=== PATIENT | female | born 1940 | race Caucasian/White ===

== ENCOUNTER 2020-06-13 22:33 | Observation (INO) ==
--- OUTSIDE RECORDS SUMMARY | 2020-06-13 22:36 | External Medical Summary | Continuity of Care Document ---
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 Start: 11-Apr-2016 Refills: 0 Aspirin 81 MG TABS; TAKE 1 TABLET DAILY. , M.D. Start: 04-Aug-2014 Refills: 0 Multi-Day Oral Tablet; TAKE 1 TABLET DAILY. , M.D. Start: 04-Aug-2014 Refills: 0 Calcium 600 MG Oral Tablet; Take 1 tablet daily , M.D. Start: 04-Aug-2014 Refills: 0 Feosol 45 MG TABS; Take 1 tablet daily , M.D. S tart: 04-Aug-2014 Refills: 0 Lexapro 20 MG Oral Tablet; TAKE 1 TABLET DAILY. , M.D. Start: 04-Aug-2014 Refills: 0 Atenolol 100 MG Oral Tablet; TAKE 1 TABLET DAILY DIRECTED . , M.D. Start: 04-Aug-2014 Refills: 0 hydroCHLOROthiazide 25 MG Oral Tablet; TAKE 1 TABLET DAILY A S DIRECTED. , M.D. Start: 04-Aug-2014 Refills: 0 Fenofibrate Micronized 67 MG Oral Capsule; TAKE 1 CAPSULE DA LINETTE. M.D. Start: 04-Aug-2014 Refills: 0 Levothyroxine Sodium 150 MCG Oral Tablet ; TAKE 1 TABLET DAILY DIRECTED. FIRST THING IN THE AM ON EMPTY STOMACH WITH GLASS OF H2O WTIH NOTHING TO EAT FOR 30 MIN. CAN Nicholson Start: 15-Dec-2015 Quantity: 90 Refills: 3 Procedures Procedures not documented Immunizations Immunizations not documented Family History Mother No pertinent family history (V49.89) (Z78.9) Status: Active Social History - Smoking Status Never smoked tobacco Plan of Treatment Planned Observations Planned Goals not documented Results No Known Results Results not documented
[2020-06-13] MEDS ORDERED: PIPERACILL/TAZOBAC CONSULT ACTIVE PRN (22:44)
[2020-06-13] MEDS ORDERED: VANCOMYCIN CONSULT ACTIVE PRN (22:44)
[2020-06-13] MEDS ORDERED: PIPERACILLIN/TAZOBACTAM 4.5 GM/120 ML BAG IV ONE (22:44)
[2020-06-13] MEDS ORDERED: VANCOMYCIN HCL 1,500 MG in SODIUM CHLORIDE 0.9% 500 ML IV SCH (22:45)
[2020-06-13 22:53] LABS: Basophils # (auto) 0.02 K/uL (0-0.2); Basophils % (auto) 0.2 %; Eosinophils # (auto) 0.05 K/uL (0-0.5); Eosinophils % (auto) 0.4 %; Hematocrit (blood only) 27.8 % (37-47); Hemoglobin 9.9 g/dL (12.0-16.0); Immature Granulocytes # (auto) 0.04 K/uL (0.00-0.02); Immature Granulocytes % (auto) 0.3 %; Lymphocytes # (auto) 1.07 K/uL (1.2-3.4); Lymphocytes % (auto) 9.2 %; Mean Corpuscular Hemoglobin 31.2 pg (25-34); Mean Corpuscular Hgb Conc 35.6 g/dL (32-36); Mean Corpuscular Volume 87.7 fL (80-100); Mean Platelet Volume 9.1 fL (7.4-10.4); Monocytes # (auto) 0.75 K/uL (0.11-0.59); Monocytes % (auto) 6.5 %; Neutrophils # (auto) 9.67 K/uL (1.4-6.5); Neutrophils % (auto) 83.4 %; Platelet Count 269 K/uL (130-400); RDW Standard Deviation 45.1 fL (36.4-46.3); Red Blood Count 3.17 M/uL (4.2-5.4)
[2020-06-13 23:02] LABS: INR 1.1 (0.9-1.1); Partial Thromboplastin Ratio 0.8; Partial Thromboplastin Time 21.3 Seconds (21.0-31.0); Prothrombin Time 11.9 Seconds (9.0-12.0)
[2020-06-13 23:14] LABS: Alanine Aminotransferase 22 U/L (12-78); Albumin Level 3.4 gm/dl (3.4-5.0); Aspartate Aminotransferase 21 U/L (15-37); BUN Creatinine Ratio 18.9 (10-20); Blood Urea Nitrogen 22 mg/dl (7-18); Calcium 9.1 mg/dl (8.5-10.1); Carbon Dioxide 25 mmol/L (21-32); Chloride 110 mmol/L (98-107); Est GFR (African American) 50.1; Est GFR (Non-African American) 43.2; Glucose 135 mg/dl (70-99); Magnesium 1.7 mg/dl (1.8-2.4); Potassium 3.7 mmol/L (3.5-5.1); Sodium 142 mmol/L (136-145)
[2020-06-13 23:19] LABS: Alkaline Phosphatase 57 U/L (45-117); Bilirubin,Total 0.3 mg/dl (0.2-1); Globulin 3.5 gm/dl (2.5-4.0); Total Protein 6.9 gm/dl (6.4-8.2); Troponin I < 0.015 ng/ml (0-0.045)
[2020-06-13 23:36] LABS: Appearance Urine Clear (Clear); Bacteria Urine Automated 2+ (Negative); Bilirubin Urine Negative (Negative); Blood Urine Negative (Negative); Cast Urine Automated 0 /lpf (0-5); Color Urine Yellow; Glucose Urine UA Negative (Negative); Ketones Urine Negative (Negative); Leukocyte Esterase Urine Trace (Negative); Nitrite Urine Negative (Negative); Protein Urine Negative (Negative); RBC Urine Automated 0-4 /hpf (0-4); Specific Gravity Urine 1.017 (1.000-1.030); Urobilinogen Urine Negative (Negative)
--- NOTE | 2020-06-14 00:39 | Emergency Department Note ---
Impression & Plan Fever, Productive cough, Abdominal pain, LLQ, Leukocytosis, Diverticulitis large intestine ED Provider Note INFORMANT: Patient EMS ED PROVIDER(S): Stepan Ojeda MD CHIEF COMPLAINT: Illness PLAN: Disposition: Admitted Condition: Good MEDICAL DECISION MAKING: Patient presented to emerge department because of illness. She was febrile. She stated she was profoundly weak and had a productive cough. Chest imaging was performed and showed some mild perihilar congestion on the left. She had a mild leukocytosis on CBC. Chemistry panel was unremarkable. Urinalysis did show some bacteriuria. The patient had a negative rapid COVID test performed. She did have abdominal pain on examination in the left lower quadrant. CT imaging was performed and did reveal colonic diverticulitis. She was treated with Zosyn and vancomycin initially because of concerns for sepsis. This will cover the diverticulitis well. Given the profound weakness I discussed further management in the hospital. Family was very much in agreement. The patient was as well. Consultation was made with the hospitalist service, Dr. Jerrod mcclain. The patient was evaluated by the team in the ER and admitted. Triage Nursing notes reviewed and agree them. Additional history obtained from EMS and family Vital Signs: reviewed and remarkable for fever Differential diagnosis: Viral syndrome, colitis, diverticulitis, pharyngitis, pneumonia, influenza, meningitis, urinary tract infection, sepsis, bacteremia, as well as other pathologies. Diagnostics interpreted by me: ECG: Rate: 88 Rhythm:Normal sinus [place]:Normal QRS:Normal ST segements:No elevation or depression Other:No PACs or PVCs Cardiac Monitoring: Cardiac monitoring ordered by me: The patient was placed on continuous cardiac monitoring and observed. It revealed a normal sinus rhythm at 92 beats per minute without ectopy or evidence of dysrhythmia. Imaging studies: Chest x-ray shows perihilar congestion. No pneumothorax or free air. CT imaging of the abdomen pelvis reveals mild diverticulitis of the distal colon. Diverticulosis of the sigmoid noted. I refer you to the EMR for further details. Consultation(s): [facility] service HPI: The patient is a 79 year old female who presents to the Emergency Room with complaints of fever. This started a few days ago and is worsening. The patient also notes the following associated symptoms, productive cough and generalized weakness. The patient has found no relieving factors. Patient notes that she has some mild left lower quadrant burning abdominal pain. This has been going on for several days as well. Over a week ago she started with having diarrhea and had some nausea and vomiting. The nausea, vomiting diarrhea has since resolved. She does note several family members that have been sick with flulike symptoms. Her granddaughter was tested negative for coronavirus. Pt denies LOC, headache, diaphoresis, visual changes, neck pain, chest pain, back pain, melena, hematochezia, urinary symptoms, numbness, lymphadenopathy, rash, or other complaints. ROS: See above HPI for pertinent positives & negatives. A total of 10 systems reviewed and were otherwise negative. PAST MEDICAL HISTORY:See Below hypertension, C. difficile PAST SURGICAL HISTORY:See Below thyroidectomy FAMILY HISTORY:See Below SOCIAL HISTORY:See Below lives with family HOME MEDICATIONS:See Below ALLERGIES:See Below VITALS:See Below PHYSICAL EXAMINATION: GENERAL: Awake, alert, mildly ill-appearing, in no distress HENT: Normocephalic, atraumatic. Oropharynx unremarkable. EYES: Normal conjunctiva. Sclera non-icteric. NECK: Inspection normal. Non-tender. Supple. No nuchal rigidity. FROM. No masses. RESPIRATORY: Diminished in the bases otherwise clear to auscultation. No wheezes. No rales. Mild increased respiratory effort. CARDIAC: Normal rate. Normal rhythm. No murmurs. No rubs. Extremities warm and well perfused. Pulses equal. No JVD. GI: Soft, non-distended. Left lower quadrant tenderness to palpation. No rebound or guarding. No masses. RECTAL: Deferred. MUSCULOSKELETAL: Atraumatic. Chest examination reveals no tenderness. The back is symmetrical on inspection without obvious abnormality. There is no CVA tenderness to palpation. No joint edema. LOWER EXTREMITIES: Calves are equal size bilaterally and non-tender. No edema. No discoloration. NEURO: Normal sensorium. No sensory or motor deficits noted. SKIN: No rash or jaundice noted. ED COURSE: Critical Care: None Stepan Ojeda MD Past Med/Surg History Social History Smoking Status: Never smoker Feels Safe at Home: Yes Allergies Allergies Allergy/AdvReac Type Severity Reaction Status Date / Time No Known Allergies Allergy Unverified 06/13/20 23:45 Home Meds Home Medications Medication Instructions Recorded Confirmed amlodipine 5 mg PO DAILY 06/13/20 06/13/20 aspirin [Aspirin Low-Strength] 81 mg PO DAILY 06/13/20 06/13/20 carvedilol 25 mg PO BID 06/13/20 06/13/20 escitalopram oxalate 20 mg PO DAILY 06/13/20 06/13/20 fenofibrate micronized 134 mg PO DAILY 06/13/20 06/13/20 fluocinonide 1 applic TOPICAL BID 06/13/20 06/13/20 furosemide 20 mg PO DAILY 06/13/20 06/13/20 hydralazine 50 mg PO TID 06/13/20 06/13/20 ketoconazole 1 applic TOPICAL UD 06/13/20 06/13/20 levothyroxine 175 mcg PO DAILY 06/13/20 06/13/20 lisinopril 20 mg PO BID 06/13/20 06/13/20 multivitamin [Multiple Vitamin] 1 tab PO DAILY 06/13/20 06/13/20 phenytoin sodium extended 200 mg PO DAILY 06/13/20 06/13/20 phenytoin sodium extended 300 mg PO AMHS 06/13/20 06/13/20 Results & Data (ED) Vital Signs Vital Signs - 24 hr 06/13/20 22:40 06/13/20 23:00 06/13/20 23:18 Temperature 37.6 C H Temperature Source Oral Pulse Rate 90 87 83 Pulse Rate from SpO2 Sensor 91 H 86 Respiratory Rate 31 H 24 23 Respiratory Effort / Characteristics Non-Labored Spontaneous Respiratory Depth Normal Blood Pressure 166/67 H 159/55 H 159/55 H Blood Pressure Mean 98 100 89 Pulse Oximetry 95 97 95 Oxygen Delivery Method Room Air Room Air Room Air Sepsis Recent Fever Within 48 Hours Yes Sepsis New/Unexplained Change in Mental Status No Sepsis Action Taken by Nursing No Action Required 06/13/20 23:30 06/13/20 23:35 06/14/20 00:00 Temperature Temperature Source Pulse Rate 80 78 Pulse Rate from SpO2 Sensor 81 Respiratory Rate 24 24 Respiratory Effort / Characteristics Respiratory Depth Blood Pressure 123/63 122/48 L Blood Pressure Mean 97 77 Pulse Oximetry 96 96 Oxygen Delivery Method Room Air Room Air Sepsis Recent Fever Within 48 Hours Sepsis New/Unexplained Change in Mental Status Sepsis Action Taken by Nursing 06/14/20 00:30 06/14/20 01:03 Temperature Temperature Source Pulse Rate 76 82 Pulse Rate from SpO2 Sensor Respiratory Rate 24 24 Respiratory Effort / Characteristics Respiratory Depth Blood Pressure 119/66 168/79 H Blood Pressure Mean 91 120 Pulse Oximetry 94 98 Oxygen Delivery Method Sepsis Recent Fever Within 48 Hours Sepsis New/Unexplained Change in Mental Status Sepsis Action Taken by Nursing Laboratory Data Result diagrams: 06/13/20 22:42 06/13/20 22:42 Lab Results 06/13/20 06/13/20 06/13/20 Range/Units 22:42 22:42 22:42 WBC 11.60 H (4.8-10.8) K/uL RBC 3.17 L (4.2-5.4) M/uL Hgb 9.9 L (12.0-16.0) g/dL Hct 27.8 L (37-47) % MCV 87.7 (80-100) fL MCH 31.2 (25-34) pg MCHC 35.6 (32-36) g/dL RDW Std Deviation 45.1 (36.4-46.3) fL RDW Coeff of Gee 14.0 (11.5-14.5) % Plt Count 269 (130-400) K/uL MPV 9.1 (7.4-10.4) fL Immature Gran % (Auto) 0.3 % Neut % (Auto) 83.4 % Lymph % (Auto) 9.2 % [place] % (Auto) 6.5 % Eos % (Auto) 0.4 % Baso % (Auto) 0.2 % Neut # (Auto) 9.67 H (1.4-6.5) K/uL Lymph # (Auto) 1.07 L (1.2-3.4) K/uL [place] # (Auto) 0.75 H (0.11-0.59) K/uL Eos # (Auto) 0.05 (0-0.5) K/uL Baso # (Auto) 0.02 (0-0.2) K/uL Immature Gran # (Auto) 0.04 H (0.00-0.02) K/uL PT 11.9 (9.0-12.0) Seconds INR 1.1 (0.9-1.1) APTT 21.3 (21.0-31.0) Seconds PTT Ratio 0.8 Sodium 142 (136-145) mmol/L Potassium 3.7 (3.5-5.1) mmol/L Chloride 110 H (98-107) mmol/L Carbon Dioxide 25 (21-32) mmol/L Anion Gap 7.0 (3-11) BUN 22 H (7-18) mg/dl Creatinine 1.18 (0.6-1.2) mg/dl Est Cr Clr Drug Dosing Not Reportable Est GFR ( Amer) 50.1 Est GFR (Non-Af Amer) 43.2 BUN/Creatinine Ratio 18.9 (10-20) Glucose 135 H (70-99) mg/dl Lactate (0.4-2.0) mmol/L Calcium 9.1 (8.5-10.1) mg/dl Magnesium 1.7 L (1.8-2.4) mg/dl Total Bilirubin 0.3 (0.2-1) mg/dl AST 21 (15-37) U/L ALT 22 (12-78) U/L Alkaline Phosphatase 57 (45-117) U/L Troponin I < 0.015 (0-0.045) ng/ml Total Protein 6.9 (6.4-8.2) gm/dl Albumin 3.4 (3.4-5.0) gm/dl Globulin 3.5 (2.5-4.0) gm/dl Albumin/Globulin Ratio 1.0 (0.9-2) Procalcitonin (0-0.5) ng/ml Urine Color Urine Appearance (Clear) Urine pH (4.5-7.5) Ur Specific [place] (1.000-1.030) Urine Protein (Negative) Urine Glucose (UA) (Negative) Urine Ketones (Negative) Urine Blood (Negative) Urine Nitrite (Negative) Urine Bilirubin (Negative) Urine Urobilinogen (Negative) Ur Leukocyte Esterase (Negative) Urine WBC (Auto) (0-5) /hpf Urine RBC (Auto) (0-4) /hpf U Hyaline Cast (Auto) (0-5) /lpf U Epithel Cells (Auto) (0-5) /lpf Urine Bacteria (Auto) (Negative) COVID-19 Eval Order COVID-19 PCR (Negative) 06/13/20 06/13/20 06/13/20 Range/Units 22:42 22:45 22:50 WBC (4.8-10.8) K/uL RBC (4.2-5.4) M/uL Hgb (12.0-16.0) g/dL Hct (37-47) % MCV (80-100) fL MCH (25-34) pg MCHC (32-36) g/dL RDW Std Deviation (36.4-46.3) fL RDW Coeff of Gee (11.5-14.5) % Plt Count (130-400) K/uL MPV (7.4-10.4) fL Immature Gran % (Auto) % Neut % (Auto) % Lymph % (Auto) % [place] % (Auto) % Eos % (Auto) % Baso % (Auto) % Neut # (Auto) (1.4-6.5) K/uL Lymph # (Auto) (1.2-3.4) K/uL [place] # (Auto) (0.11-0.59) K/uL Eos # (Auto) (0-0.5) K/uL Baso # (Auto) (0-0.2) K/uL Immature Gran # (Auto) (0.00-0.02) K/uL PT (9.0-12.0) Seconds INR (0.9-1.1) APTT (21.0-31.0) Seconds PTT Ratio Sodium (136-145) mmol/L Potassium (3.5-5.1) mmol/L Chloride (98-107) mmol/L Carbon Dioxide (21-32) mmol/L Anion Gap (3-11) BUN (7-18) mg/dl Creatinine (0.6-1.2) mg/dl Est Cr Clr Drug Dosing Est GFR ( Amer) Est GFR (Non-Af Amer) BUN/Creatinine Ratio (10-20) Glucose (70-99) mg/dl Lactate (0.4-2.0) mmol/L Calcium (8.5-10.1) mg/dl Magnesium (1.8-2.4) mg/dl Total Bilirubin (0.2-1) mg/dl AST (15-37) U/L ALT (12-78) U/L Alkaline Phosphatase (45-117) U/L Troponin I (0-0.045) ng/ml Total Protein (6.4-8.2) gm/dl Albumin (3.4-5.0) gm/dl Globulin (2.5-4.0) gm/dl Albumin/Globulin Ratio (0.9-2) Procalcitonin < 0.05 (0-0.5) ng/ml Urine Color Yellow Urine Appearance Clear (Clear) Urine pH 8.0 H (4.5-7.5) Ur Specific [place] 1.017 (1.000-1.030) Urine Protein Negative (Negative) Urine Glucose (UA) Negative (Negative) Urine Ketones Negative (Negative) Urine Blood Negative (Negative) Urine Nitrite Negative (Negative) Urine Bilirubin Negative (Negative) Urine Urobilinogen Negative (Negative) Ur Leukocyte Esterase Trace H (Negative) Urine WBC (Auto) 1-5 (0-5) /hpf Urine RBC (Auto) 0-4 (0-4) /hpf U Hyaline Cast (Auto) 0 (0-5) /lpf U Epithel Cells (Auto) 5-10 H (0-5) /lpf Urine Bacteria (Auto) 2+ H (Negative) COVID-19 Eval Order Covid19 Done at [facility] COVID-19 PCR (Negative) 06/13/20 06/13/20 Range/Units 22:50 23:10 WBC (4.8-10.8) K/uL RBC (4.2-5.4) M/uL Hgb (12.0-16.0) g/dL Hct (37-47) % MCV (80-100) fL MCH (25-34) pg MCHC (32-36) g/dL RDW Std Deviation (36.4-46.3) fL RDW Coeff of Gee (11.5-14.5) % Plt Count (130-400) K/uL MPV (7.4-10.4) fL Immature Gran % (Auto) % Neut % (Auto) % Lymph % (Auto) % [place] % (Auto) % Eos % (Auto) % Baso % (Auto) % Neut # (Auto) (1.4-6.5) K/uL Lymph # (Auto) (1.2-3.4) K/uL [place] # (Auto) (0.11-0.59) K/uL Eos # (Auto) (0-0.5) K/uL Baso # (Auto) (0-0.2) K/uL Immature Gran # (Auto) (0.00-0.02) K/uL PT (9.0-12.0) Seconds INR (0.9-1.1) APTT (21.0-31.0) Seconds PTT Ratio Sodium (136-145) mmol/L Potassium (3.5-5.1) mmol/L Chloride (98-107) mmol/L Carbon Dioxide (21-32) mmol/L Anion Gap (3-11) BUN (7-18) mg/dl Creatinine (0.6-1.2) mg/dl Est Cr Clr Drug Dosing Est GFR ( Amer) Est GFR (Non-Af Amer) BUN/Creatinine Ratio (10-20) Glucose (70-99) mg/dl Lactate 1.1 (0.4-2.0) mmol/L Calcium (8.5-10.1) mg/dl Magnesium (1.8-2.4) mg/dl Total Bilirubin (0.2-1) mg/dl AST (15-37) U/L ALT (12-78) U/L Alkaline Phosphatase (45-117) U/L Troponin I (0-0.045) ng/ml Total Protein (6.4-8.2) gm/dl Albumin (3.4-5.0) gm/dl Globulin (2.5-4.0) gm/dl Albumin/Globulin Ratio (0.9-2) Procalcitonin (0-0.5) ng/ml Urine Color Urine Appearance (Clear) Urine pH (4.5-7.5) Ur Specific [place] (1.000-1.030) Urine Protein (Negative) Urine Glucose (UA) (Negative) Urine Ketones (Negative) Urine Blood (Negative) Urine Nitrite (Negative) Urine Bilirubin (Negative) Urine Urobilinogen (Negative) Ur Leukocyte Esterase (Negative) Urine WBC (Auto) (0-5) /hpf Urine RBC (Auto) (0-4) /hpf U Hyaline Cast (Auto) (0-5) /lpf U Epithel Cells (Auto) (0-5) /lpf Urine Bacteria (Auto) (Negative) COVID-19 Eval Order COVID-19 PCR NEGATIVE (Negative) Administered Medications Vancomycin HCl 1,500 mg/ (Sodium Chloride) 530 mls @ 200 mls/hr IV UD ELISABETH Stop: 06/15/20 22:44 Last Admin: 06/13/20 23:21 Dose: 200 mls/hr Documented by: [id number] Discontinued Medications Piperacillin Sod/Tazobactam Sod (Zosyn) 4.5 gm in 120 mls @ 240 mls/hr IV NOW ONE Stop: 06/13/20 23:13 Last Infusion: 06/13/20 23:51 Dose: 0 mls/hr Documented by: [id number] Admin: 06/13/20 23:21 Dose: 240 mls/hr Documented by: [id number] Discharge Plan Visit Data Chief Complaint: Illness Stated Complaint: FLU LIKE SX, COUGH, FEVER, CHILLS, DIARRHEA, ED Provider: Stepan Ojeda Discharge Problem: Fever, Productive cough, Abdominal pain, LLQ, Leukocytosis, Diverticulitis large intestine Forms Stand Alone Forms: [facility] Prescriptions Prescriptions: No Action levothyroxine 175 mcg tablet 175 mcg PO DAILY RF: 0 lisinopril 20 mg tablet 20 mg PO BID RF: 0 amlodipine 5 mg tablet 5 mg PO DAILY RF: 0 aspirin [Aspirin Low-Strength] 81 mg Tablet,Delayed Release (Dr/Ec) 81 mg PO DAILY RF: 0 carvedilol 25 mg tablet 25 mg PO BID RF: 0 fenofibrate micronized 134 mg capsule 134 mg PO DAILY RF: 0 escitalopram oxalate 20 mg tablet 20 mg PO DAILY RF: 0 ketoconazole 2 % shampoo 1 applic TOPICAL UD RF: 0 phenytoin sodium extended 100 mg capsule 300 mg PO AMHS RF: 0 phenytoin sodium extended 100 mg capsule 200 mg PO DAILY RF: 0 hydralazine 50 mg tablet 50 mg PO TID RF: 0 furosemide 20 mg tablet 20 mg PO DAILY RF: 0 fluocinonide 0.05 % solution 1 applic TOPICAL BID RF: 0 multivitamin [Multiple Vitamin] Tablet 1 tab PO DAILY RF: 0
--- NOTE | 2020-06-14 02:06 | History & Physical Report ---
Date of Service June 14, 2020 Assessment & Plan (1) Fever: (2) Abdominal pain, LLQ: Leia is an 79-year-old female with a past medical history of hypertension, hyperlipidemia, depression, carotid artery stenosis, mitral regurg, history of seizures during on anticonvulsants without seizures in the last 5 years who presents with weakness and left lower quadrant abdominal pain. Diverticulitis CT-Ab shows of lower quadrant thickening of the distal left colon consistent with colitis vs diverticulitis. Followup for resolution recommended by radiology. -Patient reportedly febrile to 100.0 prior to admission Leukocytosis to 11.6 - Rocephin 2 g IV daily plus Flagyl 500 mg every 8 hours - Clear liquid diet - Follow clinically. Chronic anemia Patient with chronic iron deficiency anemia Hemoglobin 9.9 Hold iron in the setting of GI illness Hypertension Continue amlodipine Continue carvedilol Continue lisinopril Hyperlipidemia, carotid artery stenosis Continue fenofibrate Patient not on statin therapy History of seizures without recent seizure - Continue home dosing of phenytoin 300mg PO AM/HS + 200mg daily - No recent seizures Asymptomatic bacteriuria Patient without dysuria, new symptoms. 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 She says she recently had a colonoscopy which shoed Slowly worsening. Chills x1 day. Was told she had a fever to 100.[address] ambulance [address] the way over. Her appetite is decreased for a few days, althoguh she notes she 'lives by myself and don't eat alot, just enough.' Decreased po intake 3-4 days. Usually has constipation, but had some loose bowels 1 week ago. Last BM this morning was soft but not liquid, no blood. Her bowel movements are normally black because she takes oral iron. No lightheadedness, dizziness normally but when she had diarrhea she was a little lightheaded on the commode. No chest pain or chest pressure. The pain in her belly seem sto be saying about the same as when it started, has been coming or going throughout the day. History of UTIs which felt similar, but which were lower down. No recent polyuria/incontinence/dysuria. MEdHx: Reviewed. Hx of seizures, no seizures in 7 years. Meds: Reviewed SHx: Reviewed Social: No EtoH, tobacco, or recreational drug use. Allergies: NKDA. CODE STATUS: Full Code Allergies Allergy/AdvReac Type Severity Reaction Status Date / Time No Known Allergies Allergy Unverified 06/13/20 23:45 Home Medications Home Medications Medication Instructions Recorded Confirmed Type amlodipine 5 mg PO DAILY 06/13/20 06/13/20 History aspirin [Aspirin Low-Strength] 81 mg PO DAILY 06/13/20 06/13/20 History carvedilol 25 mg PO BID 06/13/20 06/13/20 History escitalopram oxalate 20 mg PO DAILY 06/13/20 06/13/20 History fenofibrate micronized 134 mg PO DAILY 06/13/20 06/13/20 History fluocinonide 1 applic TOPICAL BID 06/13/20 06/13/20 History furosemide 20 mg PO DAILY 06/13/20 06/13/20 History hydralazine 50 mg PO TID 06/13/20 06/13/20 History ketoconazole 1 applic TOPICAL UD 06/13/20 06/13/20 History levothyroxine 175 mcg PO DAILY 06/13/20 06/13/20 History lisinopril 20 mg PO BID 06/13/20 06/13/20 History multivitamin [Multiple Vitamin] 1 tab PO DAILY 06/13/20 06/13/20 History phenytoin sodium extended 200 mg PO DAILY 06/13/20 06/13/20 History phenytoin sodium extended 300 mg PO AMHS 06/13/20 06/13/20 History Past Med/Surg History Social History Smoking Status: Never smoker Second Hand Exposure: No; Do You Dip or Chew Tobacco: No; Tobacco Cessation Education Requested by Patient: No Hx Alcohol Use: No Hx Substance Use: No Preferred Language: Portuguese Communication Ability: Effective Locomotive Firer/Fireman Required: No Beliefs That Will Affect Care: None Current Living Situation: Alone Other Information That Helps Us Care for You: No Feels Safe at Home: Yes Safety Concerns: Feels Safe At This Time Review of Systems Review of Systems: All systems reviewed & are unremarkable except as noted in HPI & below Physical Exam Physical Exam: General: A&Ox3. NAD. Cooperative. HEENT: Atraumatic, normocephalic. Pulm: CTAB A&P. -wheezes, -rales, -rhonchi. Symmetrical chest rise. No increase work of breathing. No respiratory distress. Cardiac: RRR, +systolic murmer, -rg. Radial pulses intact and symmetrical. Abdominal: LLQ TTP. Otherwise NT, no rebound, soft, ND. Extremities: No ankle edema. Extremities warm, dry. Bench Assembly Inspector strength, ankle plantar flexion/dorsiflexion 5/5. PT pulses intact bilaterally and symmetrical. Results & Data Results & Data ([facility]) Vital Signs (Past 12 Hours) Vital Signs Temp Pulse Resp BP Pulse Ox 06/14/20 01:03 82 24 168/79 H 98 06/14/20 00:30 76 24 119/66 94 06/14/20 00:00 78 24 122/48 L 96 06/13/20 23:30 80 24 123/63 96 06/13/20 23:18 37.6 C H 83 23 159/55 H 95 06/13/20 23:00 87 24 159/55 H 97 06/13/20 22:40 90 31 H 166/67 H 95 Supervising Physician Co-Signing Physician Notes Attending addendum: I have physically seen this patient, have supervised the medical residents activities, and agree with the H&P unless as otherwise noted. Assessment and Plan: Diverticulitis/colitis- CT with involvement of distal left colon. Placed on ceftriaxone 2 g IV daily and Flagyl 500 mg IV every 8 hours Clear liquid diet as tolerated Acetaminophen 650 mg p.o. every 6 hours PRN mild pain or temperature Hypertension- Continue amlodipine, carvedilol and lisinopril. Follow serial BMP and magnesium levels Seizure disorder- Continue usual dosing of phenytoin, check level in a.m. Bacteriuria- Follow urine culture sensitivities Ceftriaxone IV as noted above Chronic iron deficiency anemia- Hemoglobin 9.9. Remaining orders and notations as noted. Resident Activity Tracking Resident Involvement: Resident Care Provided Care Provided: Adult [facility]
[2020-06-14] MEDS ORDERED: ACETAMINOPHEN 325 MG TAB PO PRN (03:57)
[2020-06-14] MEDS ORDERED: ONDANSETRON INJ 2 MG/ML 2 ML VIAL IV PRN (03:57)
[2020-06-14] MEDS: SODIUM CHLORIDE 0.9% 1000ML 1,000 ML IV SCH ×2 (04:01→17:17)
[2020-06-14] MEDS: cefTRIAXone SODIUM 2,000 MG in DEXTROSE 5% 50 ML IV SCH (05:01)
[2020-06-14] MEDS: metroNIDAZOLE 500 MG/100 ML BAG IV SCH ×3 (05:40→20:15)
[2020-06-14] MEDS: LEVOTHYROXINE SODIUM 175 MCG TABLET PO SCH (05:43)
--- NOTE | 2020-06-14 07:50 | XRay Report ---
XR chest 1V portable HISTORY: SEPSIS COMPARISON: Chest 12/01/2014. FINDINGS: The heart remains mildly enlarged. There is elevation the right hemidiaphragm unchanged. A few bibasilar linear densities favor subsegmental atelectasis. This is also unchanged. No new focal l edgar consolidations to suggest pneumonia. No evidence for pulmonary edema. No pneumothorax. IMPRESSION: No significant change compared to the prior study. No acute process. ACT 112: Negative or not required by law. Electronically signed by: Reynaldo Randhawa M.D. 06/14/2020 7:48 AM
--- NOTE | 2020-06-14 08:05 | CT Scan Report ---
CT SCAN OF THE ABDOMEN AND PELVIS WITHOUT CONTRAST CLINICAL HISTORY: fever, cough, LLQ pain COMPARISON STUDY: None TECHNIQUE: CT scan of the abdomen and pelvis was performed from the lung bases to the proximal femurs . Images are reviewed in the axial, sagittal, and coronal planes. IV contrast was not administered fo r this examination. A dose lowering technique was utilized adhering to the principles of ALARA. CT DOSE: 451.02 mGy.cm FINDINGS: Lower chest: There is respiratory motion artifact. There are no significant pleural effusions. There is no lobar consolidation the heart is enlarged Liver: There are subcentimeter hepatic hypodensity, which are too small to characterize Gallbladder: There is increased density within the gallbladder suggestive of milk of calcium or vicar ious excretion. There are calculi in the region of the gallbladder neck. Spleen: Normal in size and attenuation. Pancreas: Unremarkable. Adrenal glands: Unremarkable. Kidneys: Renal hypodensities are nonspecific likely represent cysts Bowel: There are no transition zones indicate bowel obstruction. There is colonic diverticulosis. The re is colonic wall thickening involving the distal descending colon with minimal infiltration of the surrounding fat. The findings likely represent diverticulitis although an infectious/inflammatory col itis could appear similar. Peritoneum: There is no intraperitoneal free air or abdominal ascites. Vasculature: The abdominal aorta is normal in course and caliber. Adenopathy: None. Pelvic viscera: The bladder, and pelvic viscera are unremarkable. Skeletal structures: No destructive osseous lesions are seen. IMPRESSION: 1. Colonic wall thickening involving the distal descending colon with minimal infiltration of the danial rounding fat. Diagnostic considerations include diverticulitis versus infectious/inflammatory colitis . Follow-up recommended 2. No evidence of bowel obstruction. No evidence of free air 3. Increased density of the gallbladder. Milk of calcium versus vicarious excretion. Calculi in the r egion the gallbladder neck. ACT 112: Negative or not required by law. Electronically signed by: Mookie Foster M.D. 06/14/2020 8:04 AM
[2020-06-14] MEDS: TRICOR~ORDER AWAITING ACTION SCH ×3 (08:06→23:19)
[2020-06-14] MEDS: HydrALAZINE TAB 50 MG TAB PO SCH ×3 (08:43→20:14)
[2020-06-14] MEDS: carvediloL 25 MG TAB PO SCH ×2 (08:44→20:15)
[2020-06-14] MEDS: PHENYTOIN SODIUM ER 100 MG CAP PO SCH ×3 (08:44→20:14)
[2020-06-14] MEDS: AMLODIPINE BESYLATE 5 MG TAB PO SCH (08:45)
[2020-06-14] MEDS: ESCITALOPRAM OXALATE 20 MG TAB PO SCH (08:45)
[2020-06-14] MEDS: MULTIVITAMIN TAB PO SCH (08:45)
[2020-06-14] MEDS: FUROSEMIDE 20 MG TAB PO SCH (08:45)
[2020-06-14] MEDS: MAGNESIUM OXIDE 400 MG TAB PO SCH ×2 (08:45→20:15)
[2020-06-14] MEDS: lisinopriL 20 MG TAB PO SCH ×2 (08:45→20:14)
[2020-06-14] MEDS: ASPIRIN 81 MG ECTAB PO SCH (08:45)
--- NOTE | 2020-06-14 12:10 | Electrocardiogram Report ---
Test Reason : Blood Pressure : / mmHG Vent. 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
--- NOTE | 2020-06-14 12:44 | Hospitalist Progress Note ---
Date of Service June 14, 2020 Assessment & Plan (1) Fever: (2) Abdominal pain, LLQ: Leia is an 79-year-old female with a past medical history of hypertension, hyperlipidemia, depression, carotid artery stenosis, mitral regurg, history of seizures during on anticonvulsants without seizures in the last 5 years who was admitted on 06/14/[address] Diverticul[address] CT-Ab shows of lower quadrant thickening of the distal left colon consistent with colitis vs diverticulitis. Follow-up for resolution recommended by radiology. -Patient reportedly febrile to 100.0 prior to admission Leukocytosis to 11.6 - Continue Rocephin 2 g IV daily plus Flagyl 500 mg IV Q8H - Clear liquid diet - IVFs discontinued as patient takes Furosemide 20 mg PO daily as outpatient - Follow clinically. Chronic anemia Chronic iron deficiency anemia Hemoglobin 9.9 - No clinical or radiographic signs of active bleeding Hold iron in the setting of GI illness - Continue to trend CBC daily - consider outpatient colonscopy after discharge to r/o colon cancer Hypertension Continue amlodipine 5 mg PO daily Continue carvedilol 25 mg PO BID Continue lisinopril 20 mg PO BID Hyperlipidemia, carotid artery stenosis Continue fenofibrate 134 mg PO daily Patient not on statin therapy History of seizures without recent seizure - Continue home dosing of phenytoin 300mg PO AM/HS + 200mg daily - No recent seizures Asymptomatic bacteriuria Patient without dysuria, new symptoms. - Not indicated for treatment, double covered by Rocephin as above UCx pending DVT prophylaxis: Heparin weight-based CODE STATUS: Full code Diet: Clears, advance as tolerated Disposition: Med/surg (3) Productive cough: (4) Leukocytosis: (5) Diverticulitis large intestine: (6) Hypertension: (7) Carotid stenosis, asymptomatic: (8) Generalized convulsive epilepsy without intractable epilepsy: (9) PEG (percutaneous endoscopic gastrostomy) status: Admission and Anticipated Discharge Date Admission Date: June 14, 2020 Supervising Physician Co-Signing Physician Notes I personally examined the patient and verified all minaya points of history and exam, discussed case, and agree with decision making with Dr Chika singh feeling better, thinks could eat more vitals noted nad heent nc at mmm breathing unlabored no accessory muscles good effort abd soft nd mild LLQ tender no guarding no rebound diverticulitis -improving, advance diet, continue ceftriaxone and flagyl, hopefully home tomorrow Subjective No acute events overnight. Afebrile since arrival at hospital, BP increased to 215/66 overnight then down to 185/68 this morning - BP meds will be administered this morning. NSS infusing @ 80cc/hr. Continues to complain of abdominal pain but denies fever/chills, chest pain/palpitations, shortness of breath, cough, nausea/vomiting, dysuria, hematochezia, increased urinary frequency. Review of Systems Constitutional: as per Subjective / HPI Respiratory: as per Subjective / HPI Cardiovascular: as per Subjective / HPI Gastrointestinal: as per Subjective / HPI Genitourinary: as per Subjective / HPI Physical Exam Constitutional: WD/WN, vitals as above no acute distress ENMT: external ear and nose normal, oropharynx normal Neck: normal visual inspection Respiratory: normal respiratory effort, lungs clear to auscultation Cardiovascular: RRR, no murmur, no edema Gastrointestinal (Abdomen): Inspection/Auscultation: normal bowel sounds; abdomen not distended Percussion/Palpation: + abdomen tender (moderate-severe tenderness to palpation of LLQ) and abdomen soft; no guarding and abdomen not rigid Musculoskeletal: no cyanosis or clubbing, extremities motor strength 5/5 Skin: no rashes, warm and dry Psychiatric: A+Ox3, euthymic affect Lymphatic: no cervical lymphadenopathy Results & Data Results & Data ([facility]) Vital Signs (Past 12 Hours) Vital Signs Temp Pulse Pulse Resp BP BP BP 06/14/20 07:04 36.8 C 81 18 185/68 H 06/14/20 04:00 36.8 C 76 20 215/66 H 198/73 H 06/14/20 03:00 74 23 157/87 H 06/14/20 02:30 74 24 144/71 H 06/14/20 02:00 37.2 C 77 20 159/63 H 06/14/20 01:30 75 24 146/86 H 06/14/20 01:03 82 24 168/79 H Pulse Ox 06/14/20 07:04 97 06/14/20 04:00 96 06/14/20 03:00 96 06/14/20 02:30 97 06/14/20 02:00 96 06/14/20 01:30 97 06/14/20 01:03 98 Laboratory Results Magnesium 1.7 UA Yellow, Trace Leuko, 2+ bacteria, 5-10 Epithelial cells COVID-[address] Abd/Pelv 06/14: 1. Colonic wall thickening involving the distal descending colon with minimal infiltration of the surrounding fat. Diagnostic considerations include diverticulitis versus infectious/inflammatory colitis. Follow-up recommended 2. No evidence of bowel obstruction. No evidence of free air 3. Increased density of the gallbladder. Milk of calcium versus vicarious excretion. Calculi in the region the gallbladder neck. CBC Results Results Complete Blood Count Results: RBC 3.17 M/uL (4.2-5.4) L 06/13/20 WBC 11.60 K/uL (4.8-10.8) H 06/13/20 Hgb 9.9 g/dL (12.0-16.0) L 06/13/20 Hct 27.8 % (37-47) L 06/13/20 Plt Count 269 K/uL (130-400) 06/13/20 Chemistry (BMP) Results BMP Results: Sodium 142 mmol/L (136-145) 06/13/20 Potassium 3.7 mmol/L (3.5-5.1) 06/13/20 Chloride 110 mmol/L (98-107) H 06/13/20 BUN 22 mg/dl (7-18) H 06/13/20 Creatinine 1.18 mg/dl (0.6-1.2) 06/13/20 Glucose 135 mg/dl (70-99) H 06/13/20 Resident Activity Tracking Resident Involvement: Resident Care Provided Care Provided: Adult Hospital Medicine
--- NOTE | 2020-06-14 19:18 | Billing Data ---
Date of Service June 14, 2020 Coding Level of Care Code 12727 Subseq Obs Care Lvl 3
--- NOTE | 2020-06-15 04:31 | Billing Data ---
Date of Service June 15, 2020 Coding Level of Care Code 60204 Initial Inpt Care Lvl 2
[2020-06-15] MEDS: metroNIDAZOLE 500 MG/100 ML BAG IV SCH (05:07)
[2020-06-15] MEDS: cefTRIAXone SODIUM 2,000 MG in DEXTROSE 5% 50 ML IV SCH (05:34)
[2020-06-15] MEDS: LEVOTHYROXINE SODIUM 175 MCG TABLET PO SCH (05:47)
[2020-06-15 06:26] LABS: Basophils # (auto) 0.02 K/uL (0-0.2); Basophils % (auto) 0.3 %; Eosinophils # (auto) 0.14 K/uL (0-0.5); Eosinophils % (auto) 2.2 %; Hematocrit (blood only) 24.5 % (37-47); Hemoglobin 8.5 g/dL (12.0-16.0); Immature Granulocytes # (auto) 0.01 K/uL (0.00-0.02); Immature Granulocytes % (auto) 0.2 %; Lymphocytes # (auto) 1.43 K/uL (1.2-3.4); Lymphocytes % (auto) 22.9 %; Mean Corpuscular Hemoglobin 30.9 pg (25-34); Mean Corpuscular Hgb Conc 34.7 g/dL (32-36); Mean Corpuscular Volume 89.1 fL (80-100); Mean Platelet Volume 8.7 fL (7.4-10.4); Monocytes # (auto) 0.45 K/uL (0.11-0.59); Monocytes % (auto) 7.2 %; Neutrophils % (auto) 67.2 %; Platelet Count 223 K/uL (130-400); RDW Coefficient of Variation 14.5 % (11.5-14.5); RDW Standard Deviation 47.5 fL (36.4-46.3); Red Blood Count 2.75 M/uL (4.2-5.4); White Blood Count 6.25 K/uL (4.8-10.8)
[2020-06-15 06:38] LABS: INR 1.2 (0.9-1.1)
[2020-06-15 07:05] LABS: BUN Creatinine Ratio 14.8 (10-20); Calcium 8.2 mg/dl (8.5-10.1); Creatinine Clr Calc Pharmacy 42.9 ml/min; Est GFR (African American) 61.2; Est GFR (Non-African American) 52.8; Magnesium 1.8 mg/dl (1.8-2.4); Potassium 3.7 mmol/L (3.5-5.1)
[2020-06-15] MEDS: TRICOR~ORDER AWAITING ACTION SCH (08:00)
[2020-06-15] MEDS: lisinopriL 20 MG TAB PO SCH (08:01)
[2020-06-15] MEDS: AMLODIPINE BESYLATE 5 MG TAB PO SCH (08:01)
[2020-06-15] MEDS: PHENYTOIN SODIUM ER 100 MG CAP PO SCH ×2 (08:01→11:15)
[2020-06-15] MEDS: ASPIRIN 81 MG ECTAB PO SCH (08:01)
[2020-06-15] MEDS: FUROSEMIDE 20 MG TAB PO SCH (08:01)
[2020-06-15] MEDS: MAGNESIUM OXIDE 400 MG TAB PO SCH (08:01)
[2020-06-15] MEDS: carvediloL 25 MG TAB PO SCH (08:01)
[2020-06-15] MEDS: ESCITALOPRAM OXALATE 20 MG TAB PO SCH (08:02)
[2020-06-15] MEDS: HydrALAZINE TAB 50 MG TAB PO SCH (08:02)
[2020-06-15] MEDS: MULTIVITAMIN TAB PO SCH (08:02)
--- NOTE | 2020-06-15 17:17 | Discharge Summary ---
Date of Service June 15, 2020 Admission HPI Per Admitting Provider Leia presents with 3-4 days of LLQ abdominal pain. She says she recently had a colonoscopy which shoed Slowly worsening. Chills x1 day. Was told she had a fever to 100.[address] over. Her appetite is decreased for a few days, althoguh she notes she 'lives by myself and don't eat alot, just enough.' Decreased po intake 3-4 days. Usually has constipation, but had some loose bowels 1 week ago. Last BM this morning was soft but not liquid, no blood. Her bowel movements are normally black because she takes oral iron. No lightheadedness, dizziness normally but when she had diarrhea she was a little lightheaded on the commode. No chest pain or chest pressure. The pain in her belly seem sto be saying about the same as when it started, has been coming or going throughout the day. History of UTIs which felt similar, but which were lower down. No recent polyuria/incontinence/dysuria. MEdHx: Reviewed. Hx of seizures, no seizures in 7 years. Meds: Reviewed SHx: Reviewed Social: No EtoH, tobacco, or recreational drug use. Allergies: NKDA. CODE STATUS: Full Code Admission Exam Per Admitting Provider Physical Exam: General: A&Ox3. NAD. Cooperative. HEENT: Atraumatic, normocephalic. Pulm: CTAB A&P. -wheezes, -rales, -rhonchi. Symmetrical chest rise. No increase work of breathing. No respiratory distress. Cardiac: RRR, +systolic murmer, -rg. Radial pulses intact and symmetrical. Abdominal: LLQ TTP. Otherwise NT, no rebound, soft, ND. Extremities: No ankle edema. Extremities warm, dry. Shaker Tender strength, ankle plantar flexion/dorsiflexion 5/5. PT pulses intact bilaterally and symmetrical. Principal Diagnosis Acute Diverticulitis Discharge Exam Constitutional: WD/WN, vitals as above no acute distress ENMT: external ear and nose normal, oropharynx normal Neck: normal visual inspection Respiratory: normal respiratory effort, lungs clear to auscultation Cardiovascular: RRR, no murmur, no edema Gastrointestinal (Abdomen): Inspection/Auscultation: normal bowel sounds; abdomen not distended Percussion/Palpation: + abdomen mildly tender to palpation of LLQ and abdomen soft; no guarding and abdomen not rigid Musculoskeletal: no cyanosis or clubbing, extremities motor strength 5/5 Skin: no rashes, warm and dry Psychiatric: A+Ox3, euthymic affect Lymphatic: no cervical lymphadenopathy Discharge Data Allergies Allergy/AdvReac Type Severity Reaction Status Date / Time No Known Allergies Allergy Unverified 06/13/20 23:45 Consultations 06/14/20 01:42 ED Decision to Admit Stat Ordered Studies 06/14/20 00:20 CT abd pelvis wo con Urgent Hospital Course (1) Diverticulitis large intestine: Leia is an 79-year-old female with a past medical history of hypertension, hyperlipidemia, depression, carotid artery stenosis, mitral regurg, history of seizures during on anticonvulsants without seizures in the last 5 years who was admitted on 06/14/2020 for acute diverticulitis. Acute Diverticulitis: Patient was started on two IV antibiotics for the diverticulitis:Rocephin 2g IV daily and Flagyl 500 mg IV Q8H. She was also started on full liquid diet and IV fluids on 06/14. Patient's LLQ pain greatly improved with IV antibiotics and limited diet, and she was advanced to a regular diet on 06/15. She did well with regular diet without nausea, vomiting or worsening of your abdominal pain. Her IV antibiotics were changed to Augmentin 875/125 mg PO BID x7 days. She will contact her PCP if her abdominal pain persists despite completion of antibiotics. Chronic Anemia: Hemoglobin usually ~10 but decreased to 8.5 during hospitalization. Patient did not have any symptoms of anemia while hospitalized - no dizziness, fatigue, or trouble breathing. Likely secondary to hemodilution from IV fluids. She will follow up with her PCP about chronic anemia. Hypertension: SBPs up to 180s in the mornings before scheduled home HTN medications. Patient continued on all home BP medications while in the hospital - Amlodipine 5 mg PO daily, Carvedilol 25 mg PO BID, Furosemide 20 mg PO daily, Hydralazine 50 mg PO TID. She will continue all of her regular HTN medications after discharge as prescribed, and she will follow up with her PCP for continued management of hypertension. Total Time Total Time Spent Total Time Spent (In Minutes): <30 minutes Total Time Includes: Examination of the Patient, Discharge Planning and Medication Reconciliation Discharge Plan Discharge Items Patient Disposition: Home - Self-Care Reason For Visit: DIVERTICULITIS Discharge Diagnosis: Acute Diverticulitis Activity: Per Instructions section Non-emergency contact: Primary Care Provider Call non-emergency contact if: you have any medication questions, your symptoms worsen, your pain is worsening and you have a fever Follow-up/Referrals: Julian Lentz MD [Primary Care Provider] - Diet: Regular Addtl Attending Provider Instructions: You were admitted to [facility] on 06/13 for an acute infection in your bowels, called acute diverticulitis. This infection was the cause of your left lower abdominal pain, and it was confirmed with a CT scan of your abdomen. Acute Diverticulitis: You were started on two IV antibiotics for the diverticulitis: the two antibiotics are called Rocephin and Flagyl. You were also limited to a clear liquid diet and IV fluids. You did well with the antibiotics, limited diet and fluids, and your left lower abdominal pain greatly improved. You were advanced to a regular diet on 06/15 and did well with your breakfast, without nausea, vomiting or worsening of your abdominal pain. Your IV antibiotics were changed to an oral antibiotic called Augmentin on 06/15. You should take this medication in the evening of 06/15, and continue to take it twice per day for 1 week, starting on 06/16. Chronic Anemia: Your blood counts while you were here were low. However, you did not have any symptoms of anemia - no dizziness, fatigue, or trouble breathing. You were also given IV fluids while hospitalized, which can dilute your blood counts. You should follow up with your PCP about your chronic anemia. Hypertension: Your blood pressures were high in the mornings while you were hospitalized, but the pressures went down after you were given your daily blood pressure medications. You should continue all of your regular blood pressure medications after discharge as prescribed, and you should follow up with your PCP for continued management of hypertension. Pending Studies at Discharge: No Stand-Alone Forms: [email or web address], Smoking Cessation Medications and DC Order Prescriptions: New amoxicillin-pot clavulanate [Augmentin] 875-125 mg tablet 1 tab PO BID Qty: 14 RF: 0 Continued levothyroxine 175 mcg tablet 175 mcg PO DAILY RF: 0 lisinopril 20 mg tablet 20 mg PO BID RF: 0 amlodipine 5 mg tablet 5 mg PO DAILY RF: 0 aspirin 81 mg Tablet,Delayed Release (Dr/Ec) 81 mg PO DAILY RF: 0 carvedilol 25 mg tablet 25 mg PO BID RF: 0 fenofibrate micronized 134 mg capsule 134 mg PO DAILY RF: 0 escitalopram oxalate 20 mg tablet 20 mg PO DAILY RF: 0 ketoconazole 2 % shampoo 1 applic TOPICAL UD RF: 0 phenytoin sodium extended 100 mg capsule 300 mg PO AMHS RF: 0 phenytoin sodium extended 100 mg capsule 200 mg PO DAILY RF: 0 hydralazine 50 mg tablet 50 mg PO TID RF: 0 furosemide 20 mg tablet 20 mg PO DAILY RF: 0 fluocinonide 0.05 % solution 1 applic TOPICAL BID RF: 0 multivitamin Tablet 1 tab PO DAILY RF: 0 Discharge Orders: Discharge Order (Routine); Ordered 06/15/20 Ordered By: Justin Farr Admission Data Admit Date/Time: 06/14/20 02:37 Attending Provider: Sridhar Hernandez Admit Provider: Jonnie Hutchinson Primary Care Provider: Julian Lentz Other Providers: Jerrod Naylor Other Interventions: Discharge Summary Assessment (RN) Last Done: 06/15/20 12:07 Supervising Physician Co-Signing Physician Notes I personally examined the patient and verified all minaya points of history and exam, discussed case, and agree with decision making with Dr Farr. feeling better eating OK wants to go home vitals noted nad heent nc at mmm breathing unlabored no accessory muscles good effort skin no rashes no pallor or icterus, somewhat [place]. acute diverticulitis - improving. stable/safe for home. finish w PO abx anemia - outpt w/u and f/u otherwise as above Resident Activity Tracking Resident Involvement: Resident Care Provided Care Provided: Adult Hospital Medicine
--- NOTE | 2020-06-15 17:42 | Billing Data ---
Date of Service June 15, 2020 Coding Level of Care Code 97604 OBS Care - Discharge
== END 2020-06-15 13:15 | disposition home or self-care (01) ==
LOC: ED 22:33 → 3N 22:33 → SUATTDRO 06-14 02:37 → 3N 06-14 03:41

== ENCOUNTER 2021-09-14 14:12 | Inpatient (IN) ==
[2021-09-14 15:13] LABS: Influenza A virus by PCR Negative (Negative); Influenza B virus by PCR Negative (Negative)
--- NOTE | 2021-09-14 15:17 | XRay Report ---
XR chest 2V PA/lateral CLINICAL HISTORY: illness TECHNIQUE: AP and lateral frontal radiograph of the chest was obtained. Comparison: Comparison is made to CT chest 09/05/2020 FINDINGS: No lines and tubes are seen. Calcified aortic knob is seen. There is elevation of the right hemidiaph ragm with associated atelectasis. No evidence of pleural effusion or pneumothorax. IMPRESSION: No acute chest disease. ACT 112: Negative or not required by law. Electronically signed by: Yoni Rhoades M.D. 09/14/2021 3:16 PM
[2021-09-14 18:06] LABS: Basophils # (auto) 0.01 K/uL (0-0.2); Basophils % (auto) 0.1 %; Hematocrit (blood only) 28.4 % (37-47); Hemoglobin 9.9 g/dL (12.0-16.0); Immature Granulocytes # (auto) 0.04 K/uL (0.00-0.02); Immature Granulocytes % (auto) 0.3 %; Lymphocytes # (auto) 1.38 K/uL (1.2-3.4); Lymphocytes % (auto) 9.7 %; Mean Corpuscular Hemoglobin 30.9 pg (25-34); Mean Corpuscular Hgb Conc 34.9 g/dL (32-36); Mean Corpuscular Volume 88.8 fL (80-100); Mean Platelet Volume 9.3 fL (7.4-10.4); Monocytes # (auto) 1.28 K/uL (0.11-0.59); Neutrophils # (auto) 11.53 K/uL (1.4-6.5); Neutrophils % (auto) 80.9 %; Platelet Count 189 K/uL (130-400); RDW Coefficient of Variation 14.7 % (11.5-14.5); RDW Standard Deviation 47.5 fL (36.4-46.3); White Blood Count 14.24 K/uL (4.8-10.8)
[2021-09-14] MEDS ORDERED: SODIUM CHLORIDE 0.9% 1000ML 250 ML IV ONE (18:15)
[2021-09-14] MEDS ORDERED: ACETAMINOPHEN 325 MG TAB PO STA (18:15)
--- NOTE | 2021-09-14 18:17 | Emergency Department Note ---
History of Present Illness General Chief complaint: Illness Stated complaint: HEAD COLD, WEAKNESS Time Seen by Provider: 09/14/21 18:06 Source: patient History of Present Illness Provider complaint: Cold symptoms Onset (ago): week(s) Location: chest Severity: moderate Pain Consistency: + constant Quality: + other (Cough and runny nose) Relieved By: + none Associated symptoms: + cough, + fever/chills and + weakness; no chest pain, no headaches, no nausea/vomiting, no rash or no shortness of breath This is an 81-year-old female presents with cough and cold symptoms for about 8 days. She had a cough and did not feel well. She complains of myalgias and a runny nose. She also developed urinary frequency without burning. She had left-sided low back pain but that went away after a day. She denies any abdominal pain. She denies any fevers or vomiting but felt a little nauseous. She comes in today because she has significant weakness. She has no energy. She was unable to sleep last night and is extremely tired today. She is vaccinated for COVID-19. She has had a nonproductive cough and runny nose. She denies shortness of breath, chest pain, diarrhea, rash, headache or tick bite. Home Medications Medication Instructions Recorded Confirmed Type amlodipine 5 mg tablet 5 mg PO DAILY 06/13/20 09/14/21 History aspirin 81 mg tablet,delayed 81 mg PO DAILY 06/13/20 09/14/21 History release carvedilol 25 mg tablet 25 mg PO BID 06/13/20 09/14/21 History escitalopram oxalate 20 mg tablet 20 mg PO DAILY 06/13/20 09/14/21 History fenofibrate micronized 134 mg 134 mg PO DAILY 06/13/20 09/14/21 History capsule furosemide 20 mg tablet 20 mg PO DAILY 06/13/20 09/14/21 History hydralazine 50 mg tablet 50 mg PO TID 06/13/20 09/14/21 History ketoconazole 2 % shampoo 1 applic TOPICAL UD 06/13/20 09/14/21 History levothyroxine 175 mcg tablet 175 mcg PO DAILY 06/13/20 09/14/21 History lisinopril 20 mg tablet 20 mg PO BID 06/13/20 09/14/21 History multivitamin 1 tab PO DAILY 06/13/20 09/14/21 History phenytoin sodium extended 100 mg 300 mg PO AMHS 06/13/20 09/14/21 History capsule cyanocobalamin (vitamin B-12) 50 0 mcg PO DAILY 09/14/21 09/14/21 History mcg tablet Allergies Allergy/AdvReac Type Severity Reaction Status Date / Time No Known Allergies Allergy Unverified 09/14/21 20:09 Past Med/Surg History Medical History Dyslipidemia Fever Hypertension Hypothyroidism, postablative Leukocytosis Mitral valve regurgitation Productive cough Social History Smoking Status: Never smoker Second Hand Exposure: No; Hx Alcohol Use: No Hx Substance Use: No Preferred Language: Somali Communication Ability: Effective Copy Operator Required: No Beliefs That Will Affect Care: None marital status: / Current Living Situation: Alone Feels Safe at Home: Yes Assistive Devices: Walker Review of Systems See HPI for pertinent positives & negatives. and A total of 10 systems reviewed and were otherwise negative Physical Exam Vital Signs Vital Signs - 24 hr 09/14/21 14:38 09/14/21 18:13 09/14/21 20:00 Temperature 38.0 C H Temperature Source Oral Pulse Rate 92 H Pulse Rate [Apical] 105 H 85 Pulse Rhythm Regular Pulse Strength Normal Respiratory Rate 18 20 16 Respiratory Effort / Characteristics Non-Labored Spontaneous Non-Labored Spontaneous Non-Labored Respiratory Depth Normal Normal Normal Respiratory Pattern Regular Regular Blood Pressure 105/54 L Blood Pressure [Right Arm] 168/84 H 155/64 H Blood Pressure Mean 71 Blood Pressure Mean [Right Arm] 112 94 Pulse Oximetry 95 96 98 Oxygen Delivery Method Room Air Room Air Sepsis Recent Fever Within 48 Hours No Sepsis New/Unexplained Change in Mental Status No Sepsis Action Taken by Nursing No Action Required Constitutional: Vital signs reviewed. Eyes: Pupils are equal round reactive to light. Conjunctiva are noninjected. ENT: Pharynx is clear without erythema or exudate. Mucous membranes are dry. Neck supple without meningeal signs. Respiratory: Clear to auscultation bilaterally. Breath sounds are equal bilaterally. Cardiovascular: Mild tachycardia. Regular rhythm. Heart rate 107. GI: Soft, nondistended and nontender. Bowel sounds are present. Musculoskeletal: No peripheral edema. No lower extremity tenderness. No CVA tenderness. Integumentary: No cyanosis. or jaundice. Neurological: The patient is awake and alert. No focal deficits. Psychiatric: Normal affect. Not anxious appearing. Course Administered Medications Hydralazine HCl (Hydralazine Tab 50 Mg Tab) 50 mg PO TID ELISABETH Stop: 10/14/21 23:51 Last Admin: 09/15/21 00:58 Dose: 50 mg Documented by: [id number] Sodium Chloride (1/2 Nss) 1,000 mls @ 60 mls/hr IV .[id number] ELISABETH Stop: 10/14/21 22:48 Last Admin: 09/14/21 23:46 Dose: 60 mls/hr Documented by: [id number] Phenytoin Sodium (Phenytoin Sodium Er 100 Mg Cap) 300 mg PO AMHS ELISABETH Stop: 10/14/21 23:51 Last Admin: 09/15/21 00:58 Dose: 300 mg Documented by: [id number] Discontinued Medications Acetaminophen (Acetaminophen 325 Mg Tab) 650 mg PO NOW STA Stop: 09/14/21 18:16 Last Admin: 09/14/21 18:39 Dose: 650 mg Documented by: [id number] Carvedilol (Carvedilol 25 Mg Tab) 25 mg PO NOW STA Stop: 09/14/21 22:01 Last Admin: 09/14/21 22:42 Dose: 25 mg Documented by: [id number] Sodium Chloride (Nss 1000ml) 250 mls @ 999 mls/hr IV .Q16M ONE Stop: 09/14/21 18:30 Last Infusion: 09/14/21 19:18 Dose: 0 mls/hr Documented by: [id number] Admin: 09/14/21 18:39 Dose: 999 mls/hr Documented by: [id number] Sodium Chloride (Nss) 500 mls @ 100 mls/hr IV .Q5H ELISABETH Stop: 10/14/21 19:29 Last Infusion: 09/14/21 23:54 Dose: 0 mls/hr Documented by: [id number] Admin: 09/14/21 19:52 Dose: 100 mls/hr Documented by: [id number] Ceftriaxone Sodium (Rocephin) 2,000 mg in 70 mls @ 140 mls/hr IV NOW STA Stop: 09/14/21 21:41 Last Infusion: 09/14/21 23:12 Dose: 0 mls/hr Documented by: [id number] Admin: 09/14/21 22:42 Dose: 140 mls/hr Documented by: [id number] Cefepime HCl (Maxipime) 2,000 mg in 20 mls @ 5 mls/min IV NOW STA; Protocol Stop: 09/14/21 22:05 Last Admin: 09/14/21 22:18 Dose: 5 mls/min Documented by: [id number] Sodium Chloride (1/2 Nss) 1,000 mls @ 60 mls/hr IV .[id number] ONE Stop: 09/15/21 15:27 Last Admin: 09/14/21 23:45 Dose: Not Given Documented by: [id number] Piperacillin Sod/Tazobactam (Sod 4.5 gm/ Dextrose) 120 mls @ 240 mls/hr IV ONE ONE; Protocol Stop: 09/15/21 00:44 Last Infusion: 09/15/21 01:31 Dose: 0 mls/hr Documented by: [id number] Admin: 09/15/21 00:58 Dose: 240 mls/hr Documented by: [id number] Medical Decision Making Differential Diagnosis Sepsis, bacteremia, UTI, pyelonephritis, pneumonia, COVID-19, influenza, dehydration Medical Records Attestation: I reviewed the patient's medical records. I did perform a limited focused review of portions of the patient's old chart o n the electronic medical record. The patient has had no recent pertinent visits to this hospital. Home Medications Current Medication List: was personally reviewed by me Laboratory Data Attestation: I reviewed the patient's lab results. Result diagrams: 09/14/21 17:54 09/14/21 17:54 Lab Results 09/14/21 09/14/21 09/14/21 Range/Units 14:41 14:41 17:54 WBC 14.24 H (4.8-10.8) K/uL RBC 3.20 L (4.2-5.4) M/uL Hgb 9.9 L (12.0-16.0) g/dL Hct 28.4 L (37-47) % MCV 88.8 (80-100) fL MCH 30.9 (25-34) pg MCHC 34.9 (32-36) g/dL RDW Std Deviation 47.5 H (36.4-46.3) fL RDW Coeff of Gee 14.7 H (11.5-14.5) % Plt Count 189 (130-400) K/uL MPV 9.3 (7.4-10.4) fL Immature Gran % (Auto) 0.3 % Neut % (Auto) 80.9 % Lymph % (Auto) 9.7 % [place] % (Auto) 9.0 % Eos % (Auto) 0.0 % Baso % (Auto) 0.1 % Neut # (Auto) 11.53 H (1.4-6.5) K/uL Lymph # (Auto) 1.38 (1.2-3.4) K/uL [place] # (Auto) 1.28 H (0.11-0.59) K/uL Eos # (Auto) 0.00 (0-0.5) K/uL Baso # (Auto) 0.01 (0-0.2) K/uL Immature Gran # (Auto) 0.04 H (0.00-0.02) K/uL Sodium (136-145) mmol/L Potassium (3.5-5.1) mmol/L Chloride (98-107) mmol/L Carbon Dioxide (21-32) mmol/L Anion Gap (3-11) BUN (7-18) mg/dl Creatinine (0.6-1.2) mg/dl Est Cr Clr Drug Dosing Est GFR ( Amer) ml/min Est GFR (Non-Af Amer) ml/min BUN/Creatinine Ratio (10-20) Glucose (70-99) mg/dl Lactate (0.4-2.0) mmol/L Calcium (8.5-10.1) mg/dl Magnesium (1.8-2.4) mg/dl Total Bilirubin (0.2-1) mg/dl AST (15-37) U/L ALT (12-78) U/L Alkaline Phosphatase (45-117) U/L Troponin I (0-0.045) ng/ml Total Protein (6.4-8.2) gm/dl Albumin (3.4-5.0) gm/dl Globulin (2.5-4.0) gm/dl Albumin/Globulin Ratio (0.9-2) Lipase (73-393) U/L TSH (0.300-4.500) uIu/ml Urine Color Urine Appearance (Clear) Urine pH (4.5-7.5) Ur Specific [place] (1.000-1.030) Urine Protein (Negative) Urine Glucose (UA) (Negative) Urine Ketones (Negative) Urine Blood (Negative) Urine Nitrite (Negative) Urine Bilirubin (Negative) Urine Urobilinogen (Negative) Ur Leukocyte Esterase (Negative) Urine WBC (Auto) (0-5) /hpf Urine RBC (Auto) (0-4) /hpf U Hyaline Cast (Auto) (0-5) /lpf U Epithel Cells (Auto) (0-5) /lpf Urine Bacteria (Auto) (Negative) Granular Casts (0) /lpf Urine Mucus (None Prsent) SARS-CoV-2 (PCR) NEGATIVE (Negative) Influ A Molecular Assay Negative (Negative) Influ B Molecular Assay Negative (Negative) 09/14/21 09/14/21 09/14/21 Range/Units 17:54 18:37 18:37 WBC (4.8-10.8) K/uL RBC (4.2-5.4) M/uL Hgb (12.0-16.0) g/dL Hct (37-47) % MCV (80-100) fL MCH (25-34) pg MCHC (32-36) g/dL RDW Std Deviation (36.4-46.3) fL RDW Coeff of Gee (11.5-14.5) % Plt Count (130-400) K/uL MPV (7.4-10.4) fL Immature Gran % (Auto) % Neut % (Auto) % Lymph % (Auto) % [place] % (Auto) % Eos % (Auto) % Baso % (Auto) % Neut # (Auto) (1.4-6.5) K/uL Lymph # (Auto) (1.2-3.4) K/uL [place] # (Auto) (0.11-0.59) K/uL Eos # (Auto) (0-0.5) K/uL Baso # (Auto) (0-0.2) K/uL Immature Gran # (Auto) (0.00-0.02) K/uL Sodium 141 (136-145) mmol/L Potassium 4.3 (3.5-5.1) mmol/L Chloride 109 H (98-107) mmol/L Carbon Dioxide 23 (21-32) mmol/L Anion Gap 8.0 (3-11) BUN 22 H (7-18) mg/dl Creatinine 1.29 H (0.6-1.2) mg/dl Est Cr Clr Drug Dosing Not Reportable Est GFR ( Amer) 44.3 ml/min Est GFR (Non-Af Amer) 38.3 ml/min BUN/Creatinine Ratio 16.8 (10-20) Glucose 122 H (70-99) mg/dl Lactate 0.3 L (0.4-2.0) mmol/L Calcium 9.0 (8.5-10.1) mg/dl Magnesium 1.8 (1.8-2.4) mg/dl Total Bilirubin 0.6 (0.2-1) mg/dl AST 15 (15-37) U/L ALT 23 (12-78) U/L Alkaline Phosphatase 52 (45-117) U/L Troponin I < 0.015 (0-0.045) ng/ml Total Protein 7.3 (6.4-8.2) gm/dl Albumin 3.3 L (3.4-5.0) gm/dl Globulin 4.0 (2.5-4.0) gm/dl Albumin/Globulin Ratio 0.8 L (0.9-2) Lipase 103 (73-393) U/L TSH 1.100 (0.300-4.500) uIu/ml Urine Color Urine Appearance (Clear) Urine pH (4.5-7.5) Ur Specific [place] (1.000-1.030) Urine Protein (Negative) Urine Glucose (UA) (Negative) Urine Ketones (Negative) Urine Blood (Negative) Urine Nitrite (Negative) Urine Bilirubin (Negative) Urine Urobilinogen (Negative) Ur Leukocyte Esterase (Negative) Urine WBC (Auto) (0-5) /hpf Urine RBC (Auto) (0-4) /hpf U Hyaline Cast (Auto) (0-5) /lpf U Epithel Cells (Auto) (0-5) /lpf Urine Bacteria (Auto) (Negative) Granular Casts (0) /lpf Urine Mucus (None Prsent) SARS-CoV-2 (PCR) (Negative) Influ A Molecular Assay (Negative) Influ B Molecular Assay (Negative) 09/14/21 09/14/21 Range/Units 18:37 19:40 WBC (4.8-10.8) K/uL RBC (4.2-5.4) M/uL Hgb (12.0-16.0) g/dL Hct (37-47) % MCV (80-100) fL MCH (25-34) pg MCHC (32-36) g/dL RDW Std Deviation (36.4-46.3) fL RDW Coeff of Gee (11.5-14.5) % Plt Count (130-400) K/uL MPV (7.4-10.4) fL Immature Gran % (Auto) % Neut % (Auto) % Lymph % (Auto) % [place] % (Auto) % Eos % (Auto) % Baso % (Auto) % Neut # (Auto) (1.4-6.5) K/uL Lymph # (Auto) (1.2-3.4) K/uL [place] # (Auto) (0.11-0.59) K/uL Eos # (Auto) (0-0.5) K/uL Baso # (Auto) (0-0.2) K/uL Immature Gran # (Auto) (0.00-0.02) K/uL Sodium (136-145) mmol/L Potassium (3.5-5.1) mmol/L Chloride (98-107) mmol/L Carbon Dioxide (21-32) mmol/L Anion Gap (3-11) BUN (7-18) mg/dl Creatinine (0.6-1.2) mg/dl Est Cr Clr Drug Dosing Est GFR ( Amer) ml/min Est GFR (Non-Af Amer) ml/min BUN/Creatinine Ratio (10-20) Glucose (70-99) mg/dl Lactate (0.4-2.0) mmol/L Calcium (8.5-10.1) mg/dl Magnesium (1.8-2.4) mg/dl Total Bilirubin (0.2-1) mg/dl AST (15-37) U/L ALT (12-78) U/L Alkaline Phosphatase (45-117) U/L Troponin I (0-0.045) ng/ml Total Protein (6.4-8.2) gm/dl Albumin (3.4-5.0) gm/dl Globulin (2.5-4.0) gm/dl Albumin/Globulin Ratio (0.9-2) Lipase Cancelled (73-393) U/L TSH (0.300-4.500) uIu/ml Urine Color Dark Yellow Urine Appearance Clear (Clear) Urine pH 5.0 (4.5-7.5) Ur Specific [place] 1.026 (1.000-1.030) Urine Protein 2+ H (Negative) Urine Glucose (UA) Negative (Negative) Urine Ketones Trace H (Negative) Urine Blood Negative (Negative) Urine Nitrite Positive A (Negative) Urine Bilirubin 1+ H (Negative) Urine Urobilinogen Negative (Negative) Ur Leukocyte Esterase Trace H (Negative) Urine WBC (Auto) 1-5 (0-5) /hpf Urine RBC (Auto) 5-10 H (0-4) /hpf U Hyaline Cast (Auto) 1-5 (0-5) /lpf U Epithel Cells (Auto) >30 H (0-5) /lpf Urine Bacteria (Auto) Negative (Negative) Granular Casts 1-5 H (0) /lpf Urine Mucus Present A (None Prsent) SARS-CoV-2 (PCR) (Negative) Influ A Molecular Assay (Negative) Influ B Molecular Assay (Negative) Imaging Data Radiologist's Impression: Chest X-Ray 09/14/21 14:43 XR chest 2V PA/lateral CLINICAL HISTORY: illness TECHNIQUE: AP and lateral frontal radiograph of the chest was obtained. Comparison: Comparison is made to CT chest 09/05/2020 FINDINGS: No lines and tubes are seen. Calcified aortic knob is seen. There is elevation of the right hemidiaphragm with associated atelectasis. No evidence of pleural effusion or pneumothorax. IMPRESSION: No acute chest disease. ACT 112: Negative or not required by law. Electronically signed by: Yoni Rhoades M.D. 09/14/2021 3:16 PM Abdomen/Pelvis CT 09/14/21 21:[address] WITHOUT CONTRAST CT DOSE: 345.53 mGy.cm HISTORY: Acute bilateral flank pain flank pain TECHNIQUE: Multiaxial CT images of the abdomen and pelvis were performed without contrast. A dose lowering technique was utilized adhering to the principles of ALARA. COMPARISON STUDY: CT abdomen and pelvis 06/14/2020 FINDINGS: Moderate cardiomegaly. Aortic and mitral annular calcifications with coronary artery calcifications. Mild linear subsegmental bibasilar atelectasis with right hemidiaphragmatic elevation. No pneumatosis or pneumoperitoneum. Mild hepatic steatosis. There are 2 indeterminate hypodense foci of the left hepatic lobe measuring up to 10 mm which are unchanged and favored to be benign. Mild splenomegaly, 13.6 cm. Distended sludge-filled gallbladder with a gallstone within the gallbladder neck. There is equivocal wall thickening with trace pericholecystic edema. No definite biliary ductal dilation. The pancreas and adrenal glands are unremarkable. Mild nonspecific bilateral perinephric stranding. Small cysts of the right kidney are again noted measuring up to 1.8 cm. No hydronephrosis or urolith. Partial distention of the urinary bladder. Unremarkable uterus. Atherosclerotic plaque of the aorta and branch vessels. No adenopathy. No bowel obstruction. Colonic diverticulosis without acute diverticulitis. No definite bowel wall thickening. The appendix is not definitively seen. No secondary signs of acute appendicitis. Unremarkable soft tissues. Degenerative changes of the spine, pelvis and hips. Lumbar levoscoliosis. No acute fracture. IMPRESSION: 1. Distended sludge-filled gallbladder with cholelithiasis, wall thickening and trace pericholecystic edema is suspicious for acute cholecystitis. 2. No renal or ureteral calculi or hydronephrosis 3. No bowel obstruction or bowel wall thickening. 4. Colonic diverticulosis. 5. Additional findings as above. ACT 112: Negative or not required by law. The above report was generated using voice recognition software. It may contain grammatical, syntax or spelling errors. Electronically signed by: Curt Hebert M.D. 09/14/2021 10:28 PM ECG Data Attestation: I personally reviewed and interpreted this ECG as follows: Indication: + weakness Rate (beats per minute): 97 Rhythm: + normal sinus ECG [place]: + Normal ECG ST segments: no ST elevation ECG Findings: no PVCs MDM Narrative I did evaluate the patient as noted above. She is presenting with urinary frequency and cold symptoms for over a week. Today she feels very weak and tired. IV access was established. I did treat her with Tylenol p.o. and normal saline IV. I did place an order for continuous cardiac monitoring. The monitor showed normal sinus rhythm at a rate of 99 bpm. I did order and personally review the patient's 12-lead EKG as described above. She has no acute ischemic changes. I did order and personally reviewed the images of the patient's chest x-ray as described above. There is no evidence of pneumonia. I did order and review the patient's blood work as noted in the electronic medical record. Her white blood cell count is elevated at 14.24. She has chronic stable anemia with a hemoglobin 9.9. Platelets are 189. Electrolytes are unremarkable other than a chloride of 109. Creatinine is slightly elevated at 1.29 with a BUN of 22. Her last creatinine was 1.38 in August of last year. Lactate is not elevated. Troponin and TSH are within normal limits. Covid 19 testing is negative. Rapid flu testing is negative. I went to reassess the patient. She is feeling better. She tried to give us urine sample but missed the hat. She will be continued on normal saline maintenance fluids until we can get a sample. Her tachycardia has resolved. We were able to get a catheterized urine sample. She does have a UTI. I am concerned about early sepsis. I did recommend hospitalization. I did discuss the case with the hospitalist and shelter case manager. She was treated with Rocephin 2 g IV. The hospitalist evaluated patient and ordered a CT of the abdomen pelvis. Apparently this is concerning for acute cholecystitis. Surgery was consulted. I did not detect any significant pain or tenderness on examination of the abdomen. Impression & Plan Acute cholecystitis, Acute UTI, Chronic anemia Discharge Plan Visit Data Chief Complaint: Illness Stated Complaint: HEAD COLD, WEAKNESS ED Provider: Julio Bceerra Discharge Problem: Acute cholecystitis, Acute UTI, Chronic anemia Patient Disposition: Admitted As Inpatient Discharge Instructions Interventions: ED Discharge Assessment Last Done: 09/14/21 23:52
[2021-09-14 18:25] LABS: Alanine Aminotransferase 23 U/L (12-78); Albumin Level 3.3 gm/dl (3.4-5.0); Aspartate Aminotransferase 15 U/L (15-37); BUN Creatinine Ratio 16.8 (10-20); Blood Urea Nitrogen 22 mg/dl (7-18); Carbon Dioxide 23 mmol/L (21-32); Chloride 109 mmol/L (98-107); Est GFR (African American) 44.3 ml/min; Est GFR (Non-African American) 38.3 ml/min; Glucose 122 mg/dl (70-99); Potassium 4.3 mmol/L (3.5-5.1); Sodium 141 mmol/L (136-145)
[2021-09-14 18:27] LABS: Albumin Globulin Ratio 0.8 (0.9-2); Alkaline Phosphatase 52 U/L (45-117); Bilirubin,Total 0.6 mg/dl (0.2-1); Total Protein 7.3 gm/dl (6.4-8.2)
--- NOTE | 2021-09-14 18:50 | Electrocardiogram Report ---
Test Reason : Blood Pressure : / mmHG Vent. Rate : 097 BPM Atrial Rate : 097 BPM P-R Int : 166 ms QRS Dur : 102 ms QT Int : 378 ms P-R-T Axes : 030 -14 035 degrees QTc Int : 480 ms Poor data quality, interpretation may be adversely affected Normal sinus rhythm Normal ECG When compared with ECG of 05-SEP-2020 15:39, No significant change was found Confirmed by Dandy Arora ([id number]) on 09/14/2021 6:50:07 PM Referred By: Confirmed By:Dandy Arora
[2021-09-14 19:16] LABS: Troponin I < 0.015 ng/ml (0-0.045)
[2021-09-14] MEDS ORDERED: SODIUM CHLORIDE 0.9% 500 ML IV SCH (19:30)
[2021-09-14 20:39] LABS: Appearance Urine Clear (Clear); Bacteria Urine Automated Negative (Negative); Blood Urine Negative (Negative); Color Urine Dark Yellow; Epithelial Cell Urine Auto >30 /lpf (0-5); Glucose Urine UA Negative (Negative); Ketones Urine Trace (Negative); Leukocyte Esterase Urine Trace (Negative); Nitrite Urine Positive (Negative); Protein Urine 2+ (Negative); Specific Gravity Urine 1.026 (1.000-1.030); Urobilinogen Urine Negative (Negative)
[2021-09-14 20:56] LABS: Bilirubin Urine 1+ (Negative)
[2021-09-14] MEDS ORDERED: cefTRIAXone SODIUM 2,000 MG/70 ML BAG IV STA (21:12)
[2021-09-14 21:41] LABS: Mucus Urine Present (None Prsent)
[2021-09-14 21:46] LABS: Magnesium 1.8 mg/dl (1.8-2.4)
--- NOTE | 2021-09-14 21:46 | History & Physical Report ---
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 until patient seen by surgery in anticipation of procedure Gentle IV hydration while patient n.p.o. Analgesia, facilitate home BP meds hold home JULIO C inhibitor, diuretic while patient n.p.o. Check hemoglobin A1c DVT prophylaxis. SCDs Re: Possible surgery Recommend pharmacologic anticoagulation with heparin 5000 units subcutaneous every 8 hours once bleeding risk is deemed to be minimal and negligible pending Surgery evaluation. Full code Patient son requesting updates for providers. Mr. Elijah Watson, contact #[phone]. Text document was generated using [employer] voice recognition software. It may contain grammatical or spelling errors. Kindly contact undersigned for clarification of any documentation item in question. History of Present Illness Chief Complaint: Chills, weakness, nausea, urinary frequency, flank pain Primary Care Provider: Julian Lentz MD History obtained from patient, family, and records. 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 Last confinement May 2020 for acute diverticulitis. Patient not feeling well for about a week. Flulike symptoms with myalgias and runny nose. Patient later noted urinary frequency with flank pain. No actual abdominal pain. Some nausea. No emesis. Patient denies chest pain, S OB. At the ER, patient given Ceftriaxone for sepsis. Medical History as above Surgical History : BTL, subcutaneous tumor removal, thyroidectomy Family History : Colon cancer, Parkinson's disease, DM Personal/Social history : Non-smoker, no EtOH intake, retired factory employee Allergies Allergy/AdvReac Type Severity Reaction Status Date / Time No Known Allergies Allergy Unverified 09/14/21 20:09 Home Medications Medication Instructions Recorded Confirmed Type amlodipine 5 mg tablet 5 mg PO DAILY 06/13/20 09/14/21 History aspirin 81 mg tablet,delayed 81 mg PO DAILY 06/13/20 09/14/21 History release carvedilol 25 mg tablet 25 mg PO BID 06/13/20 09/14/21 History escitalopram oxalate 20 mg tablet 20 mg PO DAILY 06/13/20 09/14/21 History fenofibrate micronized 134 mg 134 mg PO DAILY 06/13/20 09/14/21 History capsule furosemide 20 mg tablet 20 mg PO DAILY 06/13/20 09/14/21 History hydralazine 50 mg tablet 50 mg PO TID 06/13/20 09/14/21 History ketoconazole 2 % shampoo 1 applic TOPICAL UD 06/13/20 09/14/21 History levothyroxine 175 mcg tablet 175 mcg PO DAILY 06/13/20 09/14/21 History lisinopril 20 mg tablet 20 mg PO BID 06/13/20 09/14/21 History multivitamin 1 tab PO DAILY 06/13/20 09/14/21 History phenytoin sodium extended 100 mg 300 mg PO AMHS 06/13/20 09/14/21 History capsule cyanocobalamin (vitamin B-12) 50 0 mcg PO DAILY 09/14/21 09/14/21 History mcg tablet Past Med/Surg History Medical History Dyslipidemia Fever Hypertension Hypothyroidism, postablative Leukocytosis Mitral valve regurgitation Productive cough Social History Smoking Status: Never smoker Second Hand Exposure: No; Hx Alcohol Use: No Hx Substance Use: No Preferred Language: Romansh Communication Ability: Effective Highballer Required: No Beliefs That Will Affect Care: None marital status: / Current Living Situation: Alone Other Information That Helps Us Care for You: No Feels Safe at Home: Yes Assistive Devices: Walker Review of Systems Review of Systems: As per HPI, all 10 systems reviewed, all other ROS negative Physical Exam Physical Exam: GENERAL: Slightly uncomfortable, pleasant, slightly hard of hearing, obese, lo oks younger than stated age, no respiratory distress SKIN: Pallor , warm HEENT: Pale palpebral conjunctivae, no ptosis, dry buccal mucosa NECK : Supple, no tenderness CHEST : CTA, no tenderness HEART : RRR, systolic murmur best heard over second right intercostal space ABDOMEN: Some distention, right upper quadrant tenderness EXTREMITIES : Minimal LE swelling, no LE tenderness, no other conspicuous deformities noted NEUROLOGIC : Coherent, no facial asymmetry, mild hearing impairment, no other gross focality Results & Data Results & Data ([facility]) Vital Signs (Past 12 Hours) Vital Signs Temp Pulse Pulse Resp BP BP Pulse Ox 09/14/21 20:00 85 16 155/64 H 98 09/14/21 18:13 105 H 20 168/84 H 96 09/14/21 14:38 38.0 C H 92 H 18 105/54 L 95 Laboratory Results Laboratory Results WBC 14.24 K/uL (4.8-10.8) H 09/14/21 17:54 RBC 3.20 M/uL (4.2-5.4) L 09/14/21 17:54 Hgb 9.9 g/dL (12.0-16.0) L 09/14/21 17:54 Hct 28.4 % (37-47) L 09/14/21 17:54 MCV 88.8 fL (80-100) 09/14/21 17:54 MCH 30.9 pg (25-34) 09/14/21 17:54 MCHC 34.9 g/dL (32-36) 09/14/21 17:54 RDW Std Deviation 47.5 fL (36.4-46.3) H 09/14/21 17:54 RDW Coeff of Gee 14.7 % (11.5-14.5) H 09/14/21 17:54 Plt Count 189 K/uL (130-400) 09/14/21 17:54 MPV 9.3 fL (7.4-10.4) 09/14/21 17:54 Immature Gran % (Auto) 0.3 % 09/14/21 17:54 Neut % (Auto) 80.9 % 09/14/21 17:54 Lymph % (Auto) 9.7 % 09/14/21 17:54 [place] % (Auto) 9.0 % 09/14/21 17:54 Eos % (Auto) 0.0 % 09/14/21 17:54 Baso % (Auto) 0.1 % 09/14/21 17:54 Neut # (Auto) 11.53 K/uL (1.4-6.5) H 09/14/21 17:54 Lymph # (Auto) 1.38 K/uL (1.2-3.4) 09/14/21 17:54 [place] # (Auto) 1.28 K/uL (0.11-0.59) H 09/14/21 17:54 Eos # (Auto) 0.00 K/uL (0-0.5) 09/14/21 17:54 Baso # (Auto) 0.01 K/uL (0-0.2) 09/14/21 17:54 Immature Gran # (Auto) 0.04 K/uL (0.00-0.02) H 09/14/21 17:54 Sodium 141 mmol/L (136-145) 09/14/21 17:54 Potassium 4.3 mmol/L (3.5-5.1) 09/14/21 17:54 Chloride 109 mmol/L (98-107) H 09/14/21 17:54 Carbon Dioxide 23 mmol/L (21-32) 09/14/21 17:54 Anion Gap 8.0 (3-11) 09/14/21 17:54 BUN 22 mg/dl (7-18) H 09/14/21 17:54 Creatinine 1.29 mg/dl (0.6-1.2) H 09/14/21 17:54 Est Cr Clr Drug Dosing Not Reportable 09/14/21 17:54 Est GFR ( Amer) 44.3 ml/min 09/14/21 17:54 Est GFR (Non-Af Amer) 38.3 ml/min 09/14/21 17:54 BUN/Creatinine Ratio 16.8 (10-20) 09/14/21 17:54 Glucose 122 mg/dl (70-99) H 09/14/21 17:54 Lactate 0.3 mmol/L (0.4-2.0) L 09/14/21 18:37 Calcium 9.0 mg/dl (8.5-10.1) 09/14/21 17:54 Magnesium 1.8 mg/dl (1.8-2.4) 09/14/21 18:37 Total Bilirubin 0.6 mg/dl (0.2-1) 09/14/21 17:54 AST 15 U/L (15-37) 09/14/21 17:54 ALT 23 U/L (12-78) 09/14/21 17:54 Alkaline Phosphatase 52 U/L (45-117) 09/14/21 17:54 Troponin I < 0.015 ng/ml (0-0.045) 09/14/21 18:37 Total Protein 7.3 gm/dl (6.4-8.2) 09/14/21 17:54 Albumin 3.3 gm/dl (3.4-5.0) L 09/14/21 17:54 Globulin 4.0 gm/dl (2.5-4.0) 09/14/21 17:54 Albumin/Globulin Ratio 0.8 (0.9-2) L 09/14/21 17:54 TSH 1.100 uIu/ml (0.300-4.500) 09/14/21 18:37 Urine Color Dark Yellow 09/14/21 19:40 Urine Appearance Clear (Clear) 09/14/21 19:40 Urine pH 5.0 (4.5-7.5) 09/14/21 19:40 Ur Specific [place] 1.026 (1.000-1.030) 09/14/21 19:40 Urine Protein 2+ (Negative) H 09/14/21 19:40 Urine Glucose (UA) Negative (Negative) 09/14/21 19:40 Urine Ketones Trace (Negative) H 09/14/21 19:40 Urine Blood Negative (Negative) 09/14/21 19:40 Urine Nitrite Positive (Negative) A 09/14/21 19:40 Urine Bilirubin 1+ (Negative) H 09/14/21 19:40 Urine Urobilinogen Negative (Negative) 09/14/21 19:40 Ur Leukocyte Esterase Trace (Negative) H 09/14/21 19:40 Urine WBC (Auto) 1-5 /hpf (0-5) 09/14/21 19:40 Urine RBC (Auto) 5-10 /hpf (0-4) H 09/14/21 19:40 U Hyaline Cast (Auto) 1-5 /lpf (0-5) 09/14/21 19:40 U Epithel Cells (Auto) >30 /lpf (0-5) H 09/14/21 19:40 Urine Bacteria (Auto) Negative (Negative) 09/14/21 19:40 Granular Casts 1-5 /lpf (0) H 09/14/21 19:40 Urine Mucus Present (None Prsent) A 09/14/21 19:40 SARS-CoV-2 (PCR) NEGATIVE (Negative) 09/14/21 14:41 Influ A Molecular Assay Negative (Negative) 09/14/21 14:41 Influ B Molecular Assay Negative (Negative) 09/14/21 14:41 Impressions Chest X-Ray 09/14/21 14:43 XR chest 2V PA/lateral CLINICAL HISTORY: illness TECHNIQUE: AP and lateral frontal radiograph of the chest was obtained. Comparison: Comparison is made to CT chest 09/05/2020 FINDINGS: No lines and tubes are seen. Calcified aortic knob is seen. There is elevation of the right hemidiaphragm with associated atelectasis. No evidence of pleural effusion or pneumothorax. IMPRESSION: No acute chest disease. ACT 112: Negative or not required by law. Electronically signed by: Yoni Rhoades M.D. 09/14/2021 3:[address] abdomen pelvis: 1. Distended sludge-filled gallbladder with cholelithiasis, wall thickening and trace pericholecystic edema is suspicious for acute cholecystitis. 2. No renal or ureteral calculi or hydronephrosis 3. No bowel obstruction or bowel wall thickening. 4. Colonic diverticulosis. Diagnostic Findings EKG as per my interpretation:Rate 95, NSR, normal axis, LVH, T wave abnormality septal leads
[2021-09-14] MEDS ORDERED: carvediloL 25 MG TAB PO STA (22:00)
[2021-09-14] MEDS ORDERED: CEFEPIME 2,000 MG/20 ML VIAL IV STA (22:02)
--- NOTE | 2021-09-14 22:30 | CT Scan Report ---
ABDOMEN AND PELVIS CT WITHOUT CONTRAST CT DOSE: 345.53 mGy.cm HISTORY: Acute bilateral flank pain flank pain TECHNIQUE: Multiaxial CT images of the abdomen and pelvis were performed without contrast. A dose lo wering technique was utilized adhering to the principles of ALARA. COMPARISON STUDY: CT abdomen and pelvis 06/14/2020 FINDINGS: Moderate cardiomegaly. Aortic and mitral annular calcifications with coronary artery calcif ications. Mild linear subsegmental bibasilar atelectasis with right hemidiaphragmatic elevation. No p neumatosis or pneumoperitoneum. Mild hepatic steatosis. There are 2 indeterminate hypodense foci of t he left hepatic lobe measuring up to 10 mm which are unchanged and favored to be benign. Mild splenom egaly, 13.6 cm. Distended sludge-filled gallbladder with a gallstone within the gallbladder neck. The re is equivocal wall thickening with trace pericholecystic edema. No definite biliary ductal dilation . The pancreas and adrenal glands are unremarkable. Mild nonspecific bilateral perinephric stranding. Small cysts of the right kidney are again noted kirstin suring up to 1.8 cm. No hydronephrosis or urolith. Partial distention of the urinary bladder. Unremar kable uterus. Atherosclerotic plaque of the aorta and branch vessels. No adenopathy. No bowel obstruc tion. Colonic diverticulosis without acute diverticulitis. No definite bowel wall thickening. The sarah endix is not definitively seen. No secondary signs of acute appendicitis. Unremarkable soft tissues. Degenerative changes of the spine, pelvis and hips. Lumbar levoscoliosis. No acute fracture. IMPRESSION: 1. Distended sludge-filled gallbladder with cholelithiasis, wall thickening and trace pericholecystic edema is suspicious for acute cholecystitis. 2. No renal or ureteral calculi or hydronephrosis 3. No bowel obstruction or bowel wall thickening. 4. Colonic diverticulosis. 5. Additional findings as above. ACT 112: Negative or not required by law. The above report was generated using voice recognition software. It may contain grammatical, syntax o r spelling errors. Electronically signed by: Curt Hebert M.D. 09/14/2021 10:28 PM
[2021-09-14] MEDS ORDERED: SODIUM CHLORIDE 0.45 % 1,000 ML IV ONE (22:48)
[2021-09-14] MEDS ORDERED: SODIUM CHLORIDE 0.45 % 1,000 ML IV SCH (22:49)
[2021-09-14 23:20] LABS: Lipase 103 U/L (73-393)
[2021-09-14] MEDS ORDERED: ACETAMINOPHEN 325 MG TAB PO PRN (23:52)
[2021-09-14] MEDS ORDERED: PROMETHAZINE HCL 12.5 MG in SODIUM CHLORIDE 0.9% 50 ML IV PRN (23:52)
[2021-09-14] MEDS ORDERED: PIPERACILL/TAZOBAC CONSULT ACTIVE PRN (23:52)
[2021-09-14] MEDS ORDERED: oxyCODONE HCL IR 5 MG TAB (IMMEDIATE RELEASE) PO PRN (23:52)
--- NOTE | 2021-09-14 23:58 | Surgery Consultation ---
Date of Consultation September 14, 2021 Assessment & Plan (1) Cholecystitis: Patient has been admitted on the medical service. We recommend proceeding as follows: Maintain n.p.o. status Provide analgesics Provide antiemetics Provide IV fluid for hydration Continue antibiotics. In the emergency department the patient has received cefepime and Rocephin, however the admitting service has switched this to Zosyn which should continue. A Covid test has been performed which is noted to be negative Due to the patient's abdominal pain she may benefit from a cholecystectomy. We will therefore admit the plan as noted above. The patient be evaluated by Dr. Bailey to determine timing of any surgical intervention. We will continue following while patient is hospitalized Supervising Physician Co-Signing Physician Notes Dr. Bailey-agree with evaluation by Jamil Dent Patient presenting to the emergency room with acute cholecystitis and what appears to be a stone in the neck of the gallbladder with severe distention For laparoscopic cholecystectomy hopefully within the next 24 hours History of Present Illness Reason for Consultation: Cholecystitis Attending Physician: Julio Sood MD History of Present Illness This is an 81-year-old female who presented to [facility] secondary to "not feeling well" for approximately 1 week. When I questioned the patient further in this she said that she felt she had a bad cold, with extreme fatigue, back pain, and generally feeling ill. I asked the patient if she had any abdominal pain or nausea vomiting which she denied. Because of her symptoms she presented to the emergency department. While in the emergency department the patient noted some right upper quadrant abdominal pain particularly with palpation of her abdomen. She denied any radiation of the pain. She also denied any modifying factors concerning the pain. She notes she has never had any prior abdominal surgery. She has not had any nausea or vomiting. She denies any fevers, shakes, chills. She does report that over the past several weeks she would get intermittent nausea shortly after eating a meal, however this usually subsides on its own without any further sequelae. In the emergency department the patient had labs and imaging which I independently reviewed. CBC revealed white blood cell count was 14.2. Her hemoglobin and hematocrit were 9.9 and 20.4 respectively. Her platelet count was noted to be within normal range. Chemistry profile showed sodium and potassium were both within normal range. BUN and creatinine both had slight elevations of 22 and 1.29. Patient's magnesium was noted to be normal. There were no elevation of the patient's bilirubin, transaminases, alkaline phosphatase, or lipase. A urinalysis was positive for nitrite and trace leukocyte esterase. There is no bacteria noted in the urinalysis was otherwise not indicative of infection. A Covid test was performed and was noted to be negative. A chest x-ray showed no evidence of pneumonia or CHF. Patient did have a CT scan of her abdomen that showed a distended and sludge-filled gallbladder concerning for cholecystitis. There was gallbladder wall thickening along with trace pericholecystic fluid. An EKG showed normal sinus rhythm. There are no changes indicative of ischemia. Patient notes that she tries to lead an active lifestyle. She says she lives with her son at home and she is able to ambulate throughout her house. With her activities of daily living she does not get any chest pain or shortness of breath At the time of my interview the patient was resting comfortably in bed in no distress. Allergies Allergy/AdvReac Type Severity Reaction Status Date / Time No Known Allergies Allergy Unverified 09/14/21 20:09 Home Medications Medication Instructions Recorded Confirmed Type amlodipine 5 mg tablet 5 mg PO DAILY 06/13/20 09/14/21 History aspirin 81 mg tablet,delayed 81 mg PO DAILY 06/13/20 09/14/21 History release carvedilol 25 mg tablet 25 mg PO BID 06/13/20 09/14/21 History escitalopram oxalate 20 mg tablet 20 mg PO DAILY 06/13/20 09/14/21 History fenofibrate micronized 134 mg 134 mg PO DAILY 06/13/20 09/14/21 History capsule furosemide 20 mg tablet 20 mg PO DAILY 06/13/20 09/14/21 History hydralazine 50 mg tablet 50 mg PO TID 06/13/20 09/14/21 History ketoconazole 2 % shampoo 1 applic TOPICAL UD 06/13/20 09/14/21 History levothyroxine 175 mcg tablet 175 mcg PO DAILY 06/13/20 09/14/21 History lisinopril 20 mg tablet 20 mg PO BID 06/13/20 09/14/21 History multivitamin 1 tab PO DAILY 06/13/20 09/14/21 History phenytoin sodium extended 100 mg 300 mg PO AMHS 06/13/20 09/14/21 History capsule cyanocobalamin (vitamin B-12) 50 0 mcg PO DAILY 09/14/21 09/14/21 History mcg tablet Patient History Medical History Dyslipidemia Fever Hypertension Hypothyroidism, postablative Leukocytosis Mitral valve regurgitation Productive cough Social History Smoking Status: Never smoker Second Hand Exposure: No; Hx Alcohol Use: No Hx Substance Use: No Preferred Language: Mosotho Communication Ability: Effective 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 Thyroidectomy Review of Systems Constitutional: + fever, + fatigue and + malaise; no chills Eyes: no diplopia Ear, Nose, Mouth, Throat: no ear pain Respiratory: no cough and no dyspnea Cardiovascular: no chest pain Gastrointestinal: + abdominal pain and + nausea; no vomiting Genitourinary: no dysuria Musculoskeletal: + back pain Integumentary: no rash Neurologic: + generalized weakness Physical Exam Constitutional: well developed and well nourished; no acute distress Eyes: + anicteric sclerae; no conjunctival abnormality ENMT: Ears: no hearing impairment Neck: trachea midline Respiratory: normal respiratory effort, lungs clear to auscultation Cardiovascular: Rate/Rhythm: regular rate and regular rhythm Gastrointestinal (Abdomen): Abdomen is soft and nondistended. Patient had significant pain with palpation in the right upper quadrant with a positive Mcdaniel sign. There is no rebound tenderness or guarding. Musculoskeletal: No calf tenderness Skin: no rashes Neurologic: moves all extremities Psychiatric: A+Ox3, euthymic affect Results & Data ([facility]) Vital Signs (Past 12 Hours) Vital Signs Temp Pulse Pulse Resp BP BP Pulse Ox 09/14/21 23:48 88 22 132/63 96 09/14/21 20:00 85 16 155/64 H 98 09/14/21 18:13 105 H 20 168/84 H 96 09/14/21 14:38 38.0 C H 92 H 18 105/54 L 95 PG Care Time/CCT Total # of Minutes Spent Total Time Spent with Patient: Total time spent is greater than 50% in coordination of care (as documented) at patient's floor/unit and/or counseling patient: Coding Level of Care Code 30430 Inpt Consult Level 5 Diagnoses Cholecystitis K81.9
[2021-09-15] MEDS ORDERED: PIPERACILLIN/TAZOBACTAM 4.5 GM in DEXTROSE 5% 100 ML IV ONE (00:15)
[2021-09-15] MEDS ORDERED: MoRPHine SULFATE 2 MG/ML CARP IV PRN (00:28)
[2021-09-15] MEDS: hydrALAZINE TAB 50 MG TAB PO SCH ×4 (00:58→22:10)
[2021-09-15] MEDS: PHENYTOIN SODIUM ER 100 MG CAP PO SCH ×3 (00:58→22:10)
[2021-09-15 04:56] LABS: Basophils # (auto) 0.02 K/uL (0-0.2); Basophils % (auto) 0.2 %; Eosinophils # (auto) 0.01 K/uL (0-0.5); Eosinophils % (auto) 0.1 %; Hematocrit (blood only) 24.9 % (37-47); Hemoglobin 8.4 g/dL (12.0-16.0); Immature Granulocytes # (auto) 0.02 K/uL (0.00-0.02); Immature Granulocytes % (auto) 0.2 %; Lymphocytes # (auto) 1.22 K/uL (1.2-3.4); Lymphocytes % (auto) 9.6 %; Mean Corpuscular Hemoglobin 29.7 pg (25-34); Mean Corpuscular Hgb Conc 33.7 g/dL (32-36); Mean Platelet Volume 9.2 fL (7.4-10.4); Monocytes # (auto) 1.08 K/uL (0.11-0.59); Monocytes % (auto) 8.5 %; Neutrophils # (auto) 10.35 K/uL (1.4-6.5); Neutrophils % (auto) 81.4 %; Platelet Count 182 K/uL (130-400); RDW Coefficient of Variation 14.7 % (11.5-14.5); RDW Standard Deviation 47.8 fL (36.4-46.3); Red Blood Count 2.83 M/uL (4.2-5.4)
--- NOTE | 2021-09-15 05:05 | Surgery Progress Note ---
Date of Service September 15, 2021 Assessment & Plan (1) Acute cholecystitis: Plan: Patient has been admitted by the hospitalist service. We will proceed as follows: Continue antibiotics in the form of Zosyn Continue IV fluid for hydration Maintain n.p.o. status for the present time Continue analgesics Continue antiemetics Dr. Bailey is tentatively planning on laparoscopic, possible open cholecystectomy this morning Additional recommendations will be made based on her operative findings and her postoperative course as it unfolds Admission and Anticipated Discharge Date Admission Date: September 14, 2021 Supervising Physician Co-Signing Physician Notes Dr. Bailey-patient is resting comfortably in bed She is for laparoscopic cholecystectomy today, continue IV antibiotics Subjective Patient is resting comfortably in bed. She denies any nausea or vomiting at the present time. She does note continued right upper quadrant pain with palpation. Physical Exam Gastrointestinal (Abdomen): Abdomen is soft and nondistended. She continues to have pain with palpation in the right upper quadrant. Results & Data ([facility]) Vital Signs (Past 12 Hours) Vital Signs Pulse Resp BP Pulse Ox 09/14/21 23:48 88 22 132/63 96 09/14/21 20:00 85 16 155/64 H 98 09/14/21 18:13 105 H 20 168/84 H 96 PG Care Time/CCT Total # of Minutes Spent Total Time Spent with Patient: Total time spent is greater than 50% in coordination of care (as documented) at patient's floor/unit and/or counseling patient: Coding Level of Care Code None Diagnoses Acute cholecystitis K81.0
[2021-09-15 05:34] LABS: BUN Creatinine Ratio 19.3 (10-20); Calcium 8.9 mg/dl (8.5-10.1); Creatinine Clr Calc Pharmacy 28.1 ml/min; Est GFR (African American) 37.3 ml/min; Est GFR (Non-African American) 32.1 ml/min
[2021-09-15] MEDS: PIPERACILLIN/TAZOBACTAM 3.375 GM in DEXTROSE 5% 100 ML IV SCH ×3 (06:01→22:10)
[2021-09-15] MEDS ORDERED: HYDROmorphone INJ 0.5 MG/0.5 ML SYR IV PRN (06:01)
[2021-09-15] MEDS: LEVOTHYROXINE SODIUM 175 MCG TABLET PO SCH (06:04)
[2021-09-15] MEDS ORDERED: fentaNYL citrate 100 MCG/2 ML VIAL ONE (06:57)
[2021-09-15] MEDS ORDERED: MIDAZOLAM HCL 1 MG/ML 2ML VIAL ONE (06:57)
[2021-09-15] MEDS ORDERED: PROPOFOL IV EMULSION 10 MG/ML 20 ML VIAL IV ONE (06:59)
[2021-09-15] MEDS ORDERED: LIDOCAINE 2% 2 ML VIAL/AMP(20MG/ML) INFIL ONE (06:59)
[2021-09-15] MEDS ORDERED: ROCURONIUM BROMIDE 10 MG/ML 5 ML VIAL IV ONE (06:59)
--- NOTE | 2021-09-15 07:13 | Anesthesiology Consultation ---
Date of Service September 15, 2021 Assessment & Plan Chart Review Chart Review: Acceptable Risk for Surgery and Patient NOT seen in Pre Admission Testing Consults Requested none History Surgery Operation Date: 09/15/21 07:30 Proposed Procedures p Laparoscopic Cholecystectomy - Hermelindo Bailey MD, FACS Height/Weight Height: 5 ft 3 in Weight: 77 kg Allergies Allergy/AdvReac Type Severity Reaction Status Date / Time No Known Allergies Allergy Unverified 09/14/21 20:09 Medications Home Medications Medication Instructions Recorded Confirmed Last Taken amlodipine 5 mg tablet 5 mg PO DAILY 06/13/20 09/14/21 Unknown aspirin 81 mg tablet,delayed 81 mg PO DAILY 06/13/20 09/14/21 Unknown release carvedilol 25 mg tablet 25 mg PO BID 06/13/20 09/14/21 Unknown escitalopram oxalate 20 mg tablet 20 mg PO DAILY 06/13/20 09/14/21 Unknown fenofibrate micronized 134 mg 134 mg PO DAILY 06/13/20 09/14/21 Unknown capsule furosemide 20 mg tablet 20 mg PO DAILY 06/13/20 09/14/21 Unknown hydralazine 50 mg tablet 50 mg PO TID 06/13/20 09/14/21 Unknown ketoconazole 2 % shampoo 1 applic TOPICAL UD 06/13/20 09/14/21 Unknown levothyroxine 175 mcg tablet 175 mcg PO DAILY 06/13/20 09/14/21 Unknown lisinopril 20 mg tablet 20 mg PO BID 06/13/20 09/14/21 Unknown multivitamin 1 tab PO DAILY 06/13/20 09/14/21 Unknown phenytoin sodium extended 100 mg 300 mg PO AMHS 06/13/20 09/14/21 Unknown capsule cyanocobalamin (vitamin B-12) 50 0 mcg PO DAILY 09/14/21 09/14/21 Unknown mcg tablet Active Medications Generic Name Dose Route Start Last Admin Trade Name Freq PRN Reason Stop Dose Admin Hydralazine HCl 50 mg 09/14/21 23:52 09/15/21 00:58 Hydralazine Tab 50 Mg Tab PO 10/14/21 23:51 50 mg TID ELISABETH Administration Sodium Chloride 1,000 mls @ 60 mls/hr 09/14/21 22:49 09/14/21 23:46 1/2 Nss IV 10/14/21 22:48 60 mls/hr .[id number] ELISABETH Administration Piperacillin Sod/Tazobactam 115 mls @ 28.75 mls/hr 09/15/21 06:00 09/15/21 06:01 Sod 3.375 gm/ Dextrose IV 09/25/21 05:59 28.8 mls/hr Q8H ELISABETH Administration Protocol Levothyroxine Sodium 175 mcg 09/15/21 06:30 09/15/21 06:04 Levothyroxine Sodium 175 Mcg Tablet PO 10/15/21 06:29 175 mcg DAILYBB ELISABETH Administration Phenytoin Sodium 300 mg 09/14/21 23:52 09/15/21 00:58 Phenytoin Sodium Er 100 Mg Cap PO 10/14/21 23:51 300 mg AMHS ELISABETH Administration Past Medical History Medical History Dyslipidemia Fever Hypertension Hypothyroidism, postablative Leukocytosis Mitral valve regurgitation Productive cough Social History Smoking Status: Never smoker Hx Alcohol Use: No Hx Substance Use: No Physical Exam Vital Signs Last Vital Signs Temp 98.2 F 09/14/21 23:52 Pulse 85 09/14/21 23:52 Resp 14 09/14/21 23:52 BP 153/55 H 09/14/21 23:52 Pulse Ox 96 09/14/21 23:52 Testing Laboratory Results 09/15/21 04:25 09/15/21 04:25 Urine Color Dark Yellow 09/14/21 19:40 Urine Appearance Clear (Clear) 09/14/21 19:40 Urine pH 5.0 (4.5-7.5) 09/14/21 19:40 Ur Specific [place] 1.026 (1.000-1.030) 09/14/21 19:40 Urine Protein 2+ (Negative) H 09/14/21 19:40 Urine Glucose (UA) Negative (Negative) 09/14/21 19:40 Urine Ketones Trace (Negative) H 09/14/21 19:40 Urine Nitrite Positive (Negative) A 09/14/21 19:40 Ur Leukocyte Esterase Trace (Negative) H 09/14/21 19:40 Urine WBC (Auto) 1-5 /hpf (0-5) 09/14/21 19:40 Urine RBC (Auto) 5-10 /hpf (0-4) H 09/14/21 19:40 U Hyaline Cast (Auto) 1-5 /lpf (0-5) 09/14/21 19:40 U Epithel Cells (Auto) >30 /lpf (0-5) H 09/14/21 19:40 Urine Bacteria (Auto) Negative (Negative) 09/14/21 19:40 Electrocardiogram Date: 09/14/21 Findings: + NSR @ Chest X-Ray Date: 09/14/21 Findings: + NAD
[2021-09-15] MEDS ORDERED: BUPIVACAINE 0.5 % 5 MG/1 ML MPF 30ML VIAL ONE (07:22)
[2021-09-15] MEDS ORDERED: ePHEDrine sulfate 50 MG/ML AMP IV PRN (07:25)
[2021-09-15] MEDS ORDERED: ONDANSETRON INJ 2 MG/ML 2 ML VIAL IV PRN ×2 (07:25→11:07)
[2021-09-15] MEDS ORDERED: ATROPINE SULFATE 0.1 MG/ML 10ML SYR IV PRN (07:25)
[2021-09-15] MEDS ORDERED: fentaNYL citrate 100 MCG/2 ML VIAL IV PRN (07:25)
[2021-09-15 07:46] LABS: Estimated Average Glucose 91 mg/dl; Hemoglobin A1C 4.8 % (4.5-5.6)
[2021-09-15] MEDS ORDERED: GLYCOPYRROLATE 0.2 MG/ML VIAL ONE (07:50)
[2021-09-15] MEDS ORDERED: NEOSTIGMINE METHYLSULFATE 1 MG/ML 10ML VIAL ONE (08:09)
[2021-09-15] MEDS ORDERED: ONDANSETRON INJ 2 MG/ML 2 ML VIAL ONE (08:10)
[2021-09-15] MEDS ORDERED: ACETAMINOPHEN 1,000 MG/100 ML VIAL IV ONE (08:32)
--- NOTE | 2021-09-15 08:32 | Post Operative Brief Note ---
PG Immediate Post Op with CF Date of Surgery September 15, 2021 Pre & Post Diagnosis Operation Date: 09/15/21 07:30 Pre-Op Diagnosis: Cholecystitis Post-Op Diagnosis: Cholecystitis, acute gangrenous cholecystitis I identified the patient and participated in the time-out.: Yes Procedure Operation Date: 09/15/21 07:30 Actual Procedures p Laparoscopic Cholecystectomy - Hermelindo Bailey MD, FACS Surgeon Hremelindo aBiley MD, FACS Billing And Insurance Coordinator Nurses Estimated Blood Loss 10 Findings Consistent with Post-Op Diagnosis Necrotic gallbladder with hemorrhage and purulent fluid within the gallbladder Stone in the neck with severe acute inflammation Specimens Specimen Description: Permanent Specimen A: Gallbladder Drains Koko-Márquez Drain (15Fr. Round)
--- NOTE | 2021-09-15 09:10 | Anesthesiology Progress Note ---
Date of Service September 15, 2021 Anesthesia Post Procedure Vital Signs Vital Signs: Temp Pulse Pulse Resp BP BP Pulse Ox 09/15/21 09:05 69 18 124/40 L 94 09/15/21 08:55 68 16 143/44 H 98 09/15/21 08:45 70 18 151/45 H 100 09/15/21 08:39 100.2 F H 74 18 138/51 L 99 09/14/21 23:52 98.2 F 85 14 153/55 H 96 09/14/21 23:48 88 22 132/63 96 09/14/21 20:00 85 16 155/64 H 98 09/14/21 18:13 105 H 20 168/84 H 96 09/14/21 14:38 100.4 F H 92 H 18 105/54 L 95 Pulse Ox 09/15/21 09:05 09/15/21 08:55 09/15/21 08:45 09/15/21 08:39 09/14/21 23:52 96 09/14/21 23:48 09/14/21 20:00 09/14/21 18:13 09/14/21 14:38 Pain Intensity Back: Pain Intensity: 4 Transfer of Care Handoff Completed per policy Notes Mental Status: alert / awake / arousable and participated in evaluation Patient Amnestic to Procedure: Yes Nausea / Vomiting: adequately controlled Pain: adequately controlled Airway Patency, RR, SpO2: stable & adequate BP & HR: stable & adequate Hydration State: stable & adequate Anesthetic Complications: no major complications apparent and Pt Satisfied with anesthetic care
--- NOTE | 2021-09-15 09:44 | Operative Report (OR) ---
DATE OF OPERATION: 09/15/2021 NAME OF OPERATION: Laparoscopic cholecystectomy with lysis of adhesions. STAFF SURGEON: Hermelindo Bailey MD. ANESTHESIA: General. DESCRIPTION OF PROCEDURE: The patient was brought in the operating room, placed on the operating tab le in supine position. She was brought from the Emergency Room. Her abdomen was prepped and draped in the usual fashion. Pneumatic stockings and orogastric tube were placed. 0.5% plain Marcaine was used to anesthetize skin and subcutaneous tissue above the umbilicus. Incision made carrying dissect ion down to the fascia, placing a Veress needle producing pneumoperitoneum. An 11 mm port placed at this level and under visualization, three 5 mm ports were placed, one cephalad and two laterally. The patient did have some bloody ascites, which I suspected was from hemorrhagic cholecystitis. The gallbladder was very distended. I did aspirate the bile, which was purulent. There were adhesions t o the gallbladder. These were taken down. The gallbladder was severely necrotic near the alexy hepa tis and it actually opened. I removed the single stone in the neck of the gallbladder, which was imp acted, placed it into an Endobag and then on dissection, I was able to identify the cystic duct going into the gallbladder. This was clipped and transected. Cystic artery was identified, clipped and t ransected and the gallbladder dissected away from the liver bed. The portion near the alexy hepatis actually came away from the main body because of necrosis. This w as placed into an Endobag. It was in a separate piece and then the remainder of the gallbladder diss ected away from the liver bed showing severe necrosis. Gallbladder was placed into the Endobag. At this point, we placed a 15 round Koko-Márquez drain through the lateral 5 mm port site into the subh epatic space, secured it using 3-0 nylon suture. After appropriate irrigation, hemostasis, all ports were removed. The gallbladder had been previously removed through the umbilical site. At this point, the fascia at the umbilicus closed using interrupted 0 Vicryl suture and then the sub cutaneous tissue at the umbilicus closed using 2-0 plain suture, then the skin reapproximated using 4-0 nylon suture. I did examine the gallbladder. The piece that was separate was the site near the alexy hepatis with the cystic duct, which did traverse directly into the gallbladder on dissection. All tissue passed to the pathologist. The patient was taken to the recovery room in stable condition . Job ID: [id number]
[2021-09-15] MEDS ORDERED: HYDROCODONE/ACETAMOPHEN 5/325MG TAB PO PRN (11:07)
[2021-09-15] MEDS ORDERED: PIPERACILL/TAZOBAC CONSULT ACTIVE PRN (11:07)
[2021-09-15] MEDS ORDERED: ACETAMINOPHEN 325 MG TAB PO PRN (11:07)
[2021-09-15] MEDS ORDERED: PIPERACILLIN/TAZOBACTAM 3.375 GM in DEXTROSE 5% 100 ML IV SCH (11:07)
[2021-09-15] MEDS ORDERED: PROMETHAZINE HCL 12.5 MG in SODIUM CHLORIDE 0.9% 50 ML IV PRN (11:07)
[2021-09-15] MEDS: FENOFIBRATE NANOCRYSTALLIZED 145 MG TABLET PO SCH (12:25)
[2021-09-15] MEDS: CYANOCOBALAMIN 500 MCG TABLET (VITAMIN B-12) PO SCH (12:25)
[2021-09-15] MEDS: carvediloL 25 MG TAB PO SCH ×2 (12:26→22:10)
[2021-09-15] MEDS: ' PO SCH (12:26)
[2021-09-15] MEDS: amLODIPine BESYLATE 5 MG TAB PO SCH (12:26)
[2021-09-15] MEDS: ASPIRIN 81 MG ECTAB PO SCH (12:26)
[2021-09-15] MEDS: ESCITALOPRAM OXALATE 20 MG TAB PO SCH (12:26)
[2021-09-15] MEDS: SODIUM CHLORIDE 0.9% 1000ML 1,000 ML IV SCH (12:28)
[2021-09-15] MEDS: HYDROmorphone INJ 0.5 MG/0.5 ML SYR IV PRN ×2 (12:30→21:01)
[2021-09-15] MEDS ORDERED: ACETAMINOPHEN 1000 MG/100 ML IV IV ONE (12:30)
--- NOTE | 2021-09-15 18:37 | Hospitalist Progress Note ---
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 She is being managed for the following: #. Sepsis #Acute cholecystitis Patient came in with flank pain and urinary frequency, did not complain belly pain. Met sepsis criteria at presentation. Admitting CTAP was suggestive of acute cholecystitis Surgery on board: Status post lap torrey with lysis of adhesions 09/15, continue with Zosyn. On diet Continue supportive management, analgesics, antiemetics. Monitor lytes and hemoglobin. Continue with IV fluid. #Chronic medical conditions: HTN, HLD, PVD, seizure disorder, hypothyroidism, iatrogenic vocal cord paralysis Resume home meds when able. Patient's creatinine close to baseline. DVT prophylaxis: Heparin subcu Full code Admission and Anticipated Discharge Date Admission Date: September 14, 2021 Subjective Patient was lying in bed, drowsy, recently had lap torrey at the time of bedside exam, Ox3, reports belly pain, will give pain meds. Patient denies headache/dizziness/chest pain/palpitation/other review of symptoms. Physical Exam Physical Exam: GENERAL: Dowsy and oriented x3. NAD, on 1L. HEENT: No pallor, no icterus. Pupils equal, round and reactive to light. Oral mucosa moist. NECK: No JVD, no neck masses. HEART: S1 and S2 heard. Regular rate and rhythm. Systolic murmur over aortic and pulmonic area, no gallop. RESPIRATORY SYSTEM: Normal AP diameter. No accessory muscle use. No wheezing, no crackles. ABDOMEN: Soft, bowel sounds present, deep palpation not performed due to status post lap torrey just prior to exam, clean dressing over the ports without soakage. No distention. CENTRAL NERVOUS SYSTEM: No facial droop. Speech is clear. Obeys simple commands. Moves extremities. EXTREMITIES: Trace BLE edema, no erythema seen. ZOHRA drain in situ with serosanguineous fluid collection. Results & Data Results & Data ([facility]) Vital Signs (Past 12 Hours) Vital Signs Temp Pulse Resp BP Pulse Ox 09/15/21 12:00 37 C 82 20 95/75 L 97 09/15/21 10:30 37 C 78 18 144/78 H 97 09/15/21 10:00 36.8 C 74 20 135/76 96 09/15/21 09:25 37 C 70 18 129/43 L 96 09/15/21 09:15 37.3 C 69 18 127/55 L 97 09/15/21 09:05 69 18 124/40 L 94 09/15/21 08:55 68 16 143/44 H 98 09/15/21 08:45 70 18 151/45 H 100 09/15/21 08:39 37.9 C H 74 18 138/51 L 99
[2021-09-16] MEDS: HYDROmorphone INJ 0.5 MG/0.5 ML SYR IV PRN ×2 (00:07→03:58)
[2021-09-16] MEDS: LEVOTHYROXINE SODIUM 175 MCG TABLET PO SCH (03:57)
[2021-09-16] MEDS: HEPARIN SOD 5,000 UNIT/0.5 ML VIAL SQ SCH ×2 (03:57→21:13)
[2021-09-16] MEDS: SODIUM CHLORIDE 0.9% 1000ML 1,000 ML IV SCH (04:02)
--- NOTE | 2021-09-16 04:56 | Surgery Progress Note ---
Date of Service September 16, 2021 Assessment & Plan (1) Cholecystitis: Plan: Status post laparoscopic cholecystectomy on 09/15/2021 (postoperative a #1) Continue diet as tolerated Continue analgesics as needed Continue antiemetics as needed Continue IV fluids for hydration until we are certain her oral intake is adequate Continue antibiotics in the form of Zosyn due to necrotic gallbladder Increase activity as able Encourage use of incentive spirometry Admission and Anticipated Discharge Date Admission Date: September 14, 2021 Supervising Physician Co-Signing Physician Notes Patient with severe gangrenous hemorrhagic cholecystitis with purulent fluid within the gallbladder causing sepsis Patient did have some mild pain Her vital signs are stable Drain output is serosanguineous and moderate overnight-nonbilious Her abdomen is nondistended Continue IV antibiotics as she did have significant evidence of infection with the purulent bile Subjective Patient is resting comfortably in bed. She notes generalized abdominal pain. She denies any nausea or vomiting. She says she was able to tolerate a small amount of oral intake last night. She denies any fevers, shakes, chills. No BM or flatus since surgery. She denies any shoulder pain. Physical Exam Gastrointestinal (Abdomen): Abdomen has minimal distention. Bowel sounds are hypoactive. Patient has generalized pain with palpation near surgical incisions. ZOHRA drain is in placeit is draining serosanguineous fluid and has had about 65 cc since surgery. PG Care Time/CCT Total # of Minutes Spent Total Time Spent with Patient: Total time spent is greater than 50% in coordination of care (as documented) at patient's floor/unit and/or counseling patient: Coding Level of Care Code None Diagnoses Cholecystitis K81.9
[2021-09-16] MEDS: PIPERACILLIN/TAZOBACTAM 3.375 GM in DEXTROSE 5% 100 ML IV SCH ×2 (06:21→18:33)
[2021-09-16 06:26] LABS: Basophils # (auto) 0.01 K/uL (0-0.2); Basophils % (auto) 0.1 %; Eosinophils # (auto) 0.03 K/uL (0-0.5); Eosinophils % (auto) 0.4 %; Hematocrit (blood only) 21.5 % (37-47); Hemoglobin 7.4 g/dL (12.0-16.0); Immature Granulocytes # (auto) 0.01 K/uL (0.00-0.02); Immature Granulocytes % (auto) 0.1 %; Lymphocytes # (auto) 0.87 K/uL (1.2-3.4); Lymphocytes % (auto) 12.4 %; Mean Corpuscular Hemoglobin 30.5 pg (25-34); Mean Corpuscular Hgb Conc 34.4 g/dL (32-36); Mean Corpuscular Volume 88.5 fL (80-100); Mean Platelet Volume 9.4 fL (7.4-10.4); Monocytes # (auto) 0.46 K/uL (0.11-0.59); Monocytes % (auto) 6.5 %; Neutrophils # (auto) 5.65 K/uL (1.4-6.5); Neutrophils % (auto) 80.5 %; Platelet Count 163 K/uL (130-400); RDW Coefficient of Variation 15.2 % (11.5-14.5); RDW Standard Deviation 49.3 fL (36.4-46.3); Red Blood Count 2.43 M/uL (4.2-5.4); White Blood Count 7.03 K/uL (4.8-10.8)
--- NOTE | 2021-09-16 06:43 | Surgery Progress Note ---
Date of Service September 16, 2021 Assessment & Plan (1) S/P laparoscopic cholecystectomy: Plan: Patient with severe gangrenous hemorrhagic cholecystectomy Her H&H has dropped some this morning most likely from perioperative bleeding and IV fluids We will stop her IV fluids and be sure to have her typed and screened Discussed with the medical team needs for transfusion She does appear to be asymptomatic Admission and Anticipated Discharge Date Admission Date: September 14, 2021 PG Care Time/CCT Total # of Minutes Spent Total Time Spent with Patient: Total time spent is greater than 50% in coordination of care (as documented) at patient's floor/unit and/or counseling patient: Coding Level of Care Code None Diagnoses S/P laparoscopic cholecystectomy Z90.49
[2021-09-16 06:52] LABS: Albumin Level 2.1 gm/dl (3.4-5.0); BUN Creatinine Ratio 17.2 (10-20); Bilirubin Direct 0.4 mg/dl (0-0.2); Calcium 8.2 mg/dl (8.5-10.1); Creatinine Clr Calc Pharmacy 15.3 ml/min; Est GFR (African American) 17.9 ml/min; Est GFR (Non-African American) 15.5 ml/min; Magnesium 1.9 mg/dl (1.8-2.4); Potassium 4.1 mmol/L (3.5-5.1)
[2021-09-16 06:55] LABS: RBC Morphology Unremarkable
[2021-09-16 07:01] LABS: Albumin Globulin Ratio 0.5 (0.9-2); Bilirubin,Total 0.6 mg/dl (0.2-1); Phosphorus 6.4 mg/dl (2.5-4.9); Total Protein 6.1 gm/dl (6.4-8.2)
[2021-09-16] MEDS ORDERED: SODIUM CHLORIDE 0.9% 250 ML IV PRN (07:35)
[2021-09-16] MEDS: hydrALAZINE TAB 50 MG TAB PO SCH ×3 (10:02→21:13)
[2021-09-16] MEDS: CYANOCOBALAMIN 500 MCG TABLET (VITAMIN B-12) PO SCH (10:02)
[2021-09-16] MEDS: FENOFIBRATE NANOCRYSTALLIZED 145 MG TABLET PO SCH (10:02)
[2021-09-16] MEDS: PHENYTOIN SODIUM ER 100 MG CAP PO SCH ×2 (10:03→21:13)
[2021-09-16] MEDS: amLODIPine BESYLATE 5 MG TAB PO SCH (10:03)
[2021-09-16] MEDS: carvediloL 25 MG TAB PO SCH ×2 (10:03→21:13)
[2021-09-16] MEDS: ASPIRIN 81 MG ECTAB PO SCH (10:03)
[2021-09-16] MEDS: ' PO SCH (10:03)
[2021-09-16] MEDS: ESCITALOPRAM OXALATE 20 MG TAB PO SCH (10:03)
[2021-09-16] MEDS: HYDROCODONE/ACETAMOPHEN 5/325MG TAB PO PRN ×2 (12:30→19:58)
--- NOTE | 2021-09-16 12:40 | XRay Report ---
XR chest 1V portable HISTORY: 81 years-old Female ?pulm edema?infection acute shortness of breath COMPARISON: Chest radiograph 09/14/2021 TECHNIQUE: Portable AP view of the chest FINDINGS: Cardiac silhouette is enlarged. Pulmonary vascular congestion. Moderate right hemidiaphragmatic eleva tion is unchanged. Mild subsegmental bibasilar densities. Ossified plaque of the thoracic aorta. No p neumothorax. No large pleural effusion. Degenerative changes of the shoulders and spine. IMPRESSION: 1. Cardiomegaly with pulmonary vascular congestion, new from prior. 2. Unchanged right hemidiaphragmatic elevation with mild bibasilar opacities suggestive of atelectasi s. ACT 112: Negative or not required by law. The above report was generated using voice recognition software. It may contain grammatical, syntax o r spelling errors. Electronically signed by: Curt Hebert M.D. 09/16/2021 12:39 PM
[2021-09-16 16:45] LABS: Hematocrit (blood only) 28.4 % (37-47); Hemoglobin 9.9 g/dL (12.0-16.0)
--- NOTE | 2021-09-16 17:17 | Hospitalist Progress Note ---
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 She is being managed for the following: #. Sepsis #Acute cholecystitis Patient came in with flank pain and urinary frequency, did not complain belly pain. Met sepsis criteria at presentation. Admitting CTAP was suggestive of acute cholecystitis Surgery on board: Status post lap torrey with lysis of adhesions 09/15, continue with Zosyn. On diet Continue supportive management, analgesics, antiemetics. Antibiotics #. Acute on chronic anemia Baseline hemoglobin level 9, patient is status post lap torrey 09/15 Hemoglobin dropped to 7.4 on Multifactorial, likely postoperative blood loss versus hemodilution versus multiple blood tests versus combination of them Status post 1 unit PRBC transfusion 09/16 Repeat hemoglobin 9.9 Monitor hemoglobin daily #. AISHA over CKD Per admitting note, baseline creatinine around 1.4 Patient has history of CKD, follows kidney doctor Creatinine up trended to 2.73 on 09/16, likely secondary to third spacing leading to prerenal Continue with IV fluid, will give her a dose of Lasix if her blood pressure supports. Blood pressure soft. Will hold amlodipine for now until blood pressure more stable. If creatinine continues to up trend, will consult nephrology tomorrow. Hold home lisinopril. #Chronic medical conditions: HTN, HLD, PVD, seizure disorder, hypothyroidism, iatrogenic vocal cord paralysis Resume home meds when able. Patient's creatinine close to baseline. DVT prophylaxis: Heparin subcu Full code Admission and Anticipated Discharge Date Admission Date: September 14, 2021 Subjective Patient was seen and examined at the bedside, on 2 L nasal cannula oxygen, NAD, patient reports eating okay, has moved bowels today. No new acute events overnight per patient. Patient denies any fever/chills/chest pain/palpitation/other review of symptoms. Physical Exam Physical Exam: GENERAL: Dowsy and oriented x3. NAD, on 2L. HEENT: No pallor, no icterus. Pupils equal, round and reactive to light. Oral mucosa moist. NECK: No JVD, no neck masses. HEART: S1 and S2 heard. Regular rate and rhythm. Systolic murmur over aortic and pulmonic area, no gallop. RESPIRATORY SYSTEM: Normal AP diameter. No accessory muscle use. No wheezing, no crackles. ABDOMEN: Soft, bowel sounds present, deep palpation not performed due to status post lap torrey just prior to exam, clean dressing over the ports without soakage. No distention. CENTRAL NERVOUS SYSTEM: No facial droop. Speech is clear. Obeys simple commands. Moves extremities. EXTREMITIES: Trace BLE edema, no erythema seen. ZOHRA drain in situ with serosanguineous fluid collection. Results & Data Results & Data ([facility]) Vital Signs (Past 12 Hours) Vital Signs Temp Pulse Pulse Resp BP BP Pulse Ox 09/16/21 15:42 96 09/16/21 13:00 75 15 95 09/16/21 12:45 78 17 90 09/16/21 12:30 78 25 H 89 L 09/16/21 12:15 80 20 91 09/16/21 12:00 37 C 75 78 18 96/82 L 97 09/16/21 11:45 80 20 78 L 09/16/21 11:30 80 23 94 09/16/21 11:15 77 24 115/56 L 97 09/16/21 11:00 36.8 C 81 78 18 123/51 L 96 09/16/21 10:45 72 21 98 09/16/21 10:30 37 C 82 76 18 113/54 L 113/54 L 97 09/16/21 10:15 83 25 H 96 09/16/21 10:00 36.9 C 83 83 18 114/49 L 97 09/16/21 09:45 37 C 85 83 18 105/49 L 97 09/16/21 09:35 37 C 84 16 105/49 L 96 09/16/21 09:34 37 C 84 16 105/49 L 96 09/16/21 09:30 36.9 C 89 84 27 H 109/58 L 97 09/16/21 09:15 90 22 96 09/16/21 09:00 87 25 H 96 09/16/21 08:45 88 20 95 09/16/21 08:30 88 22 97 09/16/21 08:15 78 17 97 09/16/21 08:00 36.8 C 75 18 97 Pulse Ox 09/16/21 15:42 09/16/21 13:00 09/16/21 12:45 09/16/21 12:30 09/16/21 12:15 09/16/21 12:00 09/16/21 11:45 09/16/21 11:30 09/16/21 11:15 09/16/21 11:00 09/16/21 10:45 09/16/21 10:30 09/16/21 10:15 09/16/21 10:00 09/16/21 09:45 09/16/21 09:35 09/16/21 09:34 09/16/21 09:30 09/16/21 09:15 09/16/21 09:00 09/16/21 08:45 09/16/21 08:30 09/16/21 08:15 09/16/21 08:00 96
[2021-09-16] MEDS ORDERED: FUROSEMIDE 40 MG/4 ML VIAL IV SCH (17:30)
[2021-09-16 22:22] LABS: Hematocrit (blood only) 25.3 % (37-47); Hemoglobin 8.7 g/dL (12.0-16.0)
[2021-09-17] MEDS: LEVOTHYROXINE SODIUM 175 MCG TABLET PO SCH (05:49)
[2021-09-17] MEDS: PIPERACILLIN/TAZOBACTAM 3.375 GM in DEXTROSE 5% 100 ML IV SCH ×2 (05:49→18:10)
[2021-09-17 07:33] LABS: Hematocrit (blood only) 25.9 % (37-47); Mean Corpuscular Hemoglobin 30.2 pg (25-34); Mean Corpuscular Hgb Conc 34.7 g/dL (32-36); Mean Corpuscular Volume 86.9 fL (80-100); Mean Platelet Volume 9.7 fL (7.4-10.4); Platelet Count 201 K/uL (130-400); RDW Coefficient of Variation 14.6 % (11.5-14.5); RDW Standard Deviation 46.8 fL (36.4-46.3); Red Blood Count 2.98 M/uL (4.2-5.4); White Blood Count 7.94 K/uL (4.8-10.8)
[2021-09-17 07:59] LABS: BUN Creatinine Ratio 21.6 (10-20); Calcium 8.2 mg/dl (8.5-10.1); Creatinine Clr Calc Pharmacy 15.4 ml/min; Est GFR (Non-African American) 15.5 ml/min; Magnesium 1.9 mg/dl (1.8-2.4)
[2021-09-17] MEDS: carvediloL 25 MG TAB PO SCH ×2 (08:23→20:02)
[2021-09-17] MEDS: ASPIRIN 81 MG ECTAB PO SCH (08:23)
[2021-09-17] MEDS: ESCITALOPRAM OXALATE 20 MG TAB PO SCH (08:24)
[2021-09-17] MEDS: FENOFIBRATE NANOCRYSTALLIZED 145 MG TABLET PO SCH (08:24)
[2021-09-17] MEDS: CYANOCOBALAMIN 500 MCG TABLET (VITAMIN B-12) PO SCH (08:24)
[2021-09-17] MEDS: hydrALAZINE TAB 50 MG TAB PO SCH ×3 (08:25→20:04)
[2021-09-17] MEDS: ' PO SCH (08:25)
[2021-09-17] MEDS: HEPARIN SOD 5,000 UNIT/0.5 ML VIAL SQ SCH ×2 (08:25→20:03)
[2021-09-17] MEDS: PHENYTOIN SODIUM ER 100 MG CAP PO SCH ×2 (08:25→20:03)
--- NOTE | 2021-09-17 09:01 | Surgery Progress Note ---
Date of Service September 17, 2021 Assessment & Plan (1) Acute cholecystitis: Plan: POD#2 lap torrey for gangrenous cholecystitis WBC 7.9, VSS. Hbg 9 (8.7), received 1u transfusion yesterday BUN/Cr still elevated Slow progress. continue diet as tolerates ZOHRA serosang.. keep in place for now Continue IV abx Out of bed as tolerates & pulmonary toilet Admission and Anticipated Discharge Date Admission Date: September 14, 2021 Supervising Physician Co-Signing Physician Notes agree with above- will need 2-3 days addnl in hospital Subjective Patient reports some intermittent lower abdominal pain that comes and goes. She also has some mild nausea, no vomiting. Had a BM this AM. Was out of bed to chair today this morning, but wanted to get back into bed. Physical Exam Physical Exam: awake Gastrointestinal (Abdomen): Inspection/Auscultation: + abdomen distended (mild) and + abdominal surgical drain present (serosang.) Percussion/Palpation: + abdomen tender (some lower abdominal discomfort to palpation and saurav-incisionally) and abdomen soft Results & Data ([facility]) Vital Signs (Past 12 Hours) Vital Signs Temp Pulse Pulse Resp BP Pulse Ox 09/17/21 08:31 37.0 C 91 H 20 153/69 H 91 09/17/21 04:00 36.8 C 85 18 137/71 91 09/16/21 22:50 36.5 C 75 18 121/49 L 91 09/16/21 22:48 79 PG Care Time/CCT Total # of Minutes Spent Total Time Spent with Patient: Total time spent is greater than 50% in coordination of care (as documented) at patient's floor/unit and/or counseling patient: Coding Level of Care Code None Diagnoses Acute cholecystitis K81.0
[2021-09-17] MEDS: SODIUM CHLORIDE 0.9% 1000ML 1,000 ML IV SCH ×3 (11:11→20:05)
[2021-09-17] MEDS: MAGNESIUM OXIDE 400 MG TAB PO SCH ×2 (11:13→20:04)
[2021-09-17] MEDS: FUROSEMIDE 20 MG TAB PO SCH (11:13)
--- NOTE | 2021-09-17 16:32 | Nephrology Consultation ---
Date of Consultation September 17, 2021 Assessment & Plan (1) Acute on chronic renal failure: nonoliguric stage 1 AISHA on CKD 3B from ATN d/t sepsis. baseline creatinine 1.4; delayed change in creatinine not uncommmon; creatinine stable today but remains at highest value this admission. and with emerging anion gap acidosis; else chemistries ok; volume status ok. -recheck uacm ordered -pls get daily bmp -hold lasix order in -changed NS to D5W w/ 75 mEq/L sodium bicarb -continue to hold aCEI -cont strict I/O -no indication for discussion of dialysis currently History of Present Illness Reason for Consultation: AISHA on CKD Requesting Physician: Dr Sood Attending Physician: Julio Sood MD History of Present Illness 81 y/o F whom I'm asked to see for AISHA on CKD was admitted here 09/14 w/ sepsis from acute gangrenous cholecystitis. PMH includes often uncontrolled HTN, valvular heart disease with aortic stenosis/mitral rgg, CKD3B follows w/ Dr Beasley in CKD clinic and baseline creatinine 1.3-1.4. Takes daily lasix low dose and full dose lisinopril as OP. Her creatinine was 1.3 on admission with abrupt uptrend to 2.7 on 09/16 and 09/17. She underwent emergent laparoscopic cholecystectomy on 09/15. She is on zosyn and is receiving NS at 80 mL hourly; also on low dose po lasix as well as hydralazine, coreg, amlodipine. No IV contrast exposure. some lower bp transiently 09/15 late morning through 09/16 late afternoon >> SBP in this timeframe 90-100s; else generally 130-150s. Endorses intermittent N; tolerating minimal po; passing gas. abd pain present RUQ but manageable. Allergies Allergy/AdvReac Type Severity Reaction Status Date / Time No Known Allergies Allergy Unverified 09/14/21 20:09 Home Medications Medication Instructions Recorded Confirmed Type amlodipine 5 mg tablet 5 mg PO DAILY 06/13/20 09/14/21 History aspirin 81 mg tablet,delayed 81 mg PO DAILY 06/13/20 09/14/21 History release carvedilol 25 mg tablet 25 mg PO BID 06/13/20 09/14/21 History escitalopram oxalate 20 mg tablet 20 mg PO DAILY 06/13/20 09/14/21 History fenofibrate micronized 134 mg 134 mg PO DAILY 06/13/20 09/14/21 History capsule furosemide 20 mg tablet 20 mg PO DAILY 06/13/20 09/14/21 History hydralazine 50 mg tablet 50 mg PO TID 06/13/20 09/14/21 History ketoconazole 2 % shampoo 1 applic TOPICAL UD 06/13/20 09/14/21 History levothyroxine 175 mcg tablet 175 mcg PO DAILY 06/13/20 09/14/21 History lisinopril 20 mg tablet 20 mg PO BID 06/13/20 09/14/21 History multivitamin 1 tab PO DAILY 06/13/20 09/14/21 History phenytoin sodium extended 100 mg 300 mg PO AMHS 06/13/20 09/14/21 History capsule cyanocobalamin (vitamin B-12) 50 0 mcg PO DAILY 09/14/21 09/14/21 History mcg tablet Patient History Medical History (Updated 09/17/21 @ 18:26 by Dora Olmstead MD, PhD) CKD (chronic kidney disease) stage 3, GFR 30-59 ml/min Dyslipidemia Hypertension Hypothyroidism, postablative Mitral valve regurgitation Surgical History (Updated 09/17/21 @ 08:37 by Jolanta Lange RN) S/P laparoscopic cholecystectomy (09/15/21) Laparoscopic cholecystectomy with lysis of adhesions. Dr. Bailey 09/15/2021 Social History Smoking Status: Never smoker Second Hand Exposure: No; Hx Alcohol Use: No Hx Substance Use: No Preferred Language: Armenian Communication Ability: Effective Product Design Manager Required: No Beliefs That Will Affect Care: None marital status: / Current Living Situation: Alone Feels Safe at Home: Yes Assistive Devices: Walker Review of Systems Review of Systems: All systems reviewed & are unremarkable except as noted in HPI & below Physical Exam Constitutional: well developed, well nourished and cooperative; no acute distress Eyes: EOM intact bilaterally ENMT: Ears: no external ear abnormality Nose: no external nose abnormality Mouth: + dry oral mucous membranes Neck: no nuchal rigidity Respiratory: normal respiratory effort Auscultation: + diminished lung sounds and + crackles (dependent R sided / R base crx) Cardiovascular: Rate/Rhythm: regular rate and regular rhythm Heart Sounds: + murmur Extremities: no edema Gastrointestinal (Abdomen): Inspection/Auscultation: normal bowel sounds Percussion/Palpation: + abdomen tender (RUQ), + guarding and abdomen soft Musculoskeletal: Extremities: strength 5/5 throughout Skin: no rashes, warm and dry Neurologic: [place], fluent speech, no tremor Psychiatric: Orientation: oriented x 3 Results & Data ([facility]) Vital Signs (Past 12 Hours) Vital Signs Temp Pulse Pulse Resp BP Pulse Ox 09/17/21 15:03 36.6 C 81 18 166/70 H 93 09/17/21 14:52 36.9 C 79 20 150/71 H 92 09/17/21 11:05 36.8 C 80 20 122/71 93 09/17/21 10:45 87 09/17/21 08:31 37.0 C 91 H 20 153/69 H 91 Laboratory Results 09/17/21 07:08 09/17/21 07:08 admission > dark yellow urine, pH 5, 1026,trace ketones, + nitrites, 1+ bili, trace LE, 5-10 RBC, > 30 epi's, 1-5 granular casts
--- NOTE | 2021-09-17 17:19 | Hospitalist Progress Note ---
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 She is being managed for the following: #. Sepsis #Acute cholecystitis Patient came in with flank pain and urinary frequency, did not complain belly pain. Met sepsis criteria at presentation. Admitting CTAP was suggestive of acute cholecystitis Surgery on board: Status post lap torrey with lysis of adhesions 09/15, continue with Zosyn. On diet Continue supportive management, analgesics, antiemetics. Antibiotics #. Acute on chronic anemia Baseline hemoglobin level 9, patient is status post lap torrey 09/15 Hemoglobin dropped to 7.4 on 09/16 Multifactorial, likely postoperative blood loss versus hemodilution versus multiple blood tests versus combination of them Status post 1 unit PRBC transfusion 09/16 Repeat hemoglobin 9.9 Hb stable. Monitor hemoglobin daily. #. AISHA over CKD Per admitting note, baseline creatinine around 1.4 Patient has history of CKD, follows kidney doctor Creatinine up trended to 2.73 on 09/16, likely secondary to third spacing leading to prerenal --> lasix give, Cr still elevated at similar level next day--->Nephro consult 09/17 Nephro on board, appreciate recs. C/w home amlodipine; hold lasix and lisinopril. c/w IVF #Chronic medical conditions: HTN, HLD, PVD, seizure disorder, hypothyroidism, iatrogenic vocal cord paralysis Resume home meds when able. Patient's creatinine close to baseline. DVT prophylaxis: Heparin subcu Full code Disposition: Patient will be discharged to home with home health per CM. Awaiting medical stability, awaiting kidney function to improve. Admission and Anticipated Discharge Date Admission Date: September 14, 2021 Subjective Patient seen and examined at the bedside. Room air. NAD. No new acute events overnight. Patient moving bowel. Patient reporting occasional lower belly pain, not present at the time of bedside exam. Patient denies headache/dizziness/chest pain/palpitation/other review of symptoms. Patient is eating okay. Extremities Physical Exam Physical Exam: GENERAL: Dowsy and oriented x3. NAD, on RA. HEENT: No pallor, no icterus. Pupils equal, round and reactive to light. Oral mucosa moist. NECK: No JVD, no neck masses. HEART: S1 and S2 heard. Regular rate and rhythm. Systolic murmur over aortic and pulmonic area, no gallop. RESPIRATORY SYSTEM: Normal AP diameter. No accessory muscle use. No wheezing, no crackles. ABDOMEN: Soft, bowel sounds present, nontender on superficial palpation, clean dressing over the ports without soakage. No distention. CENTRAL NERVOUS SYSTEM: No facial droop. Speech is clear. Obeys simple commands. Moves extremities. EXTREMITIES: Trace BLE edema, no erythema seen. Results & Data Results & Data ([facility]) Vital Signs (Past 12 Hours) Vital Signs Temp Pulse Pulse Resp BP Pulse Ox 09/17/21 16:52 79 09/17/21 15:03 36.6 C 81 18 166/70 H 93 09/17/21 14:52 36.9 C 79 20 150/71 H 92 09/17/21 11:05 36.8 C 80 20 122/71 93 09/17/21 10:45 87 09/17/21 08:31 37.0 C 91 H 20 153/69 H 91
[2021-09-17] MEDS: SODIUM BICARBONATE 8.4% 75 MEQ in DEXTROSE 5% 1,000 ML IV SCH (20:02)
[2021-09-18 00:37] LABS: Appearance Urine Cloudy (Clear); Bacteria Urine Automated Negative (Negative); Bilirubin Urine Negative (Negative); Blood Urine Negative (Negative); Color Urine Yellow; Epithelial Cell Urine Auto >30 /lpf (0-5); Glucose Urine UA Negative (Negative); Ketones Urine Trace (Negative); Leukocyte Esterase Urine Negative (Negative); Nitrite Urine Negative (Negative); Protein Urine 1+ (Negative); Specific Gravity Urine 1.017 (1.000-1.030); Urobilinogen Urine Negative (Negative)
[2021-09-18 00:53] LABS: RBC Urine Automated 0-4 /hpf (0-4)
[2021-09-18] MEDS: PIPERACILLIN/TAZOBACTAM 3.375 GM in DEXTROSE 5% 100 ML IV SCH ×2 (06:02→17:44)
[2021-09-18] MEDS: LEVOTHYROXINE SODIUM 175 MCG TABLET PO SCH (06:02)
[2021-09-18] MEDS: SODIUM BICARBONATE 8.4% 75 MEQ in DEXTROSE 5% 1,000 ML IV SCH (06:46)
[2021-09-18] MEDS: ASPIRIN 81 MG ECTAB PO SCH (08:29)
[2021-09-18] MEDS: CYANOCOBALAMIN 500 MCG TABLET (VITAMIN B-12) PO SCH (08:29)
[2021-09-18] MEDS: carvediloL 25 MG TAB PO SCH ×2 (08:29→22:05)
[2021-09-18] MEDS: ESCITALOPRAM OXALATE 20 MG TAB PO SCH (08:29)
[2021-09-18] MEDS: hydrALAZINE TAB 50 MG TAB PO SCH ×3 (08:30→22:04)
[2021-09-18] MEDS: HEPARIN SOD 5,000 UNIT/0.5 ML VIAL SQ SCH ×2 (08:30→22:05)
[2021-09-18] MEDS: FENOFIBRATE NANOCRYSTALLIZED 145 MG TABLET PO SCH (08:30)
[2021-09-18] MEDS: PHENYTOIN SODIUM ER 100 MG CAP PO SCH ×2 (08:31→22:05)
[2021-09-18] MEDS: MAGNESIUM OXIDE 400 MG TAB PO SCH (08:31)
[2021-09-18] MEDS: ' PO SCH (08:31)
[2021-09-18 09:13] LABS: Hemoglobin 9.6 g/dL (12.0-16.0); Mean Corpuscular Hemoglobin 30.6 pg (25-34); Mean Corpuscular Hgb Conc 35.6 g/dL (32-36); Mean Platelet Volume 9.4 fL (7.4-10.4); Platelet Count 269 K/uL (130-400); RDW Coefficient of Variation 14.4 % (11.5-14.5); RDW Standard Deviation 45.8 fL (36.4-46.3); Red Blood Count 3.14 M/uL (4.2-5.4); White Blood Count 7.52 K/uL (4.8-10.8)
[2021-09-18 09:39] LABS: BUN Creatinine Ratio 27.6 (10-20); Calcium 8.7 mg/dl (8.5-10.1); Est GFR (African American) 29.3 ml/min; Est GFR (Non-African American) 25.2 ml/min; Potassium 3.6 mmol/L (3.5-5.1)
[2021-09-18] MEDS: amLODIPine BESYLATE 5 MG TAB PO SCH (09:51)
--- NOTE | 2021-09-18 10:27 | Nephrology Progress Note ---
Date of Service September 18, 2021 Assessment & Plan (1) Acute on chronic renal failure: Plan: Improving rapidly nonoliguric stage 1 AISHA on CKD 3B from prerenal / early ATN d/t sepsis. baseline creatinine 1.4; delayed change in creatinine not uncommmon; peak creatinine x48 hours on September 16 and at 2.7. With interval resolution of anion gap acidosis; other chemistries ok; volume status ok. -pls get daily bmp -hold lasix order in -changed D5W w/ 75 mEq/L sodium bicarb at 100 mL hourly to half-normal saline with 20 mEq/L potassium at 75 ml hourly -continue to hold aCEI -cont strict I/O -no indication for discussion of dialysis currently Admission and Anticipated Discharge Date Admission Date: September 14, 2021 Subjective no overnight events; feels markedly improved today; + BM, tolerating po, no new/to pt worrisome voiding concerns; no sob; seen on rounds [id number] Review of Systems Review of Systems: All systems reviewed & are unremarkable except as noted in Subjective Physical Exam Constitutional: well developed, well nourished and cooperative; no acute distress up in chair Eyes: EOM intact bilaterally ENMT: Ears: no external ear abnormality Nose: no external nose abnormality Mouth: + dry oral mucous membranes Neck: no nuchal rigidity Respiratory: normal respiratory effort Auscultation: + diminished lung sounds and + crackles (only R base crx) Cardiovascular: Rate/Rhythm: regular rate and regular rhythm Heart Sounds: + murmur Extremities: no edema Gastrointestinal (Abdomen): Inspection/Auscultation: normal bowel sounds Percussion/Palpation: + abdomen tender (RUQ), + guarding and abdomen soft Musculoskeletal: Extremities: strength 5/5 throughout Skin: no rashes, warm and dry Neurologic: higginbotham, fluent speech, no tremor Psychiatric: Orientation: oriented x 3 Results & Data ([facility]) Vital Signs (Past 12 Hours) Vital Signs Temp Pulse Pulse Resp BP Pulse Ox 09/18/21 09:29 87 09/18/21 07:00 37.4 C 83 18 149/71 H 95 09/18/21 04:00 36.7 C 75 19 187/75 H 94 09/18/21 00:43 84 09/17/21 23:00 37.2 C 73 18 151/73 H 91 Laboratory Results 09/18/21 08:24 11/23/21 08:September 18 UA: Cloudy yellow urine pH 5 specific gravity 1017 with 1+ blood trace ketones greater than 30 epithelial cells per low powered field; granular casts present again; other indices negative
[2021-09-18] MEDS: SODIUM CHLOR 0.45% + 20MEQ KCL 20 MEQ/1,000 ML BAG IV SCH ×2 (11:10→22:04)
--- NOTE | 2021-09-18 13:49 | Surgery Progress Note ---
Date of Service September 18, 2021 Assessment & Plan (1) S/P laparoscopic cholecystectomy: Plan: Much more awake and alert Says she feels much better today Possible discharge the next day or 2 depending on her renal function Admission and Anticipated Discharge Date Admission Date: September 14, 2021 Results & Data ([facility]) Vital Signs (Past 12 Hours) Vital Signs Temp Pulse Pulse Resp BP BP Pulse Ox 09/18/21 11:00 36.8 C 79 18 139/61 95 09/18/21 09:29 87 09/18/21 07:00 37.4 C 83 18 149/71 H 95 09/18/21 04:00 36.7 C 75 19 187/75 H 94 PG Care Time/CCT Total # of Minutes Spent Total Time Spent with Patient: Total time spent is greater than 50% in coordination of care (as documented) at patient's floor/unit and/or counseling patient: Coding Level of Care Code None Diagnoses S/P laparoscopic cholecystectomy Z90.49
--- NOTE | 2021-09-18 18:55 | Hospitalist Progress Note ---
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 She is being managed for the following: #. Sepsis #Acute cholecystitis Patient came in with flank pain and urinary frequency, did not complain belly pain. Met sepsis criteria at presentation. Admitting CTAP was suggestive of acute cholecystitis Surgery on board: Status post lap torrey with lysis of adhesions 09/15, continue with Zosyn. On diet Continue supportive management, analgesics, antiemetics. Antibiotics. Will need 7 to 10 days of total antibiotic therapy through the discharge. #. Acute on chronic anemia Baseline hemoglobin level 9, patient is status post lap torrey 09/15 Hemoglobin dropped to 7.4 on 09/16 Multifactorial, likely postoperative blood loss versus hemodilution versus multiple blood tests versus combination of them Status post 1 unit PRBC transfusion 09/16 Repeat hemoglobin 9.9 Hb stable. Monitor hemoglobin daily. #. AISHA over CKD Per admitting note, baseline creatinine around 1.4 Patient has history of CKD, follows kidney doctor Creatinine up trended to 2.73 on 09/16, likely secondary to third spacing leading to prerenal --> lasix given, Cr still elevated at similar level next day--->Nephro consult 09/17 --> slowly coming down, still elevated. Nephro on board, appreciate recs. C/w home amlodipine; hold lasix and lisinopril. c/w IVF per nephro #Chronic medical conditions: HTN, HLD, PVD, seizure disorder, hypothyroidism, iatrogenic vocal cord paralysis Continue with home meds as appropriate DVT prophylaxis: Heparin subcu Full code Disposition: Patient will be discharged to home with home health per CM. Awaiting medical stability, awaiting kidney function to improve. Admission and Anticipated Discharge Date Admission Date: September 14, 2021 Subjective Patient was out of bed and going to the restroom, no acute events overnight. Patient denies fever/headache/chills/other review of symptoms. Per RN no acute events overnight and she is eating and moving bowels okay. Physical Exam Physical Exam: GENERAL: Dowsy and oriented x3. NAD, on RA. HEENT: No pallor, no icterus. Pupils equal, round and reactive to light. Oral mucosa moist. NECK: No JVD, no neck masses. HEART: S1 and S2 heard. Regular rate and rhythm. Systolic murmur over aortic and pulmonic area, no gallop. RESPIRATORY SYSTEM: Normal AP diameter. No accessory muscle use. No wheezing, no crackles. ABDOMEN: Soft, bowel sounds present, nontender on superficial palpation, clean dressing over the ports without soakage. No distention. CENTRAL NERVOUS SYSTEM: No facial droop. Speech is clear. Obeys simple commands. Moves extremities. EXTREMITIES: Trace BLE edema, no erythema seen. Results & Data Results & Data ([facility]) Vital Signs (Past 12 Hours) Vital Signs Temp Pulse Pulse Resp BP BP Pulse Ox 09/18/21 16:31 82 09/18/21 15:00 36.8 C 85 20 160/76 H 92 09/18/21 11:00 36.8 C 79 18 139/61 95 09/18/21 09:29 87 09/18/21 07:00 37.4 C 83 18 149/71 H 95
[2021-09-19] MEDS: LEVOTHYROXINE SODIUM 175 MCG TABLET PO SCH (05:47)
[2021-09-19] MEDS: PIPERACILLIN/TAZOBACTAM 3.375 GM in DEXTROSE 5% 100 ML IV SCH (05:48)
[2021-09-19] MEDS: carvediloL 25 MG TAB PO SCH ×2 (05:48→18:18)
[2021-09-19] MEDS: hydrALAZINE TAB 50 MG TAB PO SCH ×3 (05:48→18:18)
[2021-09-19 07:08] LABS: Hematocrit (blood only) 26.2 % (37-47); Hemoglobin 9.2 g/dL (12.0-16.0); Mean Corpuscular Hemoglobin 30.6 pg (25-34); Mean Corpuscular Hgb Conc 35.1 g/dL (32-36); Mean Platelet Volume 9.1 fL (7.4-10.4); Platelet Count 238 K/uL (130-400); RDW Coefficient of Variation 14.5 % (11.5-14.5); RDW Standard Deviation 46.7 fL (36.4-46.3); Red Blood Count 3.01 M/uL (4.2-5.4); White Blood Count 5.91 K/uL (4.8-10.8)
[2021-09-19 07:36] LABS: BUN Creatinine Ratio 32.4 (10-20); Calcium 8.2 mg/dl (8.5-10.1); Creatinine Clr Calc Pharmacy 34.4 ml/min; Est GFR (African American) 47.4 ml/min; Est GFR (Non-African American) 40.9 ml/min; Phosphorus 1.9 mg/dl (2.5-4.9); Potassium 3.9 mmol/L (3.5-5.1)
[2021-09-19] MEDS: ASPIRIN 81 MG ECTAB PO SCH (07:45)
[2021-09-19] MEDS: FENOFIBRATE NANOCRYSTALLIZED 145 MG TABLET PO SCH (07:45)
[2021-09-19] MEDS: CYANOCOBALAMIN 500 MCG TABLET (VITAMIN B-12) PO SCH (07:45)
[2021-09-19] MEDS: PHENYTOIN SODIUM ER 100 MG CAP PO SCH ×2 (07:45→20:51)
[2021-09-19] MEDS: HEPARIN SOD 5,000 UNIT/0.5 ML VIAL SQ SCH ×2 (07:46→20:51)
[2021-09-19] MEDS: ESCITALOPRAM OXALATE 20 MG TAB PO SCH (07:46)
[2021-09-19] MEDS: amLODIPine BESYLATE 5 MG TAB PO SCH (07:46)
[2021-09-19] MEDS: ' PO SCH (07:46)
--- NOTE | 2021-09-19 09:08 | Surgery Progress Note ---
Date of Service September 19, 2021 Assessment & Plan (1) S/P laparoscopic cholecystectomy: Plan: POD 4 lap torrey stable from surgical standpoint Creatine improved Admission and Anticipated Discharge Date Admission Date: September 14, 2021 Subjective tolerating diet, minimal pain, BP was elevated Physical Exam Gastrointestinal (Abdomen): Percussion/Palpation: abdomen soft ZOHRA 60 cc Results & Data ([facility]) Vital Signs (Past 12 Hours) Vital Signs Temp Pulse Pulse Resp BP BP Pulse Ox 09/19/21 07:57 37.1 C 75 18 137/74 95 09/19/21 07:33 83 09/19/21 04:05 36.7 C 84 18 204/97 H 95 09/19/21 01:00 92 H 09/18/21 23:34 180/83 H 09/18/21 23:00 37.0 C 91 H 18 219/83 H 218/78 H 92 PG Care Time/CCT Total # of Minutes Spent Total Time Spent with Patient: Total time spent is greater than 50% in coordination of care (as documented) at patient's floor/unit and/or counseling patient: Coding Level of Care Code None Diagnoses S/P laparoscopic cholecystectomy Z90.49
[2021-09-19] MEDS: SODIUM CHLOR 0.45% + 20MEQ KCL 20 MEQ/1,000 ML BAG IV SCH (11:43)
--- NOTE | 2021-09-19 13:48 | Hospitalist Progress Note ---
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 She is being managed for the following: Sepsis Acute gangrenous cholecystitis Patient came in with flank pain and urinary frequency, did not complain much of abd. pain. Met sepsis criteria at presentation. Admitting CTAP was suggestive of acute cholecystitis Surgery consulted: Status post lap cholecystectomy with lysis of adhesions 09/15 (w/ Dr. Bailey), continue with Zosyn. On diet Plan to discharge on Augmentin. Continue supportive management, analgesics, antiemetics. Antibiotics. Will need 7 to 10 days of total antibiotic therapy through the discharge. Acute on chronic anemia Baseline hemoglobin level 9, patient is status post lap torrey 09/15 Hemoglobin dropped to 7.4 on 09/16 Multifactorial, likely postoperative blood loss versus hemodilution versus multiple blood tests versus combination of them Status post 1 unit PRBC transfusion 09/16 Repeat hemoglobin 9.9 Hb stable. Monitor hemoglobin daily. AISHA over CKD Per admitting note, baseline creatinine around 1.4 Patient has history of CKD, follows w/ nephrology (Dr. Beasley as outpt) Creatinine up trended to 2.73 on 09/16, likely secondary to third spacing leadi ng to prerenal --> lasix given, Cr still elevated at similar level next day --->Nephro consult 09/17. C/w home amlodipine; hold lasix and lisinopril. c/w IVF per nephro 09/19 Cr 1.2 Chronic medical conditions: HTN, HLD, PVD, seizure disorder, hypothyroidism, iatrogenic vocal cord paralysis Continue with home meds as appropriate DVT prophylaxis: Heparin subcu Full code Disposition: Plan to discharge to home with home health per CM. Admission and Anticipated Discharge Date Admission Date: September 14, 2021 Subjective Patient seen in follow-up of acute gangrenous cholecystitis, status post cholecystectomy Currently sitting up in a chair, in no acute distress. She is alert and oriented and answering questions appropriately. Denies any chest pain, shortness of breath, abdominal pain. She is eating. She is voiding and having bowel movements. She is inquiring about going home. Creatinine improved at 1.2. Review of Systems 2 Review of Systems: All systems reviewed & are unremarkable except as noted in Subjective Physical Exam Physical Exam: GENERAL: Awake, alert and oriented x3. NAD, on RA. HEENT: NC/AT. EOMI, PERRL. No pallor, no icterus.Oral mucosa moist. NECK: No JVD, no neck masses. HEART: S1 and S2 heard. Regular rate and rhythm. RESPIRATORY SYSTEM: Normal AP diameter. No accessory muscle use. No wheezing, no crackles. ABDOMEN: Soft, bowel sounds present, nontender on superficial palpation, clean dressing over the ports without soakage. No distention. NEURO:Awake alert oriented answering questions appropriately. No facial droop. Speech is clear. Moves extremities. EXTREMITIES: Trace BLE edema, no erythema seen. Results & Data Results & Data ([facility]) Vital Signs (Past 12 Hours) Vital Signs Temp Pulse Pulse Resp BP Pulse Ox 09/19/21 11:45 36.5 C 78 18 162/79 H 96 09/19/21 07:57 37.1 C 75 18 137/74 95 09/19/21 07:33 83 09/19/21 04:05 36.7 C 84 18 204/97 H 95 Laboratory Results 09/19/21 09/19/21 09/19/21 Range/Units 06:42 06:42 06:20 WBC 5.91 (4.8-10.8) K/uL RBC 3.01 L (4.2-5.4) M/uL Hgb 9.2 L (12.0-16.0) g/dL Hct 26.2 L (37-47) % MCV 87.0 (80-100) fL MCH 30.6 (25-34) pg MCHC 35.1 (32-36) g/dL RDW Std Deviation 46.7 H (36.4-46.3) fL RDW Coeff of Gee 14.5 (11.5-14.5) % Plt Count 238 (130-400) K/uL MPV 9.1 (7.4-10.4) fL Sodium 139 (136-145) mmol/L Potassium 3.9 (3.5-5.1) mmol/L Chloride 108 H (98-107) mmol/L Carbon Dioxide 25 (21-32) mmol/L Anion Gap 6.0 (3-11) BUN 40 H (7-18) mg/dl Creatinine 1.22 H D (0.6-1.2) mg/dl Est Cr Clr Drug Dosing 34.4 ml/min Est GFR ( Amer) 47.4 ml/min Est GFR (Non-Af Amer) 40.9 ml/min BUN/Creatinine Ratio 32.4 H (10-20) Glucose 116 H (70-99) mg/dl Calcium 8.2 L (8.5-10.1) mg/dl Phosphorus 1.9 L (2.5-4.9) mg/dl Magnesium 2.0 (1.8-2.4) mg/dl Stool Occult Bld Scrn Negative (Negative) Crossmatch 09/16/21 Range/Units 06:57 WBC (4.8-10.8) K/uL RBC (4.2-5.4) M/uL Hgb (12.0-16.0) g/dL Hct (37-47) % MCV (80-100) fL MCH (25-34) pg MCHC (32-36) g/dL RDW Std Deviation (36.4-46.3) fL RDW Coeff of Gee (11.5-14.5) % Plt Count (130-400) K/uL MPV (7.4-10.4) fL Sodium (136-145) mmol/L Potassium (3.5-5.1) mmol/L Chloride (98-107) mmol/L Carbon Dioxide (21-32) mmol/L Anion Gap (3-11) BUN (7-18) mg/dl Creatinine (0.6-1.2) mg/dl Est Cr Clr Drug Dosing ml/min Est GFR ( Amer) ml/min Est GFR (Non-Af Amer) ml/min BUN/Creatinine Ratio (10-20) Glucose (70-99) mg/dl Calcium (8.5-10.1) mg/dl Phosphorus (2.5-4.9) mg/dl Magnesium (1.8-2.4) mg/dl Stool Occult Bld Scrn (Negative) Crossmatch See Detail Medications Administered Current Inpatient Medications Acetaminophen (Acetaminophen 325 Mg Tab) 650 mg PO Q4H PRN PRN Reason: Pain Stop: 10/15/21 11:06 Hydrocodone Bitart/Acetaminophen (Hydrocodone/Acetamophen 5/325mg Tab) 1 tab PO Q4HWA PRN PRN Reason: Pain Stop: 09/29/21 11:06 Hydrocodone Bitart/Acetaminophen (Hydrocodone/Acetamophen 5/325mg Tab) 2 tab PO Q4HWA PRN PRN Reason: Moderate Pain Stop: 09/29/21 11:06 Last Admin: 09/16/21 19:58 Dose: 2 tab Documented by: Amlodipine Besylate (Amlodipine Besylate 5 Mg Tab) 5 mg PO DAILY ELISABETH Stop: 10/15/21 08:59 Last Admin: 09/19/21 07:46 Dose: 5 mg Documented by: Aspirin (Aspirin 81 Mg Ectab) 81 mg PO DAILY ELISABETH Stop: 10/15/21 08:59 Last Admin: 09/19/21 07:45 Dose: 81 mg Documented by: Carvedilol (Carvedilol 25 Mg Tab) 25 mg PO BID ELISABETH Stop: 10/19/21 04:39 Last Admin: 09/19/21 05:48 Dose: 25 mg Documented by: Cyanocobalamin (Cyanocobalamin 500 Mcg Tablet (Vitamin B-12)) 1,000 mcg PO DAILY ELISABETH Stop: 10/15/21 08:59 Last Admin: 09/19/21 07:45 Dose: 1,000 mcg Documented by: Escitalopram Oxalate (Escitalopram Oxalate 20 Mg Tab) 20 mg PO DAILY ELISABETH Stop: 10/15/21 08:59 Last Admin: 09/19/21 07:46 Dose: 20 mg Documented by: Fenofibrate (Fenofibrate Nanocrystallized 145 Mg Tablet) 145 mg PO DAILY ELISABETH Stop: 10/15/21 08:59 Last Admin: 09/19/21 07:45 Dose: 145 mg Documented by: Furosemide (Furosemide 20 Mg Tab) 20 mg PO DAILY ELISABETH Stop: 10/17/21 09:14 Last Admin: 09/17/21 11:13 Dose: 20 mg Documented by: Heparin Sodium (Porcine) (Heparin Sod 5,000 Unit/0.5 Ml Vial) 5,000 units SQ Q12 [facility] Stop: 10/16/21 04:59 Last Admin: 09/19/21 07:46 Dose: 5,000 units Documented by: Hydralazine HCl (Hydralazine Tab 50 Mg Tab) 100 mg PO TID [facility] Stop: 10/19/21 04:44 Last Admin: 09/19/21 13:17 Dose: 100 mg Documented by: Hydromorphone HCl (Hydromorphone Inj 0.5 Mg/0.5 Ml Syr) 0.25 mg IV Q3RWA PRN PRN Reason: Pain Stop: 09/29/21 11:06 Last Admin: 09/16/21 03:58 Dose: 0.25 mg Documented by: Promethazine HCl 12.5 mg/ (Sodium Chloride) 50.5 mls @ 204 mls/hr IV Q6H PRN PRN Reason: Nausea And Vomiting Stop: 10/15/21 11:06 Potassium Chloride/Sodium Chloride (1/2 Nss + 20meq Kcl 1000ml) 20 meq in 1,000 mls @ 75 mls/hr IV .[id number] [facility] Stop: 10/18/21 10:29 Last Admin: 09/19/21 11:43 Dose: 75 mls/hr Documented by: Piperacillin Sod/Tazobactam (Sod 3.375 gm/ Dextrose) 115 mls @ 28.75 mls/hr IV Q8H [facility]; Protocol Stop: 09/29/21 13:59 Last Admin: 09/19/21 13:17 Dose: 28.8 mls/hr Documented by: Levothyroxine Sodium (Levothyroxine Sodium 175 Mcg Tablet) [facility]: 10/15/21 06:29 Last Admin: 09/19/21 05:47 Dose: 175 mcg Documented by: Miscellaneous Information (Piperacill/Tazobac Consult Active) 1 ea N/A UD PRN PRN Reason: Consult Stop: 10/14/21 23:51 Multivitamins (') 1 tab PO DAILY [facility] Stop: 10/15/21 08:59 Last Admin: 09/19/21 07:46 Dose: 1 tab Documented by: Ondansetron HCl (Ondansetron Inj 2 Mg/Ml 2 Ml Vial) 4 mg IV [id number] PRN PRN Reason: Nausea Stop: 10/15/21 11:06 Oxycodone HCl (Oxycodone Hcl Ir 5 Mg Tab (Immediate Release)) 5 mg PO Q4H PRN PRN Reason: Pain Stop: 09/28/21 23:51 Phenytoin Sodium (Phenytoin Sodium Er 100 Mg Cap) 300 mg PO [facility] ELISABETH Stop: 10/14/21 23:51 Last Admin: 09/19/21 07:45 Dose: 300 mg Documented by:
[2021-09-19] MEDS ORDERED: PIPERACILLIN/TAZOBACTAM 3.375 GM in DEXTROSE 5% 100 ML IV SCH ×2 (14:00→16:00)
--- NOTE | 2021-09-19 15:24 | Nephrology Progress Note ---
Date of Service September 19, 2021 Assessment & Plan (1) Acute on chronic renal failure: Plan: Improving rapidly nonoliguric stage 1 AISHA on CKD 3B from prerenal / early ATN d/t sepsis. baseline creatinine 1.4; delayed change in creatinine not uncommmon; peak creatinine x48 hours on September 16 and at 2.7. With interval resolution of anion gap acidosis; other chemistries ok; volume status ok. creatinine now better than baseline Reasonable for discharge from a renal standpoint. NEPHRO D/C RECS: -weekly bmp x [address] Beasley's nurse order -resume lasix and 20 mg lisinopril DAILY (not bid lisinopril) -f/u appt w/ Dr Beasley in 2-4 wks Care coordinated w/ Dr Polanco Admission and Anticipated Discharge Date Admission Date: September 14, 2021 Subjective no acute interval clinical events. no sob, no voiding concerns, no edema; t olerating po Review of Systems Review of Systems: All systems reviewed & are unremarkable except as noted in Subjective Physical Exam Constitutional: well developed, well nourished and cooperative; no acute distress Eyes: EOM intact bilaterally ENMT: Ears: no external ear abnormality Nose: no external nose abnormality Mouth: + dry oral mucous membranes Neck: no nuchal rigidity Respiratory: normal respiratory effort Auscultation: + diminished lung sounds Cardiovascular: Rate/Rhythm: regular rate and regular rhythm Heart Sounds: + murmur Extremities: no edema Gastrointestinal (Abdomen): Inspection/Auscultation: normal bowel sounds Percussion/Palpation: + abdomen tender (RUQ), + guarding and abdomen soft Musculoskeletal: Extremities: strength 5/5 throughout Skin: no rashes, warm and dry Psychiatric: Orientation: oriented x 3 Results & Data ([facility]) Vital Signs (Past 12 Hours) Vital Signs Temp Pulse Pulse Resp BP Pulse Ox 09/19/21 14:57 80 09/19/21 11:45 36.5 C 78 18 162/79 H 96 09/19/21 07:57 37.1 C 75 18 137/74 95 09/19/21 07:33 83 09/19/21 04:05 36.7 C 84 18 204/97 H 95 Laboratory Results 09/19/21 06:42 09/19/21 06:42
[2021-09-19] MEDS ORDERED: FUROSEMIDE 20 MG TAB PO ONE (16:06)
--- NOTE | 2021-09-19 16:14 | Discharge Summary ---
Date of Service September 19, 2021 Admission HPI Per Admitting Provider History obtained from patient, family, and records. 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 Last confinement May 2020 for acute diverticulitis. Patient not feeling well for about a week. Flulike symptoms with myalgias and runny nose. Patient later noted urinary frequency with flank pain. No actual abdominal pain. Some nausea. No emesis. Patient denies chest pain, S OB. At the ER, patient given Ceftriaxone for sepsis. Medical History as above Surgical History : BTL, subcutaneous tumor removal, thyroidectomy Family History : Colon cancer, Parkinson's disease, DM Personal/Social history : Non-smoker, no EtOH intake, retired factory employee Admission Exam Per Admitting Provider GENERAL: Slightly uncomfortable, pleasant, slightly hard of hearing, obese, looks younger than stated age, no respiratory distress SKIN: Pallor , warm HEENT: Pale palpebral conjunctivae, no ptosis, dry buccal mucosa NECK : Supple, no tenderness CHEST : CTA, no tenderness HEART : RRR, systolic murmur best heard over second right intercostal space ABDOMEN: Some distention, right upper quadrant tenderness EXTREMITIES : Minimal LE swelling, no LE tenderness, no other conspicuous deformities noted NEUROLOGIC : Coherent, no facial asymmetry, mild hearing impairment, no other gross focality Principal Diagnosis Sepsis secondary to acute gangrenous cholecystitis AISHA on CKD Discharge Exam GENERAL: Awake, alert and oriented x3. NAD, on RA. HEENT: NC/AT. EOMI, PERRL. No pallor, no icterus.Oral mucosa moist. NECK: No JVD, no neck masses. HEART: S1 and S2 heard. Regular rate and rhythm. RESPIRATORY SYSTEM: Normal AP diameter. No accessory muscle use. No wheezing, no crackles. ABDOMEN: Soft, bowel sounds present, nontender on superficial palpation, clean dressing over the ports without soakage. No distention. NEURO:Awake alert oriented answering questions appropriately. No facial droop. Speech is clear. Moves extremities. EXTREMITIES: Trace BLE edema, no erythema seen. Discharge Data Allergies Allergy/AdvReac Type Severity Reaction Status Date / Time No Known Allergies Allergy Unverified 09/14/21 20:09 Consultations 09/14/21 21:12 ED Decision to Admit Stat 09/14/21 22:50 Consult General Surgery Routine 09/17/21 09:15 Consult Nephrology Routine Procedures Performed Operation Date: 09/15/21 07:30 Actual Procedures p Laparoscopic Cholecystectomy - Hermelindo Bailey MD, FACS Ordered Studies 09/14/21 21:46 CT abd pelvis wo con Urgent Hospital Course (1) Sepsis: (2) Acute cholecystitis: 81 yo F w/ HTN, HLD, PVD, valvular heart disease (mild , mild MR TTE 2020), CKD (baseline creatinine 1.4), seizure disorder, hypothyroidism, iatrogenic vocal cord paralysis [post thyroidectomy] requiring temporary tracheostomy/PEG tube placement, chronic anemia [baseline hemoglobin 9] presented to ED 09/14 with complaint of chills/weakness/nausea/urinary frequency/flank pain for about a week associated with flu symptoms with myalgia and runny nose. She is being managed for the following: Sepsis Acute gangrenous cholecystitis Patient came in with flank pain and urinary frequency, did not complain much of abd. pain. Met sepsis criteria at presentation. Admitting CTAP was suggestive of acute cholecystitis Surgery consulted: Status post lap cholecystectomy with lysis of adhesions 09/15 (w/ Dr. Bailey), continue with Zosyn. On diet Plan to discharge on Augmentin. Continue supportive management, analgesics, antiemetics. Antibiotics. Will need 7 to 10 days of total antibiotic therapy through the discharge. Acute on chronic anemia Baseline hemoglobin level 9, patient is status post lap torrey 09/15 Hemoglobin dropped to 7.4 on 09/16 Multifactorial, likely postoperative blood loss versus hemodilution versus multiple blood tests versus combination of them Status post 1 unit PRBC transfusion 09/16 Repeat hemoglobin 9.9 Hb stable. Monitor hemoglobin daily. AISHA over CKD Per admitting note, baseline creatinine around 1.4 Patient has history of CKD, follows w/ nephrology (Dr. Beasley as outpt) Creatinine up trended to 2.73 on 09/16, likely secondary to third spacing leading to prerenal --> lasix given, Cr still elevated at similar level next day --->Nephro consult 09/17. C/w home amlodipine; hold lasix and lisinopril. c/w IVF per nephro 09/19 Cr 1.2 Chronic medical conditions: HTN, HLD, PVD, seizure disorder, hypothyroidism, iatrogenic vocal cord paralysis Continue with home meds as appropriate DVT prophylaxis: Heparin subcu Full code Disposition: Plan to discharge to home with home health per CM. Total Time Total Time Spent Total Time Spent (In Minutes): 40 Discharge Plan Discharge Items Patient Disposition: Home - Home Health Services Reason For Visit: SEPSIS Discharge Diagnosis: Sepsis secondary to acute gangrenous cholecystitis AISHA on CKD Activity: As commented below Lifting: No more than 10 pounds Bathing: No limitations Driving/Machine Use: Resume 3 days after discharge Non-emergency contact: Primary Care Provider Call non-emergency contact if: you have any medication questions, your symptoms worsen and your pain is not controlled Follow-up/Referrals: Hermelindo Bailey MD, FACS [Physician] - (Please call to make an appointment in 1-2 weeks) Julian Lentz MD [Primary Care Provider] - (Date & Time 09/21/2021 2:20 PM Provider Julian Lentz MD Department Family Medicine [facility] ) Diet: Regular Addtl Attending Provider Instructions: Follow-up with your primary care doctor, the appointment was scheduled for you for September 21. Finish antibiotic treatment with Augmentin, as prescribed. Follow-up with general surgery, Dr. Bailey, in 1 to 2 weeks. Make sure to read instructions from your surgeon below. For pain, take Tylenol 1000 mg 3 times a day as needed, maximal daily dose 3000 mg. For more severe pain, you can take oxycodone, as prescribed. For now do not take lisinopril, until seen by your primary care doctor. In the meantime,increase your hydralazine 50 mg to 4 times a day. You will need blood work, BMP weekly for next 3 weeks. Lastly it is recommended that you take probiotics, to prevent any stomach upset from antibiotics. Addtl Rat Breeder Provider Instructions: SPECIAL CARE INSTRUCTIONS: * Cover incisions and change daily for comfort/drainage. * Expect some swelling and bruising. * You can take Tylenol as needed for pain. Call your doctor if: * Temperature above 101 degrees * Pain not relieved by pain medicine ordered * There is increased drainage or redness from any incision * You have any unanswered questions or concerns [phone]. FOLLOW UP VISIT: If not already scheduled, please call the office for a follow-up visit. OFFICE PHONE NUMBER: Dr. Bailey Office Pending Studies at Discharge: No Stand-Alone Forms: My [facility], Smoking Cessation Medications and DC Order Prescriptions: New amoxicillin-pot clavulanate [Augmentin] 875-125 mg tablet 1 tab PO BID 6 Days Qty: 12 RF: 0 oxycodone 5 mg tablet 5 mg PO Q8H PRN (Reason: pain) Qty: 5 RF: 0 Continued levothyroxine 175 mcg tablet 175 mcg PO DAILY RF: 0 amlodipine 5 mg tablet 5 mg PO DAILY RF: 0 aspirin 81 mg Tablet,Delayed Release (Dr/Ec) 81 mg PO DAILY RF: 0 carvedilol 25 mg tablet 25 mg PO BID RF: 0 fenofibrate micronized 134 mg capsule 134 mg PO DAILY RF: 0 escitalopram oxalate 20 mg tablet 20 mg PO DAILY RF: 0 ketoconazole 2 % shampoo 1 applic TOPICAL UD RF: 0 phenytoin sodium extended 100 mg capsule 300 mg PO AMHS RF: 0 hydralazine 50 mg tablet 50 mg PO TID RF: 0 furosemide 20 mg tablet 20 mg PO DAILY RF: 0 multivitamin Tablet 1 tab PO DAILY RF: 0 cyanocobalamin (vitamin B-12) 50 mcg Tablet 0 mcg PO DAILY RF: 0 Discontinued lisinopril 20 mg tablet 20 mg PO BID RF: 0 Discharge Orders: Discharge Order (Routine); Ordered 09/19/21 Ordered By: Greg Polanco Admission Data Admit Date/Time: 09/14/21 21:59 Attending Provider: Greg Polanco Admit Provider: Greg Middleton Primary Care Provider: Julian Lentz Other Providers: Greg Middleton ; Hermelindo Bailey ; Renny Dent ; Cesar Wise ; Wilfrid Nice Jr ; Greg Zarate ; Jimmy Pathak ; Isela Ortega ; aPul Wayne ; Wade Louise ; Dora Olmstead ; [facility] ; Julio Sood
[2021-09-19] MEDS: lisinopril 20 MG TAB PO SCH (20:52)
[2021-09-19] MEDS: AMOXICILLIN/CLAVULANATE 875 MG TAB PO SCH (20:53)
--- NOTE | 2021-09-20 05:38 | Surgery Progress Note ---
Date of Service September 20, 2021 Assessment & Plan (1) Acute cholecystitis: Plan: Status post laparoscopic cholecystectomy on 09/15/2021 (postop day #5) Continue analgesics Continue antiemetics Continue diet as tolerated Continue antibiotics in the form of Augmentin Creatinine has improved postoperatively Subcutaneous heparin is in place for DVT prevention Admission and Anticipated Discharge Date Admission Date: September 14, 2021 Subjective Patient is resting comfortably in bed. She does have some tenderness at her surgical incisions but notes overall her abdominal pain has improved since admission. She notes she has moved her bowels since her surgery and is tolerating solid food. Physical Exam Gastrointestinal (Abdomen): Abdomen is soft and nondistended with positive bowel sounds. Surgical incisions are clean dry and intact. Patient has appropriate tenderness near surgical incisions Results & Data ([facility]) Vital Signs (Past 12 Hours) Vital Signs Temp Pulse Resp BP BP Pulse Ox 09/20/21 04:37 36.9 C 84 18 182/89 H 96 09/19/21 23:54 37.0 C 88 18 180/73 H 94 09/19/21 20:46 36.9 C 95 H 18 200/77 H 94 09/19/21 17:56 224/90 H 240/89 H PG Care Time/CCT Total # of Minutes Spent Total Time Spent with Patient: Total time spent is greater than 50% in coordination of care (as documented) at patient's floor/unit and/or counseling patient: Coding Level of Care Code None Diagnoses Acute cholecystitis K81.0
[2021-09-20] MEDS: LEVOTHYROXINE SODIUM 175 MCG TABLET PO SCH (05:39)
[2021-09-20 08:21] LABS: Hematocrit (blood only) 28.9 % (37-47); Mean Corpuscular Hemoglobin 30.4 pg (25-34); Mean Corpuscular Hgb Conc 34.6 g/dL (32-36); Mean Corpuscular Volume 87.8 fL (80-100); Platelet Count 316 K/uL (130-400); RDW Coefficient of Variation 14.7 % (11.5-14.5); RDW Standard Deviation 47.6 fL (36.4-46.3); Red Blood Count 3.29 M/uL (4.2-5.4); White Blood Count 7.58 K/uL (4.8-10.8)
[2021-09-20 08:52] LABS: BUN Creatinine Ratio 32.9 (10-20); Calcium 8.5 mg/dl (8.5-10.1); Creatinine Clr Calc Pharmacy 40.6 ml/min; Est GFR (African American) 58.2 ml/min; Est GFR (Non-African American) 50.2 ml/min
[2021-09-20 09:01] LABS: Phosphorus 2.6 mg/dl (2.5-4.9)
[2021-09-20] MEDS: FENOFIBRATE NANOCRYSTALLIZED 145 MG TABLET PO SCH (09:08)
[2021-09-20] MEDS: amLODIPine BESYLATE 5 MG TAB PO SCH (09:08)
[2021-09-20] MEDS: hydrALAZINE TAB 50 MG TAB PO SCH (09:08)
[2021-09-20] MEDS: AMOXICILLIN/CLAVULANATE 875 MG TAB PO SCH (09:08)
[2021-09-20] MEDS: PHENYTOIN SODIUM ER 100 MG CAP PO SCH (09:08)
[2021-09-20] MEDS: ASPIRIN 81 MG ECTAB PO SCH (09:08)
[2021-09-20] MEDS: lisinopril 20 MG TAB PO SCH (09:08)
[2021-09-20] MEDS: CYANOCOBALAMIN 500 MCG TABLET (VITAMIN B-12) PO SCH (09:08)
[2021-09-20] MEDS: ' PO SCH (09:08)
[2021-09-20] MEDS: carvediloL 25 MG TAB PO SCH (09:08)
[2021-09-20] MEDS: HEPARIN SOD 5,000 UNIT/0.5 ML VIAL SQ SCH (09:09)
[2021-09-20] MEDS: ESCITALOPRAM OXALATE 20 MG TAB PO SCH (09:09)
--- NOTE | 2021-09-20 09:30 | Hospitalist Progress Note ---
Date of Service September 20, 2021 Assessment & Plan (1) Sepsis: (2) Acute cholecystitis: Plan: 81 yo F w/ HTN, HLD, PVD, valvular heart disease (mild , mild MR TTE 2020), CKD (baseline creatinine 1.4), seizure disorder, hypothyroidism, iatrogenic vocal cord paralysis [post thyroidectomy] requiring temporary tracheostomy/PEG tube placement, chronic anemia [baseline hemoglobin 9] presented to ED 09/14 with complaint of chills/weakness/nausea/urinary frequency/flank pain for about a week associated with flu symptoms with myalgia and runny nose. She is being managed for the following: Sepsis Acute gangrenous cholecystitis Patient came in with flank pain and urinary frequency, did not complain much of abd. pain. Met sepsis criteria at presentation. Admitting CTAP was suggestive of acute cholecystitis Surgery consulted: Status post lap cholecystectomy with lysis of adhesions 09/15 (w/ Dr. Bailey), continued with Zosyn. On diet Plan to discharge on Augmentin. Continue supportive management, analgesics, antiemetics. Antibiotics. Will need 7 to 10 days of total antibiotic therapy through the discharge. Acute on chronic anemia Baseline hemoglobin level 9, patient is status post lap torrey 09/15 Hemoglobin dropped to 7.4 on 09/16 Multifactorial, likely postoperative blood loss versus hemodilution versus multiple blood tests versus combination of them Status post 1 unit PRBC transfusion 09/16 Repeat hemoglobin 9.9 Hb stable. Monitor hemoglobin daily. AISHA over CKD - resolved Per admitting note, baseline creatinine around 1.4 Patient has history of CKD, follows w/ nephrology (Dr. Beasley as outpt) Creatinine up trended to 2.73 on 09/16, likely secondary to third spacing leading to prerenal --> lasix given, Cr still elevated at similar level next day --->Nephro consult 09/17. C/w home amlodipine; hold lasix and lisinopril. c/w IVF per nephro 09/19 Cr 1.2 09/19 Cr 1.0 Chronic medical conditions: HTN, HLD, PVD, seizure disorder, hypothyroidism, iatrogenic vocal cord paralysis Continue with home meds as appropriate DVT prophylaxis: Heparin subcu Full code Disposition: Plan to discharge to home with home health per CM. Admission and Anticipated Discharge Date Admission Date: September 14, 2021 Subjective Patient seen in follow-up of acute gangrenous cholecystitis, status post cholecystectomy Currently sitting up in a chair, in no acute distress. She is alert and oriented and answering questions appropriately. Denies any chest pain, shortness of breath, abdominal pain. She is eating. She is voiding and having bowel movements. She is inquiring about going home. Creatinine 1 today It was planned to discharge her yesterday however her blood pressure was elevate d. Plan to discharge today. Review of Systems Review of Systems: All systems reviewed & are unremarkable except as noted in Subjective Physical Exam Physical Exam: GENERAL: Awake, alert and oriented x3. NAD, on RA. HEENT: NC/AT. EOMI, PERRL. No pallor, no icterus.Oral mucosa moist. NECK: No JVD, no neck masses. HEART: S1 and S2 heard. Regular rate and rhythm. RESPIRATORY: Normal AP diameter. No accessory muscle use. No wheezing, no crackles. ABDOMEN: Soft, bowel sounds present, nontender on superficial palpation, clean dressing over incisions. No distention. NEURO:Awake alert oriented answering questions appropriately. No facial droop. Speech is clear. Moves extremities. EXTREMITIES: Trace BLE edema, no erythema seen. Results & Data Results & Data ([facility]) Vital Signs (Past 12 Hours) Vital Signs Temp Pulse Resp BP Pulse Ox 09/20/21 09:01 36.8 C 84 20 166/67 H 96 09/20/21 04:37 36.9 C 84 18 182/89 H 96 09/19/21 23:54 37.0 C 88 18 180/73 H 94 Laboratory Results 09/20/21 09/20/21 Range/Units 07:52 07:52 WBC 7.58 (4.8-10.8) K/uL RBC 3.29 L (4.2-5.4) M/uL Hgb 10.0 L (12.0-16.0) g/dL Hct 28.9 L (37-47) % MCV 87.8 (80-100) fL MCH 30.4 (25-34) pg MCHC 34.6 (32-36) g/dL RDW Std Deviation 47.6 H (36.4-46.3) fL RDW Coeff of Gee 14.7 H (11.5-14.5) % Plt Count 316 (130-400) K/uL MPV 9.0 (7.4-10.4) fL Sodium 145 (136-145) mmol/L Potassium 4.0 (3.5-5.1) mmol/L Chloride 113 H (98-107) mmol/L Carbon Dioxide 24 (21-32) mmol/L Anion Gap 8.0 (3-11) BUN 34 H (7-18) mg/dl Creatinine 1.03 (0.6-1.2) mg/dl Est Cr Clr Drug Dosing 40.6 ml/min Est GFR ( Amer) 58.2 ml/min Est GFR (Non-Af Amer) 50.2 ml/min BUN/Creatinine Ratio 32.9 H (10-20) Glucose 100 H (70-99) mg/dl Calcium 8.5 (8.5-10.1) mg/dl Phosphorus 2.6 (2.5-4.9) mg/dl Magnesium 2.0 (1.8-2.4) mg/dl Medications Administered Current Inpatient Medications Acetaminophen (Acetaminophen 325 Mg Tab) 650 mg PO Q4H PRN PRN Reason: Pain Stop: 10/15/21 11:06 Hydrocodone Bitart/Acetaminophen (Hydrocodone/Acetamophen 5/325mg Tab) 1 tab PO Q4HWA PRN PRN Reason: Pain Stop: 09/29/21 11:06 Hydrocodone Bitart/Acetaminophen (Hydrocodone/Acetamophen 5/325mg Tab) 2 tab PO Q4HWA PRN PRN Reason: Moderate Pain Stop: 09/29/21 11:06 Last Admin: 09/16/21 19:58 Dose: 2 tab Documented by: Amlodipine Besylate (Amlodipine Besylate 5 Mg Tab) 5 mg PO DAILY COUNTS INCLUDE 234 BEDS AT THE [facility] Stop: 10/15/21 08:59 Last Admin: 09/20/21 09:08 Dose: 5 mg Documented by: Amoxicillin/Clavulanate Potassium (Amoxicillin/Clavulanate 875 Mg Tab) 1 tab PO BIDM COUNTS INCLUDE 234 BEDS AT THE [facility] Stop: 09/29/21 20:59 Last Admin: 09/20/21 09:08 Dose: 1 tab Documented by: Aspirin (Aspirin 81 Mg Ectab) 81 mg PO DAILY COUNTS INCLUDE 234 BEDS AT THE [facility] Stop: 10/15/21 08:59 Last Admin: 09/20/21 09:08 Dose: 81 mg Documented by: Carvedilol (Carvedilol 25 Mg Tab) 25 mg PO BID COUNTS INCLUDE 234 BEDS AT THE [facility] Stop: 10/19/21 04:39 Last Admin: 09/20/21 09:08 Dose: 25 mg Documented by: Cyanocobalamin (Cyanocobalamin 500 Mcg Tablet (Vitamin B-12)) 1,000 mcg PO DAILY ELISABETH Stop: 10/15/21 08:59 Last Admin: 09/20/21 09:08 Dose: 1,000 mcg Documented by: Escitalopram Oxalate (Escitalopram Oxalate 20 Mg Tab) 20 mg PO DAILY ELISABETH Stop: 10/15/21 08:59 Last Admin: 09/20/21 09:09 Dose: 20 mg Documented by: Fenofibrate (Fenofibrate Nanocrystallized 145 Mg Tablet) 145 mg PO DAILY ELISABETH Stop: 10/15/21 08:59 Last Admin: 09/20/21 09:08 Dose: 145 mg Documented by: Furosemide (Furosemide 20 Mg Tab) 20 mg PO DAILY ELISABETH Stop: 10/17/21 09:14 Last Admin: 09/17/21 11:13 Dose: 20 mg Documented by: Heparin Sodium (Porcine) (Heparin Sod 5,000 Unit/0.5 Ml Vial) 5,000 units SQ Q12 ELISABETH Stop: 10/16/21 04:59 Last Admin: 09/20/21 09:09 Dose: 5,000 units Documented by: Hydralazine HCl (Hydralazine Tab 50 Mg Tab) 100 mg PO TID ELISABETH Stop: 10/19/21 04:44 Last Admin: 09/20/21 09:08 Dose: 100 mg Documented by: Hydromorphone HCl (Hydromorphone Inj 0.5 Mg/0.5 Ml Syr) 0.25 mg IV Q3RWA PRN PRN Reason: Pain Stop: 09/29/21 11:06 Last Admin: 09/16/21 03:58 Dose: 0.25 mg Documented by: Promethazine HCl 12.5 mg/ (Sodium Chloride) 50.5 mls @ 204 mls/hr IV Q6H PRN PRN Reason: Nausea And Vomiting Stop: 10/15/21 11:06 Levothyroxine Sodium (Levothyroxine Sodium 175 Mcg Tablet) 175 mcg PO DAILYBB COUNTS INCLUDE 234 BEDS AT THE [facility] Stop: 10/15/21 06:29 Last Admin: 09/20/21 05:39 Dose: 175 mcg Documented by: Lisinopril (Lisinopril 20 Mg Tab) 20 mg PO QAM COUNTS INCLUDE 234 BEDS AT THE [facility] Stop: 10/19/21 19:14 Last Admin: 09/20/21 09:08 Dose: 20 mg Documented by: Multivitamins (') 1 tab PO DAILY COUNTS INCLUDE 234 BEDS AT THE [facility] Stop: 10/15/21 08:59 Last Admin: 09/20/21 09:08 Dose: 1 tab Documented by: Ondansetron HCl (Ondansetron Inj 2 Mg/Ml 2 Ml Vial) 4 mg IV 4XDQ4H PRN PRN Reason: Nausea Stop: 10/15/21 11:06 Oxycodone HCl (Oxycodone Hcl Ir 5 Mg Tab (Immediate Release)) 5 mg PO Q4H PRN PRN Reason: Pain Stop: 09/28/21 23:51 Phenytoin Sodium (Phenytoin Sodium Er 100 Mg Cap) 300 mg PO AMHS COUNTS INCLUDE 234 BEDS AT THE [facility] Stop: 10/14/21 23:51 Last Admin: 09/20/21 09:08 Dose: 300 mg Documented by:
--- NOTE | 2021-09-20 09:44 | Discharge Summary ---
Date of Service September 20, 2021 Admission HPI Per Admitting Provider History obtained from patient, family, and records. 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 Last confinement May 2020 for acute diverticulitis. Patient not feeling well for about a week. Flulike symptoms with myalgias and runny nose. Patient later noted urinary frequency with flank pain. No actual abdominal pain. Some nausea. No emesis. Patient denies chest pain, S OB. At the ER, patient given Ceftriaxone for sepsis. Medical History as above Surgical History : BTL, subcutaneous tumor removal, thyroidectomy Family History : Colon cancer, Parkinson's disease, DM Personal/Social history : Non-smoker, no EtOH intake, retired factory employee Admission Exam Per Admitting Provider GENERAL: Slightly uncomfortable, pleasant, slightly hard of hearing, obese, looks younger than stated age, no respiratory distress SKIN: Pallor , warm HEENT: Pale palpebral conjunctivae, no ptosis, dry buccal mucosa NECK : Supple, no tenderness CHEST : CTA, no tenderness HEART : RRR, systolic murmur best heard over second right intercostal space ABDOMEN: Some distention, right upper quadrant tenderness EXTREMITIES : Minimal LE swelling, no LE tenderness, no other conspicuous deformities noted NEUROLOGIC : Coherent, no facial asymmetry, mild hearing impairment, no other gross focality Principal Diagnosis Sepsis secondary to acute gangrenous cholecystitis AISHA on CKD Discharge Exam GENERAL: Awake, alert and oriented x3. NAD, on RA. HEENT: NC/AT. EOMI, PERRL. No pallor, no icterus.Oral mucosa moist. NECK: No JVD, no neck masses. HEART: S1 and S2 heard. Regular rate and rhythm. RESPIRATORY: Normal AP diameter. No accessory muscle use. No wheezing, no cr ackles. ABDOMEN: Soft, bowel sounds present, nontender on superficial palpation, clean dressing over incisions. No distention. NEURO:Awake alert oriented answering questions appropriately. No facial droop. Speech is clear. Moves extremities. EXTREMITIES: Trace BLE edema, no erythema seen. Discharge Data Allergies Allergy/AdvReac Type Severity Reaction Status Date / Time No Known Allergies Allergy Unverified 09/14/21 20:09 Consultations 09/14/21 21:12 ED Decision to Admit Stat 09/14/21 22:50 Consult General Surgery Routine 09/17/21 09:15 Consult Nephrology Routine Procedures Performed Operation Date: 09/15/21 07:30 Actual Procedures p Laparoscopic Cholecystectomy - Hermelindo Bailey MD, FACS Ordered Studies 09/14/21 21:46 CT abd pelvis wo con [facility] Hospital Course (1) Sepsis: (2) Acute cholecystitis: 81 yo F w/ HTN, HLD, PVD, valvular heart disease (mild , mild MR TTE 2020), CKD (baseline creatinine 1.4), seizure disorder, hypothyroidism, iatrogenic vocal cord paralysis [post thyroidectomy] requiring temporary tracheostomy/PEG tube placement, chronic anemia [baseline hemoglobin 9] presented to ED 09/14 with complaint of chills/weakness/nausea/urinary frequency/flank pain for about a week associated with flu symptoms with myalgia and runny nose. She is being managed for the following: Sepsis Acute gangrenous cholecystitis Patient came in with flank pain and urinary frequency, did not complain much of abd. pain. Met sepsis criteria at presentation. Admitting CTAP was suggestive of acute cholecystitis Surgery consulted: Status post lap cholecystectomy with lysis of adhesions 09/15 (w/ Dr. Bailey), continued with Zosyn. On diet Plan to discharge on Augmentin. Continue supportive management, analgesics, antiemetics. Antibiotics. Will need 7 to 10 days of total antibiotic therapy through the discharge. Acute on chronic anemia Baseline hemoglobin level 9, patient is status post lap torrey 09/15 Hemoglobin dropped to 7.4 on 09/16 Multifactorial, likely postoperative blood loss versus hemodilution versus mu ltiple blood tests versus combination of them Status post 1 unit PRBC transfusion 09/16 Repeat hemoglobin 9.9 Hb stable. Monitor hemoglobin daily. AISHA over CKD - resolved Per admitting note, baseline creatinine around 1.4 Patient has history of CKD, follows w/ nephrology (Dr. Beasley as outpt) Creatinine up trended to 2.73 on 09/16, likely secondary to third spacing lead ing to prerenal --> lasix given, Cr still elevated at similar level next day --->Nephro consult 09/17. C/w home amlodipine; hold lasix and lisinopril. c/w IVF per nephro 09/19 Cr 1.2 09/19 Cr 1.0 Patient will need BMP weekly for next 3 weeks She will need to follow-up with nephrology in 2 to 3 weeks HTN Switch lisinopril from twice a day to only once a day, for now (given AISHA) Follow-up with primary care physician and/or nephrology Chronic medical conditions: HLD, PVD, seizure disorder, hypothyroidism, iatrogenic vocal cord paralysis Continue with home meds as appropriate DVT prophylaxis: Heparin subcu Full code Disposition: Plan to discharge to home with home health per CM. Home Health Attestation I certify that this patient is under my care and that I, or a physicians claims assistant working with me, had a face to-face encounter that meets the home health [id number] encounter requirements with this patient. The encounter with the patient was in whole, or in part, for the following medical condition, which is the primary reason for home health care (list medical condition): sepsis due to cholecystitis I certify that, based on my findings, the following services are medically nece [facility] home health services: My clinical findings support the need for the above services because: Home Safety Assessment OT Assess ADL Status and Restore Function w ADLs PT Assessment for Endurance / Balance / Strength Skilled Nsg Assessment Skilled Nsg Assess Pt Illness, Disease and Sx Monitoring Further, I certify that my clinical findings support that this patient is homebound (i.e. absences from home require considerable and taxing effort and are for medical reasons or [employer]ormon services or infrequently or of short duration when for other reasons) because: Transportation Assistance/Unable to Leave Home Unassisted Certification for Home Health Services: Based on the above findings, I certify that this patient is confined to the home and needs intermittent long term care, physical therapy and/or speech therapy or continues to need occupational therapy. The patient is under my care, and I have initiated the establishment of the plan of care. This patient will be followed by a physician who will periodically review the plan of care. Total Time Total Time Spent Total Time Spent (In Minutes): 40 Discharge Plan Discharge Items Patient Disposition: Home - Home Health Services Reason For Visit: SEPSIS Discharge Diagnosis: Sepsis secondary to acute gangrenous cholecystitis AISHA on CKD Activity: As commented below Lifting: No more than 10 pounds Bathing: No limitations Driving/Machine Use: Resume 3 days after discharge Non-emergency contact: Primary Care Provider Call non-emergency contact if: you have any medication questions, your symptoms worsen and your pain is not controlled Follow-up/Referrals: Hermelindo Bailey MD, FACS [Physician] - (Please call to make an appointment in 1-2 weeks) Julian Lentz MD [Primary Care Provider] - (Date & Time 09/21/2021 2:20 PM Provider Julian Lentz MD Department Family Medicine [facility] ) Diet: Regular Addtl Attending Provider Instructions: Follow-up with your primary care doctor, the appointment was scheduled for you for September 21. Finish antibiotic treatment with Augmentin, as prescribed. Follow-up with general surgery, Dr. Bailey, in 1 to 2 weeks. Make sure to read instructions from your surgeon below. For pain, take Tylenol 1000 mg 3 times a day as needed, maximal daily dose 3000 mg. For more severe pain, you can take oxycodone, as prescribed. For now, take lisinopril only once a day (instead of twice a day), until seen by your primary care doctor. In the meantime,increase your hydralazine 50 mg to 4 times a day. You will need blood work, BMP weekly for next 3 weeks. You will need to follow-up with your kidney doctor, in about 2-3 weeks. Lastly it is recommended that you take probiotics, to prevent any stomach upset from antibiotics. Addtl Data Collection Specialist Provider Instructions: SPECIAL CARE INSTRUCTIONS: * Cover incisions and change daily for comfort/drainage. * Expect some swelling and bruising. * You can take Tylenol as needed for pain. Call your doctor if: * Temperature above 101 degrees * Pain not relieved by pain medicine ordered * There is increased drainage or redness from any incision * You have any unanswered questions or concerns [phone]. FOLLOW UP VISIT: If not already scheduled, please call the office for a follow-up visit. OFFICE PHONE NUMBER: Dr. Bailey Office Pending Studies at Discharge: No Stand-Alone Forms: [employer], Smoking Cessation Medications and DC Order Prescriptions: New amoxicillin-pot clavulanate [Augmentin] 875-125 mg tablet 1 tab PO BID 6 Days Qty: 12 RF: 0 oxycodone 5 mg tablet 5 mg PO Q8H PRN (Reason: pain) Qty: 5 RF: 0 Continued levothyroxine 175 mcg tablet 175 mcg PO DAILY RF: 0 amlodipine 5 mg tablet 5 mg PO DAILY RF: 0 aspirin 81 mg Tablet,Delayed Release (Dr/Ec) 81 mg PO DAILY RF: 0 carvedilol 25 mg tablet 25 mg PO BID RF: 0 fenofibrate micronized 134 mg capsule 134 mg PO DAILY RF: 0 escitalopram oxalate 20 mg tablet 20 mg PO DAILY RF: 0 ketoconazole 2 % shampoo 1 applic TOPICAL UD RF: 0 phenytoin sodium extended 100 mg capsule 300 mg PO AMHS RF: 0 hydralazine 50 mg tablet 50 mg PO TID RF: 0 furosemide 20 mg tablet 20 mg PO DAILY RF: 0 multivitamin Tablet 1 tab PO DAILY RF: 0 cyanocobalamin (vitamin B-12) 50 mcg Tablet 0 mcg PO DAILY RF: 0 Changed lisinopril 20 mg tablet 20 mg PO QAM Qty: 0 RF: 0 Discharge Orders: Discharge Order (Routine); Ordered 09/20/21 Ordered By: Greg Polanco Admission Data Admit Date/Time: 09/14/21 21:59 Attending Provider: Greg Polanco Admit Provider: Greg Middleton Primary Care Provider: Julian Lentz Other Providers: Greg Middleton ; Hermelindo Bailey ; Renny Dent ; Cesar Wise ; Wilfrid Nice Jr ; Greg Zarate ; Jimmy Pathak ; Isela Ortega ; Paul Wayne ; Wade Louise ; Dora Olmstead ; [facility] ; Julio Sood
[2021-09-20] MEDS: FUROSEMIDE 20 MG TAB PO SCH (11:48)
== END 2021-09-20 11:52 | disposition home health service (06) | DRG 854 ==
LOC: ED 14:12 → EDINP 21:59 → SUATTDRO 21:59 → 2N 23:52
DX: N18.9 Chronic kidney disease, unspecified; A41.9 Sepsis, unspecified organism; Z79.82 Long term (current) use of aspirin; I12.9 Hypertensive chronic kidney disease with stage 1 through stage 4 chronic kidney disease, or unspecified chronic kidney disease; E78.5 Hyperlipidemia, unspecified; K81.0 Acute cholecystitis; G40.909 Epilepsy, unspecified, not intractable, without status epilepticus; N17.9 Acute kidney failure, unspecified; N39.0 Urinary tract infection, site not specified; D64.9 Anemia, unspecified; I73.9 Peripheral vascular disease, unspecified; K57.92 Diverticulitis of intestine, part unspecified, without perforation or abscess without bleeding; E03.9 Hypothyroidism, unspecified; J38.00 Paralysis of vocal cords and larynx, unspecified

== ENCOUNTER 2023-01-12 15:26 | Inpatient (IN) ==
[2023-01-12] MEDS ORDERED: ALBUT/IPRATROP 3MG/0.5MG NEB 3 ML VIAL NEB STA (15:37)
--- NOTE | 2023-01-12 15:45 | Emergency Department Note ---
Impression & Plan Dyspnea, Anemia, Elevated brain natriuretic peptide (BNP) level ED Provider Note ED Provider Note NAME: JONATHON OAKLEY AGE:82 SEX: Female : 1940 ARRIVES VIA: EMS INFORMANT: Patient ED PROVIDER(s): Edna Daley DO CHIEF COMPLAINT: Persistent cough, shortness of breath HPI: This is an 82-year-old female brought in by EMS due to persistent cough, increased trouble breathing, increased fatigue and weakness that began 3 weeks ago. Patient states she thought initially she had a cold. She states after a week she went and saw her PCP and was given an inhaler, steroids, and antibiotics. She states she did feel improved for a time however once these were completed her symptoms worsened again. She states she has never been able to clear the cough. She states cough is intermittently productive of a clear sputum, no hemoptysis. She denies fevers, chills, chest pain, abdominal pain, vomiting or diarrhea. Patient denies any history of asthma or tobacco abuse. She denies any history of heart problems. States no other change in her medications. No recent lower extremity edema. PAST MEDICAL HISTORY:See Below PAST SURGICAL HISTORY:See Below FAMILY HISTORY:See Below SOCIAL HISTORY:See Below HOME MEDICATIONS:See Below ALLERGIES:See Below VITALS:See Below PHYSICAL EXAMINATION: GENERAL: alert, well appearing, well nourished, no distress, non-toxic EYE EXAM: normal conjunctiva, PERRL and EOM's grossly intact OROPHARYNX: no exudate, no erythema, lips, buccal mucosa, and tongue normal and mucous membranes are moist NECK: supple, no nuchal rigidity, no adenopathy, non-tender LUNGS: Clear to auscultation. Normal chest wall mechanics, no w/r/r HEART: no murmurs, S1 normal and S2 normal ABDOMEN: abdomen soft, non-tender, normo-active bowel sounds, no masses, no rebound or guarding. BACK: Back is symmetrical on inspection and there is no deformity, no midline tenderness, no CVA tenderness. SKIN: no rashes, petechiae, orbruising UPPER EXTREMITIES: upper extremities are grossly normal. FROM, nml pulses b/l. LOWER EXTREMITIES: No pitting edema. FROM, nml pulses b/l. NEURO EXAM: Normal sensorium, cranial nerves II-XII grossly intact, normal speech, no facial droop,nogross weakness of arms, no gross weakness of legs. Gross sensation intact. No ataxia. Vital Signs: reviewed and remarkable Differential Diagnosis: Differential diagnoses includes but is not limited to pneumonia, bronchitis, COPD/Asthma exacerbation, pneumothorax, pulmonary embolism, congestive heart failure, acute coronary syndrome MEDICAL DECISION MAKING: This is an 82-year-old female presents emergency department via EMS due to concern for persistent cough, increased fatigue, and difficulty breathing. Shahzad lance said symptoms worsening over the course of the last 3 weeks. Patient was previously treated as an outpatient for possible URI. She was afebrile and hemodynamically stable, she was noted to be mildly hypertensive. Labs drawn and sent, IV established, EKG performed and interpreted by me at bedside, chest x- ray performed and interpreted by me at bedside, patient monitored on telemetry. Nasal swab also drawn and sent. Patient's lab reveals anemia, slightly worse compared to prior although patient denied melena or hematochezia, and she denied bleeding from any other source. Patient does have prior documented history of anemia. No obvious infiltrate or edema noted on chest x-ray, however BNP was elevated. I suspect initial URI may place additional stress across her cardiopulmonary system perhaps pushing her into evolving CHF or pulmonary edema. I also feel her worsening anemia is likely contributing to her symptoms. Patient was dyspneic with conversation and exertion although not overtly hypoxic while here. No evidence of lower extremity edema. Patient does take furosemide daily and was given additional IV dose here. I did review her prior cardiology note and last echo. I discussed all results with the patient at bedside as well as need for additional evaluation and management. Case discussed with hospitalist team for additional evaluation. Consultation(s): 1829: Discussed with Robbin Gandhi hospitalist team. ER Treatment Provided: See below 1739: Patient updated on results. Patient states she is feeling improved following nebulizer treatment. Patient states she does follow with Dr. Silva of cardiology and had an echo performed last year. She denies any prior history of congestive heart failure. 1814: Patient updated on additional results. Patient denies any black or bloody stools, states she does have a history of anemia, and has been significantly fatigued recently. Diagnostics Interpreted By Me: -ECG: Normal sinus at 67, normal QRS and QTc, normal axis, no acute ST/T wave changes, baseline artifact noted -Cardiac Monitoring: An order was placed for continuous cardiac monitoring. The monitor shows a rate of 76 with normal sinus rhythm. -Laboratory studies: As stated above and show below. -Imaging studies: X-ray Chest: A single view study of the chest was reviewed and was negative for cardiomegaly, focal infiltrate, effusion, pulmonary edema, or wide mediastinum. Triage Nursing Note Reviewed Prior/Outside Records Reviewed -most recent cardiology office visit and last echo Procedures: [] Critical Care: [] Past Med/Surg History Medical History CKD (chronic kidney disease) stage 3, GFR 30-59 ml/min Dyslipidemia Hypertension Hypothyroidism, postablative Mitral valve regurgitation Surgical History S/P laparoscopic cholecystectomy (09/15/21) Laparoscopic cholecystectomy with lysis of adhesions. Dr. Bailey 09/15/2021 Family History Other Family history non-contributory Social History Smoking Status: Never smoker Second Hand Exposure: No; Hx Alcohol Use: No Hx Substance Use: No Preferred Language: Occitan Communication Ability: Effective Rug Measurer Required: No Beliefs That Will Affect Care: None marital status: / Current Living Situation: Alone Feels Safe at Home: Yes Assistive Devices: Denture - Upper, Glasses and Walker Allergies Allergies Allergy/AdvReac Type Severity Reaction Status Date / Time No Known Allergies Allergy Verified 01/12/23 18:12 Home Meds Home Medications Medication Instructions Recorded Confirmed amlodipine 5 mg tablet 5 mg PO QAM 06/13/20 01/12/23 aspirin 81 mg tablet,delayed 81 mg PO DAILY 06/13/20 01/12/23 release carvedilol 25 mg tablet 25 mg PO BID 06/13/20 01/12/23 escitalopram oxalate 20 mg tablet 20 mg PO DAILY 06/13/20 01/12/23 fenofibrate micronized 134 mg 134 mg PO DAILY 06/13/20 01/12/23 capsule furosemide 20 mg tablet 20 mg PO DAILY 06/13/20 01/12/23 hydralazine 50 mg tablet 50 mg PO TID 06/13/20 01/12/23 ketoconazole 2 % shampoo 1 applic topical UD 06/13/20 01/12/23 levothyroxine 175 mcg tablet 175 mcg PO DAILYBB 06/13/20 01/12/23 phenytoin sodium extended 100 mg 300 mg PO AMHS 06/13/20 01/12/23 capsule buspirone 5 mg tablet 5 mg PO BID 01/12/23 01/12/23 calcium carbonate 600 mg-vitamin 1 tab PO QAM 01/12/23 01/12/23 D3 5 mcg (200 unit) tablet cyanocobalamin (vitamin B-12) 1,000 mcg PO DAILY 01/12/23 01/12/23 1,000 mcg tablet ferrous sulfate 325 mg (65 mg 325 mg PO BID 01/12/23 01/12/23 iron) tablet ketoconazole 2 % shampoo 1 applic topical Q3D PRN Skin 01/12/23 01/12/23 Irritation zinc acetate 50 mg (zinc) capsule 50 mg PO QAM 01/12/23 01/12/23 Previous Rx's Medication Instructions Recorded lisinopril 20 mg tablet 20 mg PO QAM #0 tabs 09/19/21 Results & Data (ED) Vital Signs Vital Signs - 24 hr 01/12/23 15:33 01/12/23 16:26 01/12/23 18:34 Temperature 36.9 C Temperature Source Temporal Artery Scan Pulse Rate 77 71 Pulse Rate [Apical] 68 Respiratory Rate 18 16 Respiratory Effort / Characteristics Spontaneous Respiratory Depth Normal Blood Pressure 180/130 H Blood Pressure [Right Arm] Blood Pressure Mean 146 Blood Pressure Mean [Right Arm] Pulse Oximetry 97 97 Oxygen Delivery Method Room Air Room Air Sepsis Recent Fever Within 48 Hours No Sepsis New/Unexplained Change in Mental Status No Sepsis Action Taken by Nursing No Action Required 01/12/23 19:00 Temperature Temperature Source Pulse Rate Pulse Rate [Apical] 76 Respiratory Rate 15 Respiratory Effort / Characteristics Non-Labored Spontaneous Respiratory Depth Normal Blood Pressure Blood Pressure [Right Arm] 233/100 H Blood Pressure Mean Blood Pressure Mean [Right Arm] 144 Pulse Oximetry 96 Oxygen Delivery Method Room Air Sepsis Recent Fever Within 48 Hours Sepsis New/Unexplained Change in Mental Status Sepsis Action Taken by Nursing Laboratory Data 01/12/23 15:48 01/12/23 15:48 Lab Results 01/12/23 01/12/23 01/12/23 Range/Units 15:48 15:48 15:48 WBC 4.78 L (4.8-10.8) K/ul RBC 2.44 L (4.20-5.40) M/uL Hgb 7.5 L (12.0-16.0) g/dl Hct 21.6 L (37.0-47.0) % MCV 88.5 (80.0-100.0) fL MCH 30.7 (25.0-34.0) pg MCHC 34.7 (32.0-36.0) g/dL RDW Std Deviation 47.6 H (36.4-46.3) fL RDW Coeff of Gee 14.7 H (11.5-14.5) % Plt Count 203 (130-400) K/uL MPV 9.4 (9.4-12.4) fL Immature Gran % (Auto) 0.6 % Neut % (Auto) 67.2 % Lymph % (Auto) 23.8 % Smith % (Auto) 5.9 % Eos % (Auto) 1.9 % Baso % (Auto) 0.6 % Neut # (Auto) 3.21 (1.40-6.50) K/uL Lymph # (Auto) 1.14 L (1.2-3.4) K/uL Smith # (Auto) 0.28 (0.11-0.59) K/uL Eos # (Auto) 0.09 (0-0.50) K/uL Baso # (Auto) 0.03 (0-0.2) K/uL Immature Gran # (Auto) 0.03 (0.01-0.20) K/uL Microcytosis Present Sodium 143 (136-145) mmol/L Potassium 4.1 (3.5-5.1) mmol/L Chloride 110 H (98-107) mmol/L Carbon Dioxide 26 (21-32) mmol/L Anion Gap 7 (3-11) BUN 41 H (6-23) mg/dl Creatinine 1.45 H (0.6-1.2) mg/dl Est Cr Clr Drug Dosing 27.5 ml/min Est GFR ( Amer) 38.2 ml/min Est GFR (Non-Af Amer) 33.0 ml/min BUN/Creatinine Ratio 28.3 H (10-20) Glucose 97 (70-99(Fasting)) mg/dl Calcium 8.8 (8.5-10.1) mg/dl Magnesium 1.8 (1.7-2.4) mg/dl Total Bilirubin 0.3 (0.2-1.0) mg/dl AST 16 (13-39) U/L ALT 10 (7-52) U/L Alkaline Phosphatase 39 (34-104) U/L Troponin I High Sens 15.6 H (0-14) pg/ml B-Natriuretic Peptide 511 H (0-100) pg/ml Total Protein 6.7 (6.0-8.3) gm/dl Albumin 3.8 (3.4-5.0) gm/dl Globulin 2.9 (2.5-4.0) gm/dl Albumin/Globulin Ratio 1.3 (0.9-2) TSH (0.300-4.500) uIu/ml Adenovirus (PCR) (NotDetected) B. pertussis DNA (PCR) (NotDetected) B.parapertussis DNA PCR (NotDetected) C. pneumoniae DNA (PCR) (NotDetected) Coronavirus OC43 (PCR) (NotDetected) Coronavirus HKU1 (PCR) (NotDetected) Coronavirus 229E (PCR) (NotDetected) SARS-CoV-2 (PCR) (NotDetected) Coronavirus NL63 (PCR) (NotDetected) Human Metapneumovir PCR (NotDetected) Influenza Type A (PCR) (NotDetected) Influenza Type B (PCR) (NotDetected) M. pneumoniae (PCR) (NotDetected) Parainfluenza 1 (PCR) (NotDetected) Parainfluenza 2 (PCR) (NotDetected) Parainfluenza 3 (PCR) (NotDetected) Parainfluenza 4 (PCR) (NotDetected) RSV (PCR) (NotDetected) Entero/Rhino (PCR) (NotDetected) 01/12/23 01/12/23 Range/Units 15:48 16:50 WBC (4.8-10.8) K/ul RBC (4.20-5.40) M/uL Hgb (12.0-16.0) g/dl Hct (37.0-47.0) % MCV (80.0-100.0) fL MCH (25.0-34.0) pg MCHC (32.0-36.0) g/dL RDW Std Deviation (36.4-46.3) fL RDW Coeff of Gee (11.5-14.5) % Plt Count (130-400) K/uL MPV (9.4-12.4) fL Immature Gran % (Auto) % Neut % (Auto) % Lymph % (Auto) % Smith % (Auto) % Eos % (Auto) % Baso % (Auto) % Neut # (Auto) (1.40-6.50) K/uL Lymph # (Auto) (1.2-3.4) K/uL Smith # (Auto) (0.11-0.59) K/uL Eos # (Auto) (0-0.50) K/uL Baso # (Auto) (0-0.2) K/uL Immature Gran # (Auto) (0.01-0.20) K/uL Microcytosis Sodium (136-145) mmol/L Potassium (3.5-5.1) mmol/L Chloride (98-107) mmol/L Carbon Dioxide (21-32) mmol/L Anion Gap (3-11) BUN (6-23) mg/dl Creatinine (0.6-1.2) mg/dl Est Cr Clr Drug Dosing ml/min Est GFR ( Amer) ml/min Est GFR (Non-Af Amer) ml/min BUN/Creatinine Ratio (10-20) Glucose (70-99(Fasting)) mg/dl Calcium (8.5-10.1) mg/dl Magnesium (1.7-2.4) mg/dl Total Bilirubin (0.2-1.0) mg/dl AST (13-39) U/L ALT (7-52) U/L Alkaline Phosphatase (34-104) U/L Troponin I High Sens (0-14) pg/ml B-Natriuretic Peptide (0-100) pg/ml Total Protein (6.0-8.3) gm/dl Albumin (3.4-5.0) gm/dl Globulin (2.5-4.0) gm/dl Albumin/Globulin Ratio (0.9-2) TSH 1.728 (0.300-4.500) uIu/ml Adenovirus (PCR) Not Detected (NotDetected) B. pertussis DNA (PCR) Not Detected (NotDetected) B.parapertussis DNA PCR Not Detected (NotDetected) C. pneumoniae DNA (PCR) Not Detected (NotDetected) Coronavirus OC43 (PCR) Not Detected (NotDetected) Coronavirus HKU1 (PCR) Not Detected (NotDetected) Coronavirus 229E (PCR) Not Detected (NotDetected) SARS-CoV-2 (PCR) Not Detected (NotDetected) Coronavirus NL63 (PCR) Not Detected (NotDetected) Human Metapneumovir PCR Not Detected (NotDetected) Influenza Type A (PCR) Not Detected (NotDetected) Influenza Type B (PCR) Not Detected (NotDetected) M. pneumoniae (PCR) Not Detected (NotDetected) Parainfluenza 1 (PCR) Not Detected (NotDetected) Parainfluenza 2 (PCR) Not Detected (NotDetected) Parainfluenza 3 (PCR) Not Detected (NotDetected) Parainfluenza 4 (PCR) Not Detected (NotDetected) RSV (PCR) Not Detected (NotDetected) Entero/Rhino (PCR) Not Detected (NotDetected) Administered Medications Sodium Chloride (Nss 1000ml) 1,000 mls @ 65 mls/hr IV .[id number] [facility] Stop: 01/13/23 19:09 Last Admin: 01/12/23 16:14 Dose: 125 mls/hr Documented By: AMS Discontinued Medications Albuterol (Albut/Ipratrop 3mg/0.5mg Neb 3 Ml Vial) 3 ml NEB NOW STA; Protocol Stop: 01/12/23 15:38 Last Admin: 01/12/23 16:14 Dose: 3 ml Documented By: AMS Furosemide (Furosemide Inj 20 Mg/2 Ml Vial) 20 mg IV ONE ONE Stop: 01/12/23 18:20 Last Admin: 01/12/23 19:18 Dose: 20 mg Documented By: AMS Imaging Data Radiologist's Impression: Chest X-Ray 01/12/23 15:38 XR chest 1V portable HISTORY: cough COMPARISON: Chest 08/12/2022. FINDINGS: No pneumothorax. No pleural effusions. The heart remains mildly enlarged. No new focal lung consolidations to suggest a pneumonia. No evidence for pulmonary edema. There are low lung volumes with mild elevation the right hemidiaphragm, unchanged. A few bibasilar linear densities favor subsegmental atelectasis or scarring. IMPRESSION: No significant change compared to the prior study. No acute process. ACT 112: Negative or not required by law. Electronically signed by: Reynaldo Randhawa M.D. 01/12/2023 4:09 PM Discharge Plan Visit Data Chief Complaint: Congestion Stated Complaint: CONGESTION ED Provider: Edna Daley Discharge Problem: Dyspnea, Anemia, Elevated brain natriuretic peptide (BNP) level Forms Stand Alone Forms: [facility] Prescriptions Prescriptions: No Action levothyroxine 175 mcg tablet 175 mcg PO DAILYBB amlodipine 5 mg tablet 5 mg PO QAM aspirin 81 mg Tablet,Delayed Release (Dr/Ec) 81 mg PO DAILY carvedilol 25 mg tablet 25 mg PO BID fenofibrate micronized 134 mg capsule 134 mg PO DAILY escitalopram oxalate 20 mg tablet 20 mg PO DAILY ketoconazole 2 % shampoo 1 applic TOPICAL UD Rx Instructions: USE WITH EACH HAIR - WASHING phenytoin sodium extended 100 mg capsule 300 mg PO AMHS hydralazine 50 mg tablet 50 mg PO TID furosemide 20 mg tablet 20 mg PO DAILY lisinopril 20 mg tablet 20 mg PO QAM Qty: 0 0RF cyanocobalamin (vitamin B-12) 1,000 mcg Tablet 1,000 mcg PO DAILY zinc acetate 50 mg (zinc) Capsule 50 mg PO QAM ferrous sulfate 325 mg (65 mg iron) Tablet 325 mg PO BID calcium carbonate-vitamin D3 [Calcium + D] 600 mg-5 mcg (200 unit) Tablet 1 tab PO QAM buspirone 5 mg tablet 5 mg PO BID ketoconazole 2 % shampoo 1 applic TOPICAL Q3D PRN (Reason: Skin Irritation) Referrals Referrals: Julian Lentz MD [Primary Care Provider] -
--- NOTE | 2023-01-12 16:10 | XRay Report ---
XR chest 1V portable HISTORY: cough COMPARISON: Chest 08/12/2022. FINDINGS: No pneumothorax. No pleural effusions. The heart remains mildly enlarged. No new focal lung consolidations to suggest a pneumonia. No evidence for pulmonary edema. There are low lung volumes w ith mild elevation the right hemidiaphragm, unchanged. A few bibasilar linear densities favor subsegm ental atelectasis or scarring. IMPRESSION: No significant change compared to the prior study. No acute process. ACT 112: Negative or not required by law. Electronically signed by: Reynaldo Randhawa M.D. 01/12/2023 4:09 PM
[2023-01-12] MEDS: SODIUM CHLORIDE 0.9% 1000ML 1,000 ML IV SCH (16:14)
[2023-01-12 16:27] LABS: Basophils # (auto) 0.03 K/uL (0-0.2); Basophils % (auto) 0.6 %; Eosinophils # (auto) 0.09 K/uL (0-0.50); Eosinophils % (auto) 1.9 %; Hematocrit (blood only) 21.6 % (37.0-47.0); Hemoglobin 7.5 g/dl (12.0-16.0); Immature Granulocytes # (auto) 0.03 K/uL (0.01-0.20); Immature Granulocytes % (auto) 0.6 %; Lymphocytes # (auto) 1.14 K/uL (1.2-3.4); Lymphocytes % (auto) 23.8 %; Mean Corpuscular Hemoglobin 30.7 pg (25.0-34.0); Mean Corpuscular Hgb Conc 34.7 g/dL (32.0-36.0); Mean Corpuscular Volume 88.5 fL (80.0-100.0); Mean Platelet Volume 9.4 fL (9.4-12.4); Monocytes # (auto) 0.28 K/uL (0.11-0.59); Monocytes % (auto) 5.9 %; Neutrophils # (auto) 3.21 K/uL (1.40-6.50); Neutrophils % (auto) 67.2 %; Platelet Count 203 K/uL (130-400); RDW Coefficient of Variation 14.7 % (11.5-14.5); RDW Standard Deviation 47.6 fL (36.4-46.3); Red Blood Count 2.44 M/uL (4.20-5.40); White Blood Count 4.78 K/ul (4.8-10.8)
[2023-01-12 16:44] LABS: Albumin Globulin Ratio 1.3 (0.9-2); Albumin Level 3.8 gm/dl (3.4-5.0); BUN Creatinine Ratio 28.3 (10-20); Bilirubin,Total 0.3 mg/dl (0.2-1.0); Calcium 8.8 mg/dl (8.5-10.1); Creatinine Clr Calc Pharmacy 27.5 ml/min; Est GFR (African American) 38.2 ml/min; Globulin 2.9 gm/dl (2.5-4.0); Magnesium 1.8 mg/dl (1.7-2.4); Potassium 4.1 mmol/L (3.5-5.1); Total Protein 6.7 gm/dl (6.0-8.3)
[2023-01-12 16:50] LABS: Troponin I High Sensitivity 15.6 pg/ml (0-14)
[2023-01-12 16:59] LABS: Microcytosis Present
[2023-01-12 18:04] LABS: Adenovirus PCR Not Detected (NotDetected); Bordetella parapertussis PCR Not Detected (NotDetected); Bordetella pertussis PCR Not Detected (NotDetected); Chlamydia pneumoniae PCR Not Detected (NotDetected); Coronavirus 229E PCR Not Detected (NotDetected); Coronavirus CoV-2 (COVID19)PCR Not Detected (NotDetected); Coronavirus HKU1 PCR Not Detected (NotDetected); Coronavirus NL63 PCR Not Detected (NotDetected); Coronavirus OC43PCR Not Detected (NotDetected); Human Metapneumovirus PCR Not Detected (NotDetected); Influenza A PCR Not Detected (NotDetected); Influenza B PCR Not Detected (NotDetected); Mycoplasma pneumoniae PCR Not Detected (NotDetected); Parainfluenza Virus 1 PCR Not Detected (NotDetected); Parainfluenza Virus 2 PCR Not Detected (NotDetected); Parainfluenza Virus 3 PCR Not Detected (NotDetected); Parainfluenza Virus 4 PCR Not Detected (NotDetected); Respiratory Syncytial VirusPCR Not Detected (NotDetected); Rhinovirus/Enterovirus PCR Not Detected (NotDetected)
[2023-01-12] MEDS ORDERED: FUROSEMIDE INJ 20 MG/2 ML VIAL IV ONE (18:19)
[2023-01-12] MEDS ORDERED: POLYETHYLENE (MIRALAX) 17 GM PACK PO PRN (18:37)
[2023-01-12] MEDS ORDERED: MAGNESIUM HYDROXIDE SUSP 30 ML UDC PO PRN (18:37)
[2023-01-12] MEDS ORDERED: ALUMINUM/MAGNESIUM SUSP 30 ML UDC PO PRN (18:37)
[2023-01-12] MEDS ORDERED: ACETAMINOPHEN 325 MG TAB PO PRN (18:37)
[2023-01-12] MEDS ORDERED: ONDANSETRON INJ 2 MG/ML 2 ML VIAL IV PRN (18:37)
--- NOTE | 2023-01-12 19:07 | History & Physical Report ---
Date of Service January 12, 2023 Assessment & Plan (1) Elevated brain natriuretic peptide (BNP) level: Plan Recent history of flulike illness Persistent cough/weakness Patient coming with persistent cough for 3 weeks ago LIVE OUT NANNY after " cold" Patient reports decreasing appetite for about the same duration. Denies any new sore throat or fever or chills. Echo in March 15, 2022 with EF of 60%, enlarged left atrium, grade 1 diastolic dysfunction, moderate MR. At admission, WBC fairly WNL, BNP elevated, EKG with sinus rhythm with PACs, chest x-ray with no acute findings. Viral panel negative. TSH WNL. Patient is afebrile, hemodynamically stable, will continue with symptomatic management with Tessalon Perles/Mucinex, PT/OT. Hypertensive urgency: Blood pressure elevated in the ED, likely secondary to missing dose for afternoon blood pressure medication. We will resume her home blood pressure medication. Continue to monitor. Low hemoglobin: Hemoglobin of 7.5 at presentation, baseline hemoglobin around 9, denies any issues with bowel movements. Will get FOBT. Follow-up with hemoglobin in the a.m. Iron profile and B12/folate level in AM. Aspirin on hold until fobt back and negative or Hb deemed stable. Elevated BNP: Could be a chronic elevation, on outpatient chart review could not find another BNP level to compare. BNP elevated at 511 at presentation, outpatient echo as above. Patient does not look volume overloaded/no crackles or BLE edema on presentation. Will monitor over telemetry, continue to monitor closely. Other chronic medical conditions: History of seizureresume home Dilantin CAD/HLD/depression --continue with home medications as able. 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 Per patient, she suffered from " cold" about 3 weeks ago and then followed her sore throat and cough. She was treated by her PCP with inhalers/steroids/antibiotic which seem to have improved her symptoms and then as she was done with the treatment course, her cough came back. Patient reports whitish mucus with the cough. Patient denies any fever or chills or new sore throat or chest pain or palpitation or belly pain. Patient denies any nausea or vomiting. Patient reports decreased appetite since 3 weeks. Patient denies any pain or burning with passing urine or any diarrhea. Patient reports being weak and tired and wanting to sleep all the time. Patient denies smoking/use of alcohol or recreational drugs. CODE STATUS: DNR/DNI as per my discussion with the patient. No personal history of NM or stroke or blood clot per patient. Family history negative for NM or stroke or blood clot per patient. She states that her brother had colon cancer. Medications were discussed with the patient. Plan of care discussed with the patient. Allergies Allergy/AdvReac Type Severity Reaction Status Date / Time No Known Allergies Allergy Verified 01/12/23 18:12 Home Medications Medication Instructions Recorded Confirmed Type amlodipine 5 mg tablet 5 mg PO QAM 06/13/20 01/12/23 History aspirin 81 mg tablet,delayed 81 mg PO DAILY 06/13/20 01/12/23 History release carvedilol 25 mg tablet 25 mg PO BID 06/13/20 01/12/23 History escitalopram oxalate 20 mg tablet 20 mg PO DAILY 06/13/20 01/12/23 History fenofibrate micronized 134 mg 134 mg PO DAILY 06/13/20 01/12/23 History capsule furosemide 20 mg tablet 20 mg PO DAILY 06/13/20 01/12/23 History hydralazine 50 mg tablet 50 mg PO TID 06/13/20 01/12/23 History ketoconazole 2 % shampoo 1 applic topical UD 06/13/20 01/12/23 History levothyroxine 175 mcg tablet 175 mcg PO DAILYBB 06/13/20 01/12/23 History phenytoin sodium extended 100 mg 300 mg PO AMHS 06/13/20 01/12/23 History capsule lisinopril 20 mg tablet 20 mg PO QAM #0 tabs 09/19/21 01/12/23 Rx buspirone 5 mg tablet 5 mg PO BID 01/12/23 01/12/23 History calcium carbonate 600 mg-vitamin 1 tab PO QAM 01/12/23 01/12/23 History D3 5 mcg (200 unit) tablet cyanocobalamin (vitamin B-12) 1,000 mcg PO DAILY 01/12/23 01/12/23 History 1,000 mcg tablet ferrous sulfate 325 mg (65 mg 325 mg PO BID 01/12/23 01/12/23 History iron) tablet ketoconazole 2 % shampoo 1 applic topical Q3D PRN Skin 01/12/23 01/12/23 History Irritation zinc acetate 50 mg (zinc) capsule 50 mg PO QAM 01/12/23 01/12/23 History Past Med/Surg History Medical History CKD (chronic kidney disease) stage 3, GFR 30-59 ml/min Dyslipidemia Hypertension Hypothyroidism, postablative Mitral valve regurgitation Surgical History S/P laparoscopic cholecystectomy (09/15/21) Laparoscopic cholecystectomy with lysis of adhesions. Dr. Bailey 09/15/2021 Family History Other Family history non-contributory Social History Smoking Status: Never smoker Second Hand Exposure: No; Hx Alcohol Use: No Hx Substance Use: No Preferred Language: Thai Communication Ability: Effective Putty Remover Required: No Beliefs That Will Affect Care: None marital status: / Current Living Situation: Alone Feels Safe at Home: Yes Assistive Devices: Denture - Upper, Glasses and Walker Review of Systems Review of Systems: Negative otherwise mentioned in HPI. Physical Exam Physical Exam: GENERAL: Alert and oriented x3. NAD, on RA. HEENT: No pallor, no icterus. Pupils equal, round and reactive to light. Oral mucosa moist. Throat exam - nl mucosa. NECK: No JVD, no neck masses. HEART: S1 and S2 heard. Regular rate and rhythm. No murmur, no gallop. RESPIRATORY SYSTEM: Normal AP diameter. No accessory muscle use. No wheezing, no crackles. ABDOMEN: Soft, bowel sounds present, nontender, no distention. CENTRAL NERVOUS SYSTEM: No facial droop. Speech is clear. Obeys simple commands. Moves extremities. EXTREMITIES: No edema, no erythema seen. Results & Data Results & Data Vital Signs (Past 12 Hours) Vital Signs Temp Pulse Pulse Resp BP Pulse Ox O2 Del Method 01/12/23 18:34 68 16 97 Room Air 01/12/23 16:26 71 01/12/23 15:33 36.9 C 77 18 180/130 H 97 Room Air Code Status & VTE Plan VTE Prophylaxis Plan VTE Prophylaxis will be ordered: Yes
[2023-01-12] MEDS: LABETALOL HCL IV 5 MG/ML 20ML IV PRN (21:15)
[2023-01-12] MEDS: BENZONATATE 100 MG CAPSULE PO SCH (22:13)
[2023-01-12] MEDS: guaiFENesin 600 MG TABCR PO SCH (22:13)
[2023-01-12] MEDS: hydrALAZINE TAB 50 MG TAB PO SCH (22:22)
[2023-01-12] MEDS: PHENYTOIN SODIUM ER 100 MG CAP PO SCH (22:23)
[2023-01-12] MEDS: busPIRone 5 MG TAB PO SCH (22:23)
[2023-01-12] MEDS: carvediloL 25 MG TAB PO SCH (22:23)
[2023-01-12] MEDS: FERROUS SULFATE 325 MG TAB PO SCH (22:24)
[2023-01-13] MEDS: SODIUM CHLORIDE 0.9% 1000ML 1,000 ML IV SCH (03:30)
[2023-01-13] MEDS: LABETALOL HCL IV 5 MG/ML 20ML IV PRN (03:37)
[2023-01-13] MEDS: LEVOTHYROXINE SODIUM 175 MCG TABLET PO SCH (06:13)
[2023-01-13] MEDS ORDERED: hydrALAZINE HCL 20 MG/ML VIAL IV STA (06:31)
[2023-01-13 07:15] LABS: Hematocrit (blood only) 23.5 % (37.0-47.0); Hemoglobin 8.2 g/dl (12.0-16.0); Mean Corpuscular Hemoglobin 30.9 pg (25.0-34.0); Mean Corpuscular Hgb Conc 34.9 g/dL (32.0-36.0); Mean Corpuscular Volume 88.7 fL (80.0-100.0); Platelet Count 184 K/uL (130-400); RDW Coefficient of Variation 14.7 % (11.5-14.5); RDW Standard Deviation 47.8 fL (36.4-46.3); Red Blood Count 2.65 M/uL (4.20-5.40); White Blood Count 5.04 K/ul (4.8-10.8)
[2023-01-13 08:22] LABS: BUN Creatinine Ratio 28.7 (10-20); Calcium 8.5 mg/dl (8.5-10.1); Creatinine Clr Calc Pharmacy 31.9 ml/min; Est GFR (African American) 47.1 ml/min; Est GFR (Non-African American) 40.6 ml/min; Magnesium 1.7 mg/dl (1.7-2.4); Potassium 3.9 mmol/L (3.5-5.1)
[2023-01-13] MEDS: lisinopril 20 MG TAB PO SCH (08:31)
[2023-01-13] MEDS: hydrALAZINE TAB 50 MG TAB PO SCH ×3 (08:31→20:52)
[2023-01-13] MEDS: guaiFENesin 600 MG TABCR PO SCH ×2 (08:31→20:52)
[2023-01-13] MEDS: amLODIPine BESYLATE 5 MG TAB PO SCH (08:31)
[2023-01-13] MEDS: CALCIUM 600MG + VIT D 400 IU TAB PO SCH (08:31)
[2023-01-13] MEDS: BENZONATATE 100 MG CAPSULE PO SCH ×3 (08:31→20:51)
[2023-01-13] MEDS: busPIRone 5 MG TAB PO SCH ×2 (08:32→20:51)
[2023-01-13] MEDS: FENOFIBRATE NANOCRYSTALLIZED 145 MG TABLET PO SCH (08:32)
[2023-01-13] MEDS: CYANOCOBALAMIN (B-12) 500 MCG TABLET PO SCH (08:32)
[2023-01-13] MEDS: FERROUS SULFATE 325 MG TAB PO SCH ×2 (08:32→20:51)
[2023-01-13] MEDS: ESCITALOPRAM OXALATE 20 MG TAB PO SCH (08:32)
[2023-01-13] MEDS: PHENYTOIN SODIUM ER 100 MG CAP PO SCH ×2 (08:32→20:52)
[2023-01-13] MEDS: carvediloL 25 MG TAB PO SCH ×2 (08:34→20:51)
--- NOTE | 2023-01-13 10:56 | Electrocardiogram Report ---
Test Reason : Blood Pressure : / mmHG Vent. Rate : 067 BPM Atrial Rate : 067 BPM P-R Int : 168 ms QRS Dur : 100 ms QT Int : 454 ms P-R-T Axes : 000 -19 058 degrees QTc Int : 479 ms Poor data quality, interpretation may be adversely affected Sinus rhythm with Premature atrial complexes Voltage criteria for left ventricular hypertrophy Nonspecific ST abnormality Abnormal ECG When compared with ECG of 12-AUG-2022 13:12, Premature atrial complexes are now Present Right bundle branch block is no longer Present Confirmed by Hiram Espinoza ([id number]) on 01/13/2023 10:56:14 AM Referred By: REFERRED SELF Confirmed By:Joe Espinoza
--- NOTE | 2023-01-13 16:39 | Hospitalist Progress Note ---
Date of Service January 13, 2023 Assessment & Plan (1) Elevated brain natriuretic peptide (BNP) level: Plan Recent history of flulike illness Persistent cough/weakness Patient coming with persistent cough for 3 weeks ago [employer] after " cold" Patient reports decreasing appetite for about the same duration. Denies any new sore throat or fever or chills. Echo in March 15, 2022 with EF of 60%, enlarged left atrium, grade 1 diastolic dysfunction, moderate MR. At admission, WBC fairly WNL, BNP elevated, EKG with sinus rhythm with PACs, chest x-ray with no acute findings. Viral panel negative. TSH WNL. Patient is afebrile, hemodynamically stable, will continue with symptomatic management with Tessalon Perles/Mucinex, PT/OT. Pt now reports feeling better and coughing less. Hypertensive urgency: Blood pressure elevated in the ED, likely secondary to missing dose for afternoon blood pressure medication. Resumed her home blood pressure medications. Overnight, early AM required PRN IV meds for elev. BP. Currently BP well controlled. Continue to monitor. Low hemoglobin: Hemoglobin of 7.5 at presentation, baseline hemoglobin around 9, denies any issues with bowel movements. FOBT ordered Hgb this AM 8.2 Iron profile and B12/folate level orderd. Folate , B12 normal. Pt reports hx of anemia and being on iron supplement by her brake holder. Aspirin on hold until fobt back and negative or Hb deemed stable. Elevated BNP: Could be a chronic elevation, on outpatient chart review could not find another BNP level to compare. BNP elevated at 511 at presentation, outpatient echo as above. Patient does not look volume overloaded/no crackles or BLE edema on presentation. Will monitor over telemetry, continue to monitor closely. Other chronic medical conditions: History of seizureresume home Dilantin CAD/HLD/depression --continue with home medications as able. DVT prophylaxis: SCDs until hemoglobin deemed stable DNR/DNI Admission and Anticipated Discharge Date Admission Date: January 12, 2023 Subjective Pt seen in follow up of weakness, persistent cough after URI, hypertensive urgency resp. biofire negative Currently sitting up in chair, in no acute distress. Overall says she is feeling better, and having less cough No chest pain no palpitations No fevers chills No abdominal pain nausea vomiting. She is breathing comfortably on room air. Review of Systems Review of Systems: All systems reviewed & are unremarkable except as noted in Subjective Physical Exam Physical Exam: GENERAL: Alert and oriented x3. NAD, on RA. HEENT: NC /AT.EOMI. Pupils equal, round and r eactive to light. Oral mucosa moist . Throat exam - nl mucosa. NECK: No JVD, no neck mass es. HEART: S1 and S2 heard. Regula r rate and rhythm. No murmur, no ga llop. RESPIRATORY: Normal AP diamet er. No accessory muscle use. No wh eezing,no crackle s. ABDOMEN: Soft, bowel sounds pres ent, nontender, no distention. NEURO : Awake, alert, o riented. Answering appropriately. No facial droop. Sp eech is clear. Ob eys simple command s. Moves extremit ies. EXTREMITIES: No edema, no eryt hansa seen. Results & Data Results & Data Vital Signs (Past 12 Hours) Vital Signs Temp Pulse Pulse Resp BP Pulse Ox O2 Del Method 01/13/23 13:30 63 109/60 01/13/23 12:00 36.8 C 76 20 115/73 94 Room Air 01/13/23 10:56 36.8 C 76 18 108/59 L 96 Room Air 01/13/23 08:30 Room Air 01/13/23 07:31 62 01/13/23 07:23 36.6 C 70 18 163/71 H 96 Room Air 01/13/23 06:16 193/76 H Laboratory Results 01/13/23 01/13/23 01/13/23 Range/Units 06:58 06:58 06:58 WBC 5.04 (4.8-10.8) K/ul RBC 2.65 L (4.20-5.40) M/uL Hgb 8.2 L (12.0-16.0) g/dl Hct 23.5 L (37.0-47.0) % MCV 88.7 (80.0-100.0) fL MCH 30.9 (25.0-34.0) pg MCHC 34.9 (32.0-36.0) g/dL RDW Std Deviation 47.8 H (36.4-46.3) fL RDW Coeff of Gee 14.7 H (11.5-14.5) % Plt Count 184 (130-400) K/uL MPV 9.0 L (9.4-12.4) fL Sodium 145 (136-145) mmol/L Potassium 3.9 (3.5-5.1) mmol/L Chloride 113 H (98-107) mmol/L Carbon Dioxide 24 (21-32) mmol/L Anion Gap 8 (3-11) BUN 35 H (6-23) mg/dl Creatinine 1.22 H (0.6-1.2) mg/dl Est Cr Clr Drug Dosing 31.9 ml/min Est GFR ( Amer) 47.1 ml/min Est GFR (Non-Af Amer) 40.6 ml/min BUN/Creatinine Ratio 28.7 H (10-20) Glucose 89 (70-99(Fasting)) mg/dl Calcium 8.5 (8.5-10.1) mg/dl Phosphorus 4.0 (2.5-4.9) mg/dl Magnesium 1.7 (1.7-2.4) mg/dl Iron 126 (35-150) mcg/dl TIBC 305 (250-450) mcg/dl Unsaturated IBC 179 (155-355) mcg/dl Transferrin % Sat 41 (15-50) % Vitamin B12 989 H (180-914) pg/ml Folate 5.75 (>5.38) ng/ml Adenovirus (PCR) (NotDetected) B. pertussis DNA (PCR) (NotDetected) B.parapertussis DNA PCR (NotDetected) C. pneumoniae DNA (PCR) (NotDetected) Coronavirus OC43 (PCR) (NotDetected) Coronavirus HKU1 (PCR) (NotDetected) Coronavirus 229E (PCR) (NotDetected) SARS-CoV-2 (PCR) (NotDetected) Coronavirus NL63 (PCR) (NotDetected) Human Metapneumovir PCR (NotDetected) Influenza Type A (PCR) (NotDetected) Influenza Type B (PCR) (NotDetected) M. pneumoniae (PCR) (NotDetected) Parainfluenza 1 (PCR) (NotDetected) Parainfluenza 2 (PCR) (NotDetected) Parainfluenza 3 (PCR) (NotDetected) Parainfluenza 4 (PCR) (NotDetected) RSV (PCR) (NotDetected) Entero/Rhino (PCR) (NotDetected) 01/12/23 Range/Units 16:50 WBC (4.8-10.8) K/ul RBC (4.20-5.40) M/uL Hgb (12.0-16.0) g/dl Hct (37.0-47.0) % MCV (80.0-100.0) fL MCH (25.0-34.0) pg MCHC (32.0-36.0) g/dL RDW Std Deviation (36.4-46.3) fL RDW Coeff of Gee (11.5-14.5) % Plt Count (130-400) K/uL MPV (9.4-12.4) fL Sodium (136-145) mmol/L Potassium (3.5-5.1) mmol/L Chloride (98-107) mmol/L Carbon Dioxide (21-32) mmol/L Anion Gap (3-11) BUN (6-23) mg/dl Creatinine (0.6-1.2) mg/dl Est Cr Clr Drug Dosing ml/min Est GFR ( Amer) ml/min Est GFR (Non-Af Amer) ml/min BUN/Creatinine Ratio (10-20) Glucose (70-99(Fasting)) mg/dl Calcium (8.5-10.1) mg/dl Phosphorus (2.5-4.9) mg/dl Magnesium (1.7-2.4) mg/dl Iron (35-150) mcg/dl TIBC (250-450) mcg/dl Unsaturated IBC (155-355) mcg/dl Transferrin % Sat (15-50) % Vitamin B12 (180-914) pg/ml Folate (>5.38) ng/ml Adenovirus (PCR) Not Detected (NotDetected) B. pertussis DNA (PCR) Not Detected (NotDetected) B.parapertussis DNA PCR Not Detected (NotDetected) C. pneumoniae DNA (PCR) Not Detected (NotDetected) Coronavirus OC43 (PCR) Not Detected (NotDetected) Coronavirus HKU1 (PCR) Not Detected (NotDetected) Coronavirus 229E (PCR) Not Detected (NotDetected) SARS-CoV-2 (PCR) Not Detected (NotDetected) Coronavirus NL63 (PCR) Not Detected (NotDetected) Human Metapneumovir PCR Not Detected (NotDetected) Influenza Type A (PCR) Not Detected (NotDetected) Influenza Type B (PCR) Not Detected (NotDetected) M. pneumoniae (PCR) Not Detected (NotDetected) Parainfluenza 1 (PCR) Not Detected (NotDetected) Parainfluenza 2 (PCR) Not Detected (NotDetected) Parainfluenza 3 (PCR) Not Detected (NotDetected) Parainfluenza 4 (PCR) Not Detected (NotDetected) RSV (PCR) Not Detected (NotDetected) Entero/Rhino (PCR) Not Detected (NotDetected) Medications Administered Current Inpatient Medications Acetaminophen (Acetaminophen 325 Mg Tab) 650 mg PO Q4H PRN PRN Reason: Pain or Fever Stop: 02/11/23 18:36 Al Hydrox/Mg Hydrox/Simethicone (Aluminum/Magnesium Susp 30 Ml Udc) 15 ml PO Q4H PRN PRN Reason: Dyspepsia Stop: 02/11/23 18:36 Amlodipine Besylate (Amlodipine Besylate 5 Mg Tab) 5 mg PO QAM [facility] Stop: 02/12/23 08:59 Last Admin: 01/13/23 08:31 Dose: 5 mg Benzonatate (Benzonatate 100 Mg Capsule) 100 mg PO TID [facility] Stop: 02/11/23 20:59 Last Admin: 01/13/23 13:32 Dose: 100 mg Buspirone HCl (Buspirone 5 Mg Tab) 5 mg PO BID [facility] Stop: 02/11/23 21:45 Last Admin: 01/13/23 08:32 Dose: 5 mg Calcium/Vitamin D (Calcium 600mg + Vit D 400 Iu Tab) 1 tab PO QAM [facility] Stop: 02/12/23 08:59 Last Admin: 01/13/23 08:31 Dose: 1 tab Carvedilol (Carvedilol 25 Mg Tab) 25 mg PO BID [facility] Stop: 02/11/23 21:45 Last Admin: 01/13/23 08:34 Dose: 25 mg Cyanocobalamin (Cyanocobalamin (B-12) 500 Mcg Tablet) 1,000 mcg PO DAILY ELISABETH Stop: 02/12/23 08:59 Last Admin: 01/13/23 08:32 Dose: 1,000 mcg Escitalopram Oxalate (Escitalopram Oxalate 20 Mg Tab) 20 mg PO DAILY ELISABETH Stop: 02/12/23 08:59 Last Admin: 01/13/23 08:32 Dose: 20 mg Fenofibrate (Fenofibrate Nanocrystallized 145 Mg Tablet) 145 mg PO DAILY ELISABETH Stop: 02/12/23 08:59 Last Admin: 01/13/23 08:32 Dose: 145 mg Ferrous Sulfate (Ferrous Sulfate 325 Mg Tab) 325 mg PO BID ELISABETH Stop: 02/11/23 21:45 Last Admin: 01/13/23 08:32 Dose: 325 mg Guaifenesin (Guaifenesin 600 Mg Tabcr) 600 mg PO Q12 ELISABETH Stop: 02/11/23 20:59 Last Admin: 01/13/23 08:31 Dose: 600 mg Hydralazine HCl (Hydralazine Tab 50 Mg Tab) 50 mg PO TID ELISABETH Stop: 02/11/23 21:45 Last Admin: 01/13/23 13:32 Dose: 50 mg Sodium Chloride (Nss 1000ml) 1,000 mls @ 65 mls/hr IV .[id number] [facility] Stop: 01/13/23 19:09 Last Infusion: 01/13/23 16:39 Dose: Infused Labetalol HCl (Labetalol Hcl Iv 5 Mg/Ml 20ml) 5 mg IV Q6H PRN PRN Reason: hypertension Stop: 02/11/23 19:54 Last Admin: 01/13/23 03:37 Dose: 5 mg Levothyroxine Sodium (Levothyroxine Sodium 175 Mcg Tablet) 175 mcg PO DAILYBB [facility] Stop: 02/12/23 06:29 Last Admin: 01/13/23 06:13 Dose: 175 mcg Lisinopril (Lisinopril 20 Mg Tab) 20 mg PO QAM [facility] Stop: 02/12/23 08:59 Last Admin: 01/13/23 08:31 Dose: 20 mg Magnesium Hydroxide (Magnesium Hydroxide Susp 30 Ml Udc) 30 ml PO Q12H PRN PRN Reason: Constipation Stop: 02/11/23 18:36 Ondansetron HCl (Ondansetron Inj 2 Mg/Ml 2 Ml Vial) 4 mg IV Q6H PRN PRN Reason: Nausea Stop: 02/11/23 18:36 Phenytoin Sodium (Phenytoin Sodium Er 100 Mg Cap) 300 mg PO BID ELISABETH Stop: 02/11/23 21:45 Last Admin: 01/13/23 08:32 Dose: 300 mg Polyethylene Glycol (Polyethylene (Miralax) 17 Gm Pack) 17 gm PO DAILY PRN PRN Reason: Constipation Stop: 02/11/23 18:36
[2023-01-14] MEDS: LEVOTHYROXINE SODIUM 175 MCG TABLET PO SCH (06:32)
[2023-01-14] MEDS: FENOFIBRATE NANOCRYSTALLIZED 145 MG TABLET PO SCH (08:00)
[2023-01-14] MEDS: BENZONATATE 100 MG CAPSULE PO SCH ×2 (08:00→13:13)
[2023-01-14] MEDS: hydrALAZINE TAB 50 MG TAB PO SCH ×2 (08:00→13:13)
[2023-01-14] MEDS: carvediloL 25 MG TAB PO SCH (08:00)
[2023-01-14] MEDS: ESCITALOPRAM OXALATE 20 MG TAB PO SCH (08:01)
[2023-01-14] MEDS: CYANOCOBALAMIN (B-12) 500 MCG TABLET PO SCH (08:01)
[2023-01-14] MEDS: amLODIPine BESYLATE 5 MG TAB PO SCH (08:01)
[2023-01-14] MEDS: PHENYTOIN SODIUM ER 100 MG CAP PO SCH (08:01)
[2023-01-14] MEDS: busPIRone 5 MG TAB PO SCH (08:01)
[2023-01-14] MEDS: guaiFENesin 600 MG TABCR PO SCH (08:02)
[2023-01-14] MEDS: lisinopril 20 MG TAB PO SCH (08:02)
[2023-01-14] MEDS: FERROUS SULFATE 325 MG TAB PO SCH (08:02)
[2023-01-14 08:33] LABS: Hemoglobin 8.6 g/dl (12.0-16.0)
[2023-01-14 08:58] LABS: BUN Creatinine Ratio 26.2 (10-20); Calcium 8.8 mg/dl (8.5-10.1); Creatinine Clr Calc Pharmacy 30.8 ml/min; Est GFR (African American) 45.3 ml/min; Est GFR (Non-African American) 39.1 ml/min; Magnesium 1.7 mg/dl (1.7-2.4); Phosphorus 3.5 mg/dl (2.5-4.9); Potassium 4.2 mmol/L (3.5-5.1)
[2023-01-14] MEDS: CALCIUM 600MG + VIT D 400 IU TAB PO SCH (09:20)
--- NOTE | 2023-01-14 17:35 | Discharge Summary ---
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 Per patient, she suffered from " cold" about 3 weeks ago and then followed her sore throat and cough. She was treated by her PCP with inhalers/steroids/antibiotic which seem to have improved her symptoms and then as she was done with the treatment course, her cough came back. Patient reports whitish mucus with the cough. Patient denies any fever or chills or new sore throat or chest pain or palpitation or belly pain. Patient denies any nausea or vomiting. Patient reports decreased appetite since 3 weeks. Patient denies any pain or burning with passing urine or any diarrhea. Patient reports being weak and tired and wanting to sleep all the time. Patient denies smoking/use of alcohol or recreational drugs. CODE STATUS: DNR/DNI as per my discussion with the patient. No personal history of [place] or stroke or blood clot per patient. Family history negative for [place] or stroke or blood clot per patient. She states that her brother had colon cancer. Medications were discussed with the patient. Plan of care discussed with the patient. Admission Exam Per Admitting Provider GENERAL: Alert and oriented x3. NAD, on RA. HEENT: No pallor, no icterus. Pupils equal, round and reactive to light. Oral mucosa moist. Throat exam - nl mucosa. NECK: No JVD, no neck masses. HEART: S1 and S2 heard. Regular rate and rhythm. No murmur, no gallop. RESPIRATORY SYSTEM: Normal AP diameter. No accessory muscle use. No wheezing, no crackles. ABDOMEN: Soft, bowel sounds present, nontender, no distention. CENTRAL NERVOUS SYSTEM: No facial droop. Speech is clear. Obeys simple commands. Moves extremities. EXTREMITIES: No edema, no erythema seen. Principal Diagnosis Hypertensive urgency Weak Persistent cough Discharge Exam GENERAL: Alert and oriented x3. NAD, on RA, saturating 96% HEENT: NC/AT.EOMI. Pupils equal, round and reactive to light. Oral mucosa moist. Throat exam - nl mucosa. NECK: No JVD, no neck masses. HEART: S1 and S2 heard. Regular rate and rhythm. No murmur. RESPIRATORY: Normal AP diameter. No accessory muscle use. No wheezing,no crackles. ABDOMEN: Soft, bowel sounds present, nontender, no distention. NEURO: Awake, alert, oriented. Answering appropriately. No facial droop. Speech is clear. Obeys simple commands. Moves extremities. EXTREMITIES: No edema, no erythema seen. Discharge Data Allergies Allergy/AdvReac Type Severity Reaction Status Date / Time No Known Allergies Allergy Verified 01/12/23 18:12 Consultations 01/12/23 19:37 ED Decision to Admit Stat Hospital Course (1) Elevated brain natriuretic peptide (BNP) level: Plan Recent history of flulike illness Persistent cough/weakness Patient coming with persistent cough for 3 weeks ago [employer] after " cold" Patient reports decreasing appetite for about the same duration. Denies any new sore throat or fever or chills. Echo in March 15, 2022 with EF of 60%, enlarged left atrium, grade 1 diastolic dysfunction, moderate MR. At admission, WBC fairly WNL, BNP elevated, EKG with sinus rhythm with PACs, chest x-ray with no acute findings. Viral panel negative. TSH WNL. Patient is afebrile, hemodynamically stable, will continue with symptomatic ma nagement with Nicci Lutz/Ambar, PT/OT. Pt now reports feeling much better and coughing less. Hypertensive urgency: Blood pressure elevated in the ED, likely secondary to missing dose for afternoon blood pressure medication. Resumed her home blood pressure medications. Overnight, early AM after admission still required PRN IV meds for elev. BP. Currently BP well controlled. Elev. BP in the morning prior to meds being taken. Discussed with the patient, that she is on several blood pressure medications already. Entire day her blood pressure was well controlled. She will try to take her evening medications later in the evening. She will check her blood pressure at home and she will keep a log. Plan is to follow-up with primary care doctor and/or acid filler, and have her medications adjusted as needed. This was also discussed with patient's son at the bedside. We also went over proper technique, about how to take blood pressure correctly. Low hemoglobin: Anemia d/t CKD Hemoglobin of 7.5 at presentation, baseline hemoglobin around 9, denies any issues with bowel movements. FOBT negative Hgb this AM 8.6 Iron profile and B12/folate level orderd. Folate , B12 normal. Pt reports hx of anemia and being on iron supplement by her acid filler. Aspirin on hold initially - can resume. Elevated BNP: Could be a chronic elevation, on outpatient chart review could not find another BNP level to compare. BNP elevated at 511 at presentation, outpatient echo as above. Patient does not look volume overloaded/no crackles or BLE edema on presentation. Will monitor over telemetry, continue to monitor closely. Other chronic medical conditions: History of seizureresume home Dilantin CAD/HLD/depression --continue with home medications as able. Total Time Total Time Spent Total Time Spent (In Minutes): 40 Discharge Plan Discharge Items Patient Disposition: Home - Self-Care Reason For Visit: WEAKNESS Discharge Diagnosis: Hypertensive urgency Weak Persistent cough Activity: Per Instructions section Non-emergency contact: Primary Care Provider Call non-emergency contact if: you have any medication questions and your symptoms worsen Follow-up/Referrals: Julian Lentz MD [Primary Care Provider] - Diet: Heart Healthy and Low Sodium (2gm) Addtl Attending Provider Instructions: Follow-up with your primary care doctor within 1 week. Monitor your blood pressure, and keep a log. Discuss with your primary care physician and/or your acid filler if your medications need to be adjusted. Make sure not to miss your blood pressure medications. For cough, you can continue using Mucinex, you can also use Tessalon Perles for cough suppression. Pending Studies at Discharge: No Stand-Alone Forms: My [email or web address], Smoking Cessation Medications and DC Order Prescriptions: New benzonatate 100 mg Capsule 100 mg PO TID PRN (Reason: cough) 7 Days Qty: 21 0RF guaifenesin [Mucinex] 600 mg Tablet Extended Release 12hr 600 mg PO Q12 5 Days Qty: 10 0RF Continued levothyroxine 175 mcg tablet 175 mcg PO DAILYBB amlodipine 5 mg tablet 5 mg PO QAM aspirin 81 mg Tablet,Delayed Release (Dr/Ec) 81 mg PO DAILY carvedilol 25 mg tablet 25 mg PO BID fenofibrate micronized 134 mg capsule 134 mg PO DAILY escitalopram oxalate 20 mg tablet 20 mg PO DAILY ketoconazole 2 % shampoo 1 applic TOPICAL UD Rx Instructions: USE WITH EACH HAIR - WASHING phenytoin sodium extended 100 mg capsule 300 mg PO [facility] hydralazine 50 mg tablet 50 mg PO TID furosemide 20 mg tablet 20 mg PO DAILY lisinopril 20 mg tablet 20 mg PO QAM Qty: 0 0RF cyanocobalamin (vitamin B-12) 1,000 mcg Tablet 1,000 mcg PO DAILY zinc acetate 50 mg (zinc) Capsule 50 mg PO QAM ferrous sulfate 325 mg (65 mg iron) Tablet 325 mg PO BID calcium carbonate-vitamin D3 [Calcium + D] 600 mg-5 mcg (200 unit) Tablet 1 tab PO QAM buspirone 5 mg tablet 5 mg PO BID ketoconazole 2 % shampoo 1 applic TOPICAL Q3D PRN (Reason: Skin Irritation) Discharge Orders: Discharge Order (Routine); Ordered 01/14/23 Ordered By: Greg Polanco Admission Data Admit Date/Time: 01/12/23 18:37 Attending Provider: Greg Polanco Admit Provider: Julio Sood Primary Care Provider: Julian Lentz Other Providers: Julio Sood
== END 2023-01-14 18:17 | disposition home or self-care (01) | DRG 305 ==
LOC: ED 15:26 → 2S 18:37 → SUATTDRO 18:37 → 2S 21:25